=== PATIENT | male | born 1940 | race Hispanic/Latino ===

== ENCOUNTER 2020-03-11 13:22 | Inpatient (IN) | payer MEDICARE, OTHER ==
--- NOTE | 2020-03-11 14:52 | RAD ---
CHEST ONE VIEW PORTABLE: History: Generalized weakness FINDINGS: There is cardiomegaly. There are increased linear and interstitial markings noted bilaterally, slight ly more prominent in the right midlung zone with some associated rotation. Evidence for right pleural effusion, small. Bony demineralization. No prior radiographs. IMPRESSION: Nonspecific linear and interstitial parenchymal changes bilaterally which may represent chronic hudson e or could represent some minimal interstitial edema or possibly mild atypical pneumonitis including viral pneumonia. Evidence for right pleural effusion, small. Cardiomegaly. Atherosclerosis of the aor ta. POS: OFF
[2020-03-11 14:56] LABS: #Eosinphils 0.1 thou/uL (0.0-0.7); #Lymphocytes 0.6 thou/uL (1.20-3.40); #Monocytes 0.9 thou/uL (0.11-0.59); #Neutrophils 10.2 thou/uL (1.40-6.50); %Basophils 0.2 % (0.0-1.0); %Eosinophils 0.4 % (0.0-10.0); %Lymphocytes 5.4 % (21.0-51.0); %Monocytes 7.9 % (0.0-10.0); %Neutrophils 86.1 % (42.0-75.0); Hemoglobin 10.6 g/dL (14.0-18.0); Mean Corpuscular HGB CONC 33.1 g/dL (32.0-36.0); Mean Corpuscular Hemoglobin 41.3 pg (27.0-31.0); Mean Platelet Volume 8.4 fL (7.4-10.4); Platelet Count 184 thou/uL (130-400); RBC Distribution Width 14.9 % (11.5-14.5); Red Blood Cell (RBC) Count 2.57 mill/uL (4.70-6.10); White Blood Cell (WBC) Count 11.8 thou/uL (4.8-10.8)
[2020-03-11 15:12] LABS: ALT (SGPT) 13 U/L (8-55); AST (SGOT) 30 U/L (5-34); Albumin 3.3 g/dL (3.4-4.8); Alkaline Phosphatase 91 U/L (40-110); Anion Gap 30 mmol/L (10-20); BUN (Urea Nitrogen) 54 mg/dL (8.4-25.7); Bilirubin, Total 0.8 mg/dL (0.2-1.2); CK (CPK) 636 U/L (30-200); Calc. Creatinine Clearance 0 mL/min (70-130); Calcium 8.7 mg/dL (7.8-10.44); Carbon Dioxide 17 mmol/L (23-31); Chloride 99 mmol/L (98-107); Estimated GFR-MDRD 9; Globulin 3.1 g/dL (2.4-3.5); Glucose 177 mg/dL (83-110); Hypochromia SLIGHT = 6-15 cells (100X) (0-5/hpf); MDiff Complete? YES; Macrocytosis MODERATE=16-30 cells (100X) (0-5/hpf); Platelet Morphology Comment Appears Adequate; Polychromasia SLIGHT = 2-3 cells (100X) (0-2/hpf); Potassium 4.7 mmol/L (3.5-5.1); Protein, Total 6.4 g/dL (5.8-8.1); Sodium 141 mmol/L (136-145)
[2020-03-11 15:39] LABS: CKMB 7.8 ng/mL (0-6.6)
--- NOTE | 2020-03-11 15:57 | CT ---
BRAIN CT WITHOUT IV CONTRAST: History: Altered mental status. Weakness. Injury from a fall. FINDINGS: There is some atrophy and chronic white matter ischemic change. No focal mass or midline shift. No in tra or extraaxial hemorrhage. Bilateral parotid gland masses are noted measuring up to 2.9 cm on the left side with smaller masses involving the right parotid gland, but unchanged from a prior neck CT, 03-06-17. IMPRESSION: Atrophy and chronic white matter ischemic change. No mass or bleed. Extensive sinus mucosal changes including the maxillary and ethmoid sinuses, worse on the right side. Overall stable appearing bilateral parotid gland high density masses. POS: OFF
[2020-03-11 16:02] LABS: Bacteria/HPF 2+ HPF (None Seen); Bilirubin Negative (Negative); Blood, Urine 3+ (Negative); Clarity Turbid (Clear); Glucose, Urine (Dipstick) 50 mg/dL (Negative); Ketone, Urine Negative (Negative); Leukocyte 500 Leu/uL (Negative); Nitrite Negative (Negative); Protein, Urine (Dipstick) 100 mg/dL (Neg-Trace); RBC/HPF 21-50 HPF (0-3); Specific Gravity, Urine 1.024 (1.002-1.036); Squamous Epithelial 0-3 HPF (0-3); Urobilinogen Normal mg/dL (Less than 2); WBC/HPF Greater than 50 HPF (0-3); pH, Urine 5.5 (5.0-9.0)
[2020-03-11 16:03] LABS: Acetaminophen Less than 6.0 mcg/mL (10.0-30.0); Alcohol Less than 10 mg/dL (Less than 10); Salicylate Less than 8.0 mg/dL (15.0-30.0)
[2020-03-11 16:11] LABS: Amphetamine Not Detected (NotDetected); Barbiturates Screen Not Detected (NotDetected); Benzodiazepine Screen Not Detected (NotDetected); Cocaine Metabolite Screen Not Detected (NotDetected); Medtox Control Line Valid? VALID (VALID); Medtox Reader # READER 4; Methadone Not Detected (NotDetected); Methamphetamine Not Detected (NotDetected); Opiate Screen Not Detected (NotDetected); Oxycodone Screen Not Detected (NotDetected); Phencyclidine (PCP) Not Detected (NotDetected); THC/Cannabinoid Screen Not Detected (NotDetected); Tricyclic Screen Not Detected (NotDetected)
--- NOTE | 2020-03-11 17:11 | PDOC.HHP ---
Hospitalist HPI - History of Present Illness Altered mental status History of Present Illness: Patient is a pleasant 79-year-old gentleman who was seen in the emergency room on March 11, 2024 altered mental status, weakness and fall. Please note that patient has 2 different medical record numbers, [id number] and [id number]. These records will need to be merged. Patient was last hospitalized at this facility in March 2018 for scrotal abscess status post incision and drainage and packing. He is a dialysis patient and has dialysis through Dr. Jason. Patiently reportedly missed dialysis a couple of days ago. He also reportedly started a muscle relaxant pill. His son is not aware of the name of the pill but it was reportedly started 2 or 3 days ago. Today she was found by his family in his home covered in feces as well as dried blood. Patient was reportedly complaining of weakness yesterday and therefore they went to check on him today. Patient is unable to provide any significant history today. He is mildly agitated, attempting to pull out intravenous line. Review of systems: Could not be completed secondary to patient's cognitive status. ED Course: BP: 180/96, Pulse: 79, Resp: 20, O2 sat: 95 on (Room Air), Time: 03/11/2020 15: 30. Hospitalist ROS - Review of Systems ROS unobtainable: due to mental status Hospitalist History - Past Medical History Other Medical History: Past medical history:Diabetes mellitus type 2 dyslipidemia hypertension coronary artery disease chronic kidney disease Surgical history: Hernia surgery cardiac stents carotid stents and scrotal abscess status post incision and drainage Social history: Unable to obtain. In the past, patient was smoking 1 pack of cigarettes a day and denied alcohol use or recreational drug use. Family history: No family history of coronary artery disease. Allergies: No known drug allergies. Current medications: These will need to be clarified, but in the past he was on aspirin, calcitriol, carvedilol, Lasix, hydralazine, Lantus insulin, isosorbide mononitrate, latanoprost eyedrops, Procardia XL, timolol/brimonidine/ dorzolamide eyedrops. - Exam General Appearance: awake alert Eye: PERRL, anicteric sclera ENT: normocephalic atraumatic, no oropharyngeal lesions, moist mucosa Neck: supple, symmetric, no thyromegaly, no lymphadenopathy Heart: RRR, no gallops, no rubs, normal peripheral pulses Respiratory: CTAB, no wheezes, no rales, no ronchi Gastrointestinal: soft, non-tender, non-distended, normal bowel sounds Extremities: 2+ LE edema Skin - other findings: Multiple bruises Neurological - other findings: Unable to assess Musculoskeletal - other findings: Moving all 4 extremities Psychiatric: normal affect (Patient appears oriented to person, not to place or time) Hospitalist Results - Labs Result Diagrams: 03/11/20 14:41 03/11/20 14:41 Lab results: WBC 11.8 thou/uL (4.8-10.8) H 03/11/20 14:41 Hgb 10.6 g/dL (14.0-18.0) L 03/11/20 14:41 Hct 32.2 % (42.0-52.0) L 03/11/20 14:41 MCV 125.0 fL (78.0-98.0) H 03/11/20 14:41 Plt Count 184 thou/uL (130-400) 03/11/20 14:41 Neutrophils % 86.1 % (42.0-75.0) H 03/11/20 14:41 Sodium 141 mmol/L (136-145) 03/11/20 14:41 Potassium 4.7 mmol/L (3.5-5.1) 03/11/20 14:41 Chloride 99 mmol/L (98-107) 03/11/20 14:41 Carbon Dioxide 17 mmol/L (23-31) L 03/11/20 14:41 BUN 54 mg/dL (8.4-25.7) H 03/11/20 14:41 Creatinine 6.23 mg/dL (0.7-1.3) H 03/11/20 14:41 Glucose 177 mg/dL (83-110) H 03/11/20 14:41 Lactic Acid 2.2 mmol/L (0.5-2.2) 03/11/20 14:41 Calcium 8.7 mg/dL (7.8-10.44) 03/11/20 14:41 Total Bilirubin 0.8 mg/dL (0.2-1.2) 03/11/20 14:41 AST 30 U/L (5-34) 03/11/20 14:41 ALT 13 U/L (8-55) 03/11/20 14:41 Alkaline Phosphatase 91 U/L (40-110) 03/11/20 14:41 Ammonia 32 umol/L (18-72) 03/11/20 14:41 Creatine Kinase 636 U/L (30-200) H 03/11/20 14:41 CK-MB (CK-2) 7.8 ng/mL (0-6.6) H* 03/11/20 14:41 Troponin I 0.151 ng/mL (< 0.028) H 03/11/20 14:41 Serum Total Protein 6.4 g/dL (5.8-8.1) 03/11/20 14:41 Albumin 3.3 g/dL (3.4-4.8) L 03/11/20 14:41 Urine Ketones Negative mg/dL (Negative) 03/11/20 13:59 Urine Blood 3+ (Negative) A 03/11/20 13:59 Urine Nitrite Negative (Negative) 03/11/20 13:59 Ur Leukocyte Esterase 500 Michelle/uL (Negative) A 03/11/20 13:59 Urine RBC 21-50 HPF (0-3) A 03/11/20 13:59 Urine WBC Greater than 50 HPF (0-3) A 03/11/20 13:59 Ur Squamous Epith Cells 0-3 HPF (0-3) 03/11/20 13:59 Urine Bacteria 2+ HPF (None Seen) A 03/11/20 13:59 Additional comment: Troponin I is in the indeterminate range of 0.151. Lactic acid is normal at 2.2. Ammonia is normal at 32. Creatinine kinase is elevated at 32. BNP is elevated at 16,729.8. Urinalysis is positive for leukocyte esterase and bacteria. Urine and plasma drug screens are essentially unremarkable. - EKG Interpretation EKG: EKG by my review shows normal sinus rhythm, no ST changes to suggest an acute coronary syndrome. - Radiology Interpretation Chest x-ray Status: image reviewed by me Additional Comment: CHEST ONE VIEW PORTABLE: History: Generalized weakness FINDINGS: There is cardiomegaly. There are increased linear and interstitial markings noted bilaterally, slight ly more prominent in the right midlung zone with some associated rotation. Evidence for right pleural effusion, small. Bony demineralization. No prior radiographs. IMPRESSION: Nonspecific linear and interstitial parenchymal changes bilaterally which may represent chronic hudson e or could represent some minimal interstitial edema or possibly mild atypical pneumonitis including viral pneumonia. Evidence for right pleural effusion, small. Cardiomegaly. Atherosclerosis of the aor ta. CT scan - head Status: image reviewed by me Additional Comment: BRAIN CT WITHOUT IV CONTRAST: History: Altered mental status. Weakness. Injury from a fall. FINDINGS: There is some atrophy and chronic white matter ischemic change. No focal mass or midline shift. No in tra or extraaxial hemorrhage. Bilateral parotid gland masses are noted measuring up to 2.9 cm on the left side with smaller masses involving the right parotid gland, but unchanged from a prior neck CT, 03-06-17. IMPRESSION: Atrophy and chronic white matter ischemic change. No mass or bleed. Extensive sinus mucosal changes including the maxillary and ethmoid sinuses, worse on the right side. Overall stable appearing bilateral parotid gland high density masses. Hospitalist H&P A/P - Plan Plan: # acute metabolic encephalopathy: Etiology is unclear,, could be multifactorial including muscle relaxant medication, urinary tract infection and other causes. Patient will be admitted to the hospital for further management. #Urinary tract infection: Patient will be started on ceftriaxone, follow urine culture. #End-stage renal disease on dialysis: Patient reportedly missed dialysis session. Nephrology service is being contacted by ER physician to arrange for dialysis. #Rhabdomyolysis: CK level is relatively low in the 600s range. For now trend CK. Not providing IV fluids at this time since patient actually appears to be in volume overload. #Diabetes mellitus type 2: Start Accu-Cheks and insulin sliding scale. #Hypertension: Resume patient's home medications once clarified, monitor vital signs and titrate antihypertensives as needed. # elevated troponin: Could be secondary to end-stage renal disease. However, given patient's history of coronary artery disease, monitor on telemetry and trend troponins. Patient to be ruled out for COVID-19. Many thanks for allowing me to participate in your patient's care. Please feel free to contact me with any questions or concerns. Level of risk: High. Level of complexity: High. Primary care provider:Dr. Jamar Moreno.
[2020-03-11] MEDS ORDERED: Dextrose 50% Abboject 50 ML SYRINGE SLOW IVP PRN (17:26)
[2020-03-11] MEDS ORDERED: Dextrose 5% in Water 1,000 ML IV PRN (17:26)
[2020-03-11] MEDS ORDERED: Acetaminophen 650 MG Suppository PR PRN (17:26)
[2020-03-11] MEDS ORDERED: cefTRIAXone\\ROCEPHIN 2 GM VIAL ONE (17:37)
[2020-03-11 18:06] LABS: Lactic Acid 2.5 mmol/L (0.5-2.2)
[2020-03-11 18:24] LABS: SARS-CoV-2 NAA Rapid Test Not Detected (NotDetected)
[2020-03-11 18:53] LABS: Troponin I 0.174 ng/mL (< 0.028)
[2020-03-11 21:44] LABS: Troponin I 0.184 ng/mL (< 0.028)
[2020-03-11] MEDS: hydrALAZINE 25 MG TAB PO SCH (23:28)
--- NOTE | 2020-03-12 01:05 | CON ---
DATE OF CONSULTATION: HISTORY OF PRESENT ILLNESS: Mr. Mcintosh is a 79-year-old white male who was admitted for mental status change. He was found at home to be quite confused and quite weak. He had also feces all over his body at that time. We are being consulted for management of his ESRD. He did miss dialysis yesterday. REVIEW OF SYSTEMS: Positive for confusion. No chest pain or any respiratory distress noted. No syncopal episode. No productive cough. Denies any fever or chills. No abdominal pain. Positive for diarrhea. No dysuria. No abdominal pain. MEDICATIONS: Currently not available. PAST MEDICAL HISTORY: 1. ESRD. 2. Type 2 diabetes mellitus. 3. Hypertension. PAST SURGICAL HISTORY: Status post cuffed hemodialysis catheter placed, status post AV fistula. SOCIAL HISTORY: The patient is a . He lives in [place]. He has 1 child. History of smoking 1 pack per day for the last several years. Currently, rare alcohol. No IV drug abuse. Status post blood transfusion. ALLERGIES: UNKNOWN. TRAUMA: None. IMMUNIZATION: Up-to-date. HOSPITALIZATION: Please see past medical history. FAMILY HISTORY: No family history of ESRD. PHYSICAL EXAMINATION: VITAL SIGNS: Blood pressure 180/96, heart rate 79, respiratory rate 20, O2 sat 95% on room air. GENERAL: The patient is awake, but confused, restless, but not in cardiorespiratory distress. SKIN: Adequate turgor. HEENT: Pinkish conjunctivae. Anicteric sclerae. NECK: No neck mass. No carotid bruits. No JVD. CHEST: No deformities. LUNGS: Decreased breath sounds. HEART: Normal sinus rhythm. No murmurs, gallops, or rubs. ABDOMEN: Globular, soft, nontender. No masses. EXTREMITIES: Trace edema. LABORATORY DATA: Of March 11, 2020, white count 11.8, hemoglobin 10.6. Sodium 141, potassium 4.7, chloride 99, carbon dioxide 17, BUN 54, creatinine 6.23, glucose 177, calcium 8.7, AST 30, ALT 13, albumin 3.3. Troponin I 0.151. BNP 16,729. Lactic acid is 2.2. Chest x-ray shows increased lung markings. ASSESSMENT AND PLAN: 1. End-stage renal disease. The patient missed dialysis Friday. Our plan is to schedule him for hemodialysis in a.m. with fluid removal as tolerated by the patient. 2. Elevated BNP. The patient may have underlying chronic obstructive pulmonary disease as well as a possible mild congestive heart failure. We will max out fluid removal with dialysis tomorrow. 3. Mental status change. Tentative report CAT scan showed no acute intracranial abnormality. Continue supportive care. Consider metabolic encephalopathy. It is also possible that the patient was started on certain new medications, which we could not obtain the name. This could be playing a factor in the mental status change. 4. Overall, agree with current management. I did not find any indication for any emergent dialysis tonight. Job ID: [id number]
[2020-03-12 04:53] LABS: #Lymphocytes 0.8 thou/uL (1.20-3.40); #Monocytes 1.1 thou/uL (0.11-0.59); #Neutrophils 13.8 thou/uL (1.40-6.50); %Basophils 0.3 % (0.0-1.0); %Eosinophils 0.2 % (0.0-10.0); %Lymphocytes 4.8 % (21.0-51.0); %Monocytes 6.9 % (0.0-10.0); %Neutrophils 87.9 % (42.0-75.0); Hemoglobin 10.5 g/dL (14.0-18.0); Mean Corpuscular HGB CONC 31.7 g/dL (32.0-36.0); Mean Platelet Volume 8.4 fL (7.4-10.4); Platelet Count 168 thou/uL (130-400); Red Blood Cell (RBC) Count 2.68 mill/uL (4.70-6.10); White Blood Cell (WBC) Count 15.8 thou/uL (4.8-10.8)
[2020-03-12 05:22] LABS: Anion Gap 30 mmol/L (10-20); BUN (Urea Nitrogen) 60 mg/dL (8.4-25.7); CK (CPK) 988 U/L (30-200); Calc. Creatinine Clearance 9 mL/min (70-130); Calcium 8.5 mg/dL (7.8-10.44); Carbon Dioxide 15 mmol/L (23-31); Chloride 100 mmol/L (98-107); Estimated GFR-MDRD 9; Glucose 150 mg/dL (83-110); Potassium 4.9 mmol/L (3.5-5.1); Sodium 140 mmol/L (136-145)
[2020-03-12] MEDS ORDERED: hydrALAZINE 20 MG/ML VIAL SLOW IVP SCH ×3 (06:15→15:00)
[2020-03-12 06:33] LABS: ALT (SGPT) 101 U/L (8-55); AST (SGOT) 148 U/L (5-34); Albumin 3.2 g/dL (3.4-4.8); Alkaline Phosphatase 98 U/L (40-110); Bilirubin, Direct 0.6 mg/dL (0.1-0.3); Bilirubin, Total 0.8 mg/dL (0.2-1.2); Protein, Total 6.5 g/dL (5.8-8.1)
[2020-03-12] MEDS ORDERED: Carvedilol 25 MG TAB PO SCH (08:00)
[2020-03-12] MEDS ORDERED: Aspirin 81 mg Enteric Coated Tablet PO SCH (09:00)
[2020-03-12] MEDS ORDERED: Prevnar 13-Val Conj/PF 0.5 ML SYRINGE IM ONE (09:00)
[2020-03-12 09:12] LABS: Hep B Surf Ag Reflx Confirmation S/CO (NonReactive)
[2020-03-12 09:15] LABS: HBSAg Index 1.35 S/CO (0-0.99)
--- NOTE | 2020-03-12 09:30 | PRG ---
DATE OF SERVICE: 03/12/2020 SUBJECTIVE: Mr. Mcintosh is a 79-year-old male with ESRD, was admitted for mental status change and for a fall. During the initial evaluation, he was also found to be in mild CHF. BNP was also elevated. Our plan is to do an extra hemodialysis with him today. I plan to do at least a 3-hour hemodialysis with attempt to remove 3 L of fluid as tolerated by the patient. This morning, he is less agitated and less confused. OBJECTIVE: VITAL SIGNS: Blood pressure is 209/90 - before BP meds, heart rate 80, respiratory rate 20, temperature 98, O2 saturation 98% on room air. GENERAL: The patient is awake, slightly confused, but not in distress. SKIN: Adequate turgor. HEENT: Pinkish conjunctivae. Anicteric sclerae. NECK: No neck mass. No carotid bruits. No JVD. CHEST: No deformities. LUNGS: Clear breath sounds. HEART: Normal sinus rhythm. No murmurs, gallops, or rubs. ABDOMEN: Globular, soft, nontender. No masses. EXTREMITIES: Positive for edema. No deformities. Medications of March 12, 2020, were reviewed. LABORATORY DATA: Laboratories of March 12, 2020, white count 15.8, hemoglobin 10.5. Sodium 140, potassium 4.9, chloride 100, carbon dioxide 15, BUN 60, creatinine 6.35. CK is 988. ASSESSMENT AND PLAN: 1. Congestive heart failure/elevated BNP - extra hemodialysis today, attempt 3 L fluid removal as tolerated. 2. Labile hypertension. Adjust BP medications as needed. 3. End-stage renal disease. We will continue current Friday, Friday, and Friday hemodialysis regimen, 4-hour hemodialysis treatment. Due to the congestive heart failure, extra dialysis will be done today. Overall, agree with current management. Job ID: [id number]
[2020-03-12] MEDS ORDERED: Ondansetron PF 4 MG/2 ML Vial IVP PRN (10:04)
[2020-03-12] MEDS ORDERED: Calcium Carbonate 500 MG ChewTAB PO PRN (10:04)
[2020-03-12] MEDS ORDERED: Ondansetron ODT 4 MG TAB PO PRN (10:04)
[2020-03-12] MEDS ORDERED: hydrALAZINE 20 MG/ML VIAL SLOW IVP PRN (10:04)
[2020-03-12] MEDS: NIFEdipine XL 30 MG TAB PO SCH (12:13)
[2020-03-12] MEDS: hydrALAZINE 25 MG TAB PO SCH (12:13)
[2020-03-12] MEDS: Finasteride 5 MG TAB PO SCH (12:14)
[2020-03-12] MEDS: Ferrous Sulfate 325 MG TAB PO SCH ×2 (12:14→16:59)
[2020-03-12] MEDS: Calcitriol 0.25 MCG CAP PO SCH (12:14)
[2020-03-12] MEDS ORDERED: Vancomycin HCl 750 MG in Sodium Chloride 0.9% 250 ML 250 ML IVPB SCH (12:30)
[2020-03-12] MEDS ORDERED: HOLD VANCOMYCIN FOR LEVEL >20 FS SCH (12:30)
[2020-03-12] MEDS ORDERED: Vancomycin 1 GM in Premix Bag 1 BAG IVPB SCH (12:30)
[2020-03-12] MEDS ORDERED: Vancomycin HCl 500 MG in Sodium Chloride 0.9% 100 ML IVPB SCH (12:30)
[2020-03-12] MEDS ORDERED: Vancomycin HCl 1.25 GM in Sodium Chloride 0.9% 250 ML 250 ML IVPB SCH (12:30)
[2020-03-12] MEDS ORDERED: Vancomycin HCl 250 MG in Sodium Chloride 0.9% 100 ML IVPB SCH (12:30)
[2020-03-12] MEDS: Labetalol HCl 100 MG/20 ML VIAL SLOW IVP SCH ×3 (13:55→23:32)
[2020-03-12] MEDS: Nitroglycerin 2% Ointment 1 INCH/1 GM Packet TOP SCH ×2 (13:56→18:40)
[2020-03-12] MEDS: cefTRIAXone\\ROCEPHIN 1 GM in Sodium Chloride 0.9% 100 ML IVPB SCH (17:37)
[2020-03-12] MEDS ORDERED: Clopidogrel Bisulfate 75 MG TAB PO SCH (21:00)
[2020-03-12] MEDS: Labetalol HCl 100 MG/20 ML VIAL SLOW IVP PRN (22:05)
[2020-03-12] MEDS: Heparin 5,000 UNITS/ML VIAL SC SCH (22:06)
[2020-03-12] MEDS: Famotidine/PF 20 mg/2ml Vial SLOW IVP SCH (22:06)
[2020-03-12] MEDS: Famotidine 20 MG TAB PO SCH (22:31)
[2020-03-12] MEDS: Senokot S 8.6-50 MG TAB PO SCH (22:32)
--- NOTE | 2020-03-12 23:11 | PDOC.HOSPP ---
- Subjective Encounter Date: 03/12/20 Encounter Time: 09:00 Subjective: Patient seen and examined for altered mentation. Undergoing hemodialysis. Mentation slowly improving. No significant overnight events. - Objective Vital Signs & Weight: Vital Signs (12 hours) Temp Pulse Resp BP Pulse Ox 03/12/20 22:05 81 03/12/20 21:45 98.4 F 81 20 212/98 H 94 L 03/12/20 16:35 72 146/66 H 03/12/20 15:13 98.8 F 83 16 185/92 H 96 03/12/20 13:55 97.8 F 86 16 199/96 H 94 L Weight Weight 146 lb I&O: 03/11/20 03/12/20 03/13/20 06:59 06:59 06:59 Intake Total 350 Balance 350 Result Diagrams: 03/12/20 04:38 03/12/20 04:38 Additional Labs: Accuchecks 03/12/20 03/12/20 16:35 06:11 POC Glucose 113 H 137 H Radiology Reviewed by me: Yes (CT brain negative) EKG Reviewed by me: Yes (Sinus rhythm on telemetry) Hospitalist ROS - Review of Systems ROS unobtainable: due to mental status - Medication Medications: Active Medications Generic Name Dose Route Start Last Admin Trade Name Freq PRN Reason Stop Dose Admin Calcitriol 0.25 mcg 03/12/20 09:00 03/12/20 12:14 Rocaltrol PO Not Given DAILY [facility] Carvedilol 12.5 mg 03/12/20 08:00 03/12/20 12:13 Coreg PO Not Given BID-WM [facility] Clopidogrel Bisulfate 75 mg 03/12/20 21:00 03/12/20 22:31 Plavix PO Not Given HS LINDA Famotidine 20 mg 03/12/20 21:00 03/12/20 22:06 Pepcid SLOW IVP 20 mg Q12HR LINDA Administration Famotidine 20 mg 03/12/20 21:00 03/12/20 22:31 Pepcid PO Not Given BID LINDA Ferrous Sulfate 325 mg 03/12/20 08:00 03/12/20 16:59 Feosol PO Not Given BID-WM [facility] Finasteride 5 mg 03/12/20 09:00 03/12/20 12:14 Proscar PO Not Given DAILY [facility] Heparin Sodium (Porcine) 5,000 units 03/12/20 21:00 03/12/20 22:06 Heparin SC 5,000 units BID LINDA Administration Hydralazine HCl 75 mg 03/11/20 21:00 03/12/20 12:13 Apresoline PO Not Given TID [facility] Ceftriaxone Sodium 1 gm/ 100 mls @ 200 mls/hr 03/12/20 18:00 03/12/20 17:37 Sodium Chloride IVPB 100 mls 1800 [facility] Administration Isosorbide Mononitrate 60 mg 03/12/20 09:00 03/12/20 12:13 Imdur PO Not Given DAILY [facility] Labetalol HCl 10 mg 03/12/20 11:00 03/12/20 17:04 Normodyne SLOW IVP Not Given Q6H [facility] Labetalol HCl 10 mg 03/12/20 10:04 03/12/20 22:05 Normodyne SLOW IVP 10 mg Q1H PRN Administration Systolic BP > 180 Nifedipine 30 mg 03/12/20 09:00 03/12/20 12:13 Procardia Xl PO Not Given DAILY [facility] Nitroglycerin 0.5 inch 03/12/20 11:00 03/12/20 18:40 Nitro-Bid 2% Ointment TOP 0.5 inch Q8H [facility] Administration Senna/Docusate Sodium 2 tab 03/12/20 21:00 03/12/20 22:32 Senokot S PO Not Given BID [facility] Sodium Chloride 10 ml 03/12/20 10:04 03/12/20 22:05 Flush - Normal Saline IVF 10 ml PRN PRN Administration Saline Flush - Exam General Appearance: NAD General - other findings: Undergoing hemodialysis Neck: supple, no JVD Heart: RRR, no gallops, no rubs, normal peripheral pulses Respiratory: no wheezes, no rales, normal chest expansion, rhonchi Gastrointestinal: soft, non-distended, normal bowel sounds, no guarding, no rigidity Extremities: no cyanosis, no clubbing Skin: normal turgor Musculoskeletal: normal tone, normal strength, no muscle wasting, generalized weakness Psychiatric: somnolent Hosp A/P - Plan DVT proph w/heparin (Patient works), DVT proph w/SCDs Toxic metabolic encephalopathy probably due to recent use of baclofen versus UTI versus pneumonia ?Aspiration 1 of 2 blood culture positive for coagulase-negative staph - suspected contaminant Rhabdomyolysis Nonsustained ventricular tachycardia Coronary artery disease status post stent placement End-stage renal disease on hemodialysis Diabetes mellitus type II Hypertension Metabolic acidosis 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 , consult cardiology, add echocardiogram, labs in a.m Plan discussed with patient's son over the phone.Consider brain MRI if mentation does not improve. Please note that patient has 2 different medical record number. For previous records please refer to
[2020-03-13] MEDS: Labetalol HCl 100 MG/20 ML VIAL SLOW IVP PRN ×2 (00:40→21:23)
[2020-03-13] MEDS: hydrALAZINE 20 MG/ML VIAL SLOW IVP PRN ×2 (02:31→18:50)
[2020-03-13] MEDS: Labetalol HCl 100 MG/20 ML VIAL SLOW IVP SCH ×4 (04:10→23:31)
[2020-03-13] MEDS: Nitroglycerin 2% Ointment 1 INCH/1 GM Packet TOP SCH ×3 (04:10→18:15)
[2020-03-13 04:51] LABS: Anion Gap 24 mmol/L (10-20); BUN (Urea Nitrogen) 41 mg/dL (8.4-25.7); CK (CPK) 480 U/L (30-200); Calc. Creatinine Clearance 13 mL/min (70-130); Calcium 8.4 mg/dL (7.8-10.44); Carbon Dioxide 19 mmol/L (23-31); Chloride 103 mmol/L (98-107); Estimated GFR-MDRD 13; Glucose 100 mg/dL (83-110); Potassium 4.1 mmol/L (3.5-5.1); Sodium 142 mmol/L (136-145)
[2020-03-13 04:53] LABS: ALT (SGPT) 156 U/L (8-55); AST (SGOT) 120 U/L (5-34); Alkaline Phosphatase 94 U/L (40-110); Bilirubin, Direct 0.4 mg/dL (0.1-0.3); Bilirubin, Total 0.5 mg/dL (0.2-1.2)
[2020-03-13 05:11] LABS: #Lymphocytes 0.9 thou/uL (1.20-3.40); #Monocytes 0.7 thou/uL (0.11-0.59); #Neutrophils 10.5 thou/uL (1.40-6.50); %Eosinophils 0.4 % (0.0-10.0); %Lymphocytes 7.6 % (21.0-51.0); %Monocytes 5.6 % (0.0-10.0); %Neutrophils 86.4 % (42.0-75.0); Anisocytosis SLIGHT = 6-15 cells (100X) (0-5/hpf); Hemoglobin 10.6 g/dL (14.0-18.0); MDiff Complete? YES; Mean Corpuscular HGB CONC 33.9 g/dL (32.0-36.0); Mean Corpuscular Hemoglobin 41.5 pg (27.0-31.0); Mean Platelet Volume 9.4 fL (7.4-10.4); Platelet Count 154 thou/uL (130-400); RBC Distribution Width 15.2 % (11.5-14.5); Red Blood Cell (RBC) Count 2.55 mill/uL (4.70-6.10); White Blood Cell (WBC) Count 12.2 thou/uL (4.8-10.8)
--- NOTE | 2020-03-13 07:57 | RAD ---
RADIOGRAPH CHEST 1 VIEW: DATE: 03/13/2020 TIME: 5:37 AM HISTORY: 79-year-old male follow-up abnormal chest radiograph COMPARISON: 03/11/2020 FINDINGS: Right pleural effusion partially obscuring underlying lung parenchyma at right base. Cardiomegaly and at least mild pulmonary venous engorgement. No pneumothorax. No new consolidation identified. Prominent interstitial markings mentioned previously, including right midlung zone, now partially obs cured by multiple EKG leads. No interval change overall. IMPRESSION: 1) small right pleural effusion. 2) mild cardiomegaly and mild pulmonary venous congestion. 3) no interval change.
--- NOTE | 2020-03-13 08:30 | PRG ---
DATE OF SERVICE: 03/13/2020 SUBJECTIVE: Mr. Mcintosh is a 79-year-old white male with ESRD, who was admitted for mental status change. He was also incidentally found to have an elevated BNP as well as CHF. He underwent hemodialysis yesterday. Our plan is to do another dialysis session with him, which will be his regular dialysis. He is feeling better. However, the patient is still confused. OBJECTIVE: VITAL SIGNS: Blood pressure 190/88 - before BP medications, heart rate 66, respiratory rate 19, temperature 99.1, and O2 saturation 97% on room air. GENERAL: The patient is awake, but confused, not in distress. SKIN: Adequate turgor. HEENT: Pinkish conjunctivae. Anicteric sclerae. NECK: No neck mass. No carotid bruits. No JVD. CHEST: No deformities. LUNGS: Decreased breath sounds. HEART: Normal sinus rhythm. No murmur. No gallops. No rubs. ABDOMEN: Globular, soft, and nontender. No masses. EXTREMITIES: No edema. No deformities. MEDICATIONS: Of March 13, 2020, was reviewed. LABORATORY DATA: Laboratories of March 13, 2020; white count 12.2, hemoglobin 10.6. Sodium 142, potassium 4.1, chloride 103, carbon dioxide 19, BUN 41, creatinine 4.42, AST 120, and ALT 156. Albumin is noted to be 3.0. IMAGING DATA: Chest x-ray, increased lung markings, relatively unchanged - March 13, 2020, ASSESSMENT AND PLAN: 1. Mental status change - most likely metabolic. CAT scan showed no acute intracranial abnormality. 2. End-stage renal disease, stable. We will continue current hemodialysis regimen. The patient is scheduled for his regular hemodialysis treatment. Again max out fluid removal as tolerated by the patient. 3. Borderline anemia. We will continue to observe. Restart Epogen once the hemoglobin become less than 10. Overall, agree with current management. Recheck basic metabolic panel and CBC in a.m. Job ID: [id number] [facility]
[2020-03-13] MEDS ORDERED: Aspirin 325 mg Enteric Coated Tablet PO SCH (09:00)
[2020-03-13] MEDS: Ferrous Sulfate 325 MG TAB PO SCH ×2 (09:25→17:28)
[2020-03-13] MEDS: Famotidine 20 MG TAB PO SCH (09:26)
[2020-03-13] MEDS: Clopidogrel Bisulfate 75 MG TAB PO SCH (09:26)
[2020-03-13] MEDS: Calcitriol 0.25 MCG CAP PO SCH (09:26)
[2020-03-13] MEDS: Finasteride 5 MG TAB PO SCH (09:27)
[2020-03-13] MEDS: Senokot S 8.6-50 MG TAB PO SCH ×2 (09:27→21:41)
[2020-03-13 09:41] LABS: Vancomycin, Random 12.8 ug/mL (See Comment)
[2020-03-13] MEDS: Heparin 5,000 UNITS/ML VIAL SC SCH ×2 (09:41→21:15)
[2020-03-13] MEDS: Famotidine/PF 20 mg/2ml Vial SLOW IVP SCH (09:41)
[2020-03-13] MEDS: Aspirin 300 MG Suppository PR SCH (09:42)
--- NOTE | 2020-03-13 12:52 | CON ---
NEUROLOGY CONSULTATION DATE OF CONSULTATION: 03/13/2020 REASON FOR CONSULTATION: Altered mental status. HISTORY OF PRESENT ILLNESS: Mr. Den Mcintosh is a 79-year-old male who presented to the emergency room at [facility] on March 11, 2020 with altered mental status secondary to weakness and a fall. He was last hospitalized at our hospital in March 2018 because of scrotal abscess and he is a dialysis patient. History is obtained from review of the medical records. According to that, the patient missed dialysis couple of days ago and he had started a muscle relaxant and not aware of the pain and since then, he has been extremely confused and altered. The patient's family member found him at home covered in feces as well as dried blood and there was a concern about weakness. Head CT was done on initial stay, which was negative for acute intracranial process. REVIEW OF SYSTEMS: Unobtainable due to mental status. PAST MEDICAL HISTORY: Diabetes, dyslipidemia, hypertension, coronary artery disease, chronic kidney disease. PAST SURGICAL HISTORY: Hernia repair, cardiac stents, scrotal abscess incision and drainage. SOCIAL HISTORY: The patient has a history of smoking one pack of cigarettes a day. There is no documented history of alcohol or recreational drug use. FAMILY HISTORY: No significant history of premature coronary artery disease. ALLERGIES: NO KNOWN DRUG ALLERGIES. MEDICATIONS: 1. Aspirin. 2. Calcitriol. 3. Carvedilol. 4. Lasix. 5. Hydralazine. 6. Lantus insulin. 7. Isosorbide mononitrate. 8. Latanoprost eye drops. 9. Procardia XL. 10. Timolol. 11. Brimonidine/dorzolamide eye drops. - Objective Vital Signs & Weight: Vital Signs (12 hours) Temp Pulse Resp BP Pulse Ox 03/13/20 07:08 99.1 F 66 19 190/88 H 97 03/13/20 04:10 64 03/13/20 04:02 98.9 F 64 17 161/73 H 94 L Weight Admit Weight 147 lb 1.6 oz Weight 137 lb 2.04 oz I&O: 03/12/20 03/13/20 03/14/20 06:59 06:59 06:59 Intake Total 350 Balance 350 Accuchecks 03/13/20 03/13/20 03/13/20 11:00 05:48 03:15 POC Glucose 105 110 102 03/12/20 16:35 POC Glucose 113 H Active Medications Generic Name Dose Route Start Last Admin Trade Name Freq PRN Reason Stop Dose Admin Aspirin 300 mg 03/13/20 09:00 03/13/20 09:42 Aspirin PA 300 mg DAILY [facility] Administration Aspirin 325 mg 03/13/20 09:00 03/13/20 09:25 Ecotrin PO Not Given DAILY [facility] Calcitriol 0.25 mcg 03/12/20 09:00 03/13/20 09:26 Rocaltrol PO Not Given DAILY [facility] Carvedilol 12.5 mg 03/12/20 08:00 03/12/20 12:13 Coreg PO Not Given BID-WM [facility] Clopidogrel Bisulfate 75 mg 03/13/20 09:00 03/13/20 09:26 Plavix PO Not Given DAILY [facility] Ferrous Sulfate 325 mg 03/12/20 08:00 03/13/20 09:25 Feosol PO Not Given BID-WM [facility] Finasteride 5 mg 03/12/20 09:00 03/13/20 09:27 Proscar PO Not Given DAILY [facility] Heparin Sodium (Porcine) 5,000 units 03/12/20 21:00 03/13/20 09:41 Heparin SC 5,000 units BID [facility] Administration Hydralazine HCl 75 mg 03/11/20 21:00 03/12/20 12:13 Apresoline PO Not Given TID [facility] Hydralazine HCl 10 mg 03/12/20 10:08 03/13/20 02:31 Apresoline SLOW IVP 10 mg Q4H PRN Administration SBP GREATER THAN 160 Ceftriaxone Sodium 1 gm/ 100 mls @ 200 mls/hr 03/12/20 18:00 03/12/20 17:37 Sodium Chloride IVPB 100 mls 1800 [facility] Administration Isosorbide Mononitrate 60 mg 03/12/20 09:00 03/12/20 12:13 Imdur PO Not Given DAILY [facility] Labetalol HCl 10 mg 03/12/20 11:00 03/13/20 11:30 Normodyne SLOW IVP Not Given Q6H [facility] Labetalol HCl 10 mg 03/12/20 10:04 03/13/20 00:40 Normodyne SLOW IVP 10 mg Q1H PRN Administration Systolic BP > 180 Nifedipine 30 mg 03/12/20 09:00 03/12/20 12:13 Procardia Xl PO Not Given DAILY [facility] Nitroglycerin 0.5 inch 03/12/20 11:00 03/13/20 11:30 Nitro-Bid 2% Ointment TOP Not Given Q8H [facility] Senna/Docusate Sodium 2 tab 03/12/20 21:00 03/13/20 09:27 Senokot S PO Not Given BID [facility] Sodium Chloride 10 ml 03/12/20 10:04 03/12/20 22:05 Flush - Normal Saline IVF 10 ml PRN PRN Administration Saline Flush PHYSICAL EXAMINATION: GENERAL: NAD. CVS: Regular rate and rhythm. CHEST: Clear. ABDOMEN: Soft. NECK: Supple. NEUROLOGIC: Mental status, the patient is awake and oriented to person only. Does not follow commands or maintain eye contact. Cranial nerves, pupils round and reactive to light. Face symmetric. Tongue midline. Moves neck in both direction. Hearing seems to be intact. Motor, muscle tone and bulk are normal. Moving all 4 extremities equally and symmetrically. Cerebellar, did not cooperate with the testing. Sensory, withdraws to nailbed pressure bilaterally. Gait deferred due to patient's safety reason. DATA REVIEWED: I reviewed the labs which were significant for anemia 10.6/32.2 , and chronic kidney disease with a BUN of 54 and creatinine of 6.2. Head CT did not reveal any acute intracranial pathology. Lab results: WBC 11.8 thou/uL (4.8-10.8) H 03/11/20 14:41 Hgb 10.6 g/dL (14.0-18.0) L 03/11/20 14:41 Hct 32.2 % (42.0-52.0) L 03/11/20 14:41 MCV 125.0 fL (78.0-98.0) H 03/11/20 14:41 Plt Count 184 thou/uL (130-400) 03/11/20 14:41 Neutrophils % 86.1 % (42.0-75.0) H 03/11/20 14:41 Sodium 141 mmol/L (136-145) 03/11/20 14:41 Potassium 4.7 mmol/L (3.5-5.1) 03/11/20 14:41 Chloride 99 mmol/L (98-107) 03/11/20 14:41 Carbon Dioxide 17 mmol/L (23-31) L 03/11/20 14:41 BUN 54 mg/dL (8.4-25.7) H 03/11/20 14:41 Creatinine 6.23 mg/dL (0.7-1.3) H 03/11/20 14:41 Glucose 177 mg/dL (83-110) H 03/11/20 14:41 Lactic Acid 2.2 mmol/L (0.5-2.2) 03/11/20 14:41 Calcium 8.7 mg/dL (7.8-10.44) 03/11/20 14:41 Total Bilirubin 0.8 mg/dL (0.2-1.2) 03/11/20 14:41 AST 30 U/L (5-34) 03/11/20 14:41 ALT 13 U/L (8-55) 03/11/20 14:41 Alkaline Phosphatase 91 U/L (40-110) 03/11/20 14:41 Ammonia 32 umol/L (18-72) 03/11/20 14:41 Creatine Kinase 636 U/L (30-200) H 03/11/20 14:41 CK-MB (CK-2) 7.8 ng/mL (0-6.6) H* 03/11/20 14:41 Troponin I 0.151 ng/mL (< 0.028) H 03/11/20 14:41 Serum Total Protein 6.4 g/dL (5.8-8.1) 03/11/20 14:41 Albumin 3.3 g/dL (3.4-4.8) L 03/11/20 14:41 Urine Ketones Negative mg/dL (Negative) 03/11/20 13:59 Urine Blood 3+ (Negative) A 03/11/20 13:59 Urine Nitrite Negative (Negative) 03/11/20 13:59 Ur Leukocyte Esterase 500 Michelle/uL (Negative) A 03/11/20 13:59 Urine RBC 21-50 HPF (0-3) A 03/11/20 13:59 Urine WBC Greater than 50 HPF (0-3) A 03/11/20 13:59 Ur Squamous Epith Cells 0-3 HPF (0-3) 03/11/20 13:59 Urine Bacteria 2+ HPF (None Seen) A 03/11/20 13:59 Additional comment: Troponin I is in the indeterminate range of 0.151. Lactic acid is normal at 2.2. Ammonia is normal at 32. Creatinine kinase is elevated at 32. BNP is elevated at 16,729.8. Urinalysis is positive for leukocyte esterase and bacteria. Urine and plasma drug screens are essentially unremarkable. - EKG Interpretation EKG: EKG by my review shows normal sinus rhythm, no ST changes to suggest an acute coronary syndrome. - Radiology Interpretation Chest x-ray Status: image reviewed by me Additional Comment: CHEST ONE VIEW PORTABLE: History: Generalized weakness FINDINGS: There is cardiomegaly. There are increased linear and interstitial markings noted bilaterally, slight ly more prominent in the right midlung zone with some associated rotation. Evidence for right pleural effusion, small. Bony demineralization. No prior radiographs. IMPRESSION: Nonspecific linear and interstitial parenchymal changes bilaterally which may represent chronic hudson e or could represent some minimal interstitial edema or possibly mild atypical pneumonitis including viral pneumonia. Evidence for right pleural effusion, small. Cardiomegaly. Atherosclerosis of the aor ta. CT scan - head Status: image reviewed by me Additional Comment: BRAIN CT WITHOUT IV CONTRAST: History: Altered mental status. Weakness. Injury from a fall. FINDINGS: There is some atrophy and chronic white matter ischemic change. No focal mass or midline shift. No in tra or extraaxial hemorrhage. Bilateral parotid gland masses are noted measuring up to 2.9 cm on the left side with smaller masses involving the right parotid gland, but unchanged from a prior neck CT, 03-06-17. IMPRESSION: Atrophy and chronic white matter ischemic change. No mass or bleed. Extensive sinus mucosal changes including the maxillary and ethmoid sinuses, worse on the right side. Overall stable appearing bilateral parotid gland high density masses. ASSESSMENT AND PLAN: Mr. Den Mcintosh is consulted for altered mental status, multifactorial secondary to infectious or metabolic etiology; However, intracranial process cannot be completely ruled out. MRI of the brain to rule out acute intracranial process and EEG to rule out underlying seizure activity ordered. Neuro checks every 4 hours. Continue home medications. Continue medical management per Primary Team. Further recommendations depend on the results of the testing. We will continue to follow. Thank you for the consult. Job ID: [id number] [facility]
--- NOTE | 2020-03-13 15:29 | PDOC.HOSPP ---
- Subjective Encounter Date: 03/13/20 Encounter Time: 10:30 Subjective: Patient seen and examined for altered mentation. Undergoing hemodialysis. Remains confused. Failed swallow evaluation. - Objective Vital Signs & Weight: Vital Signs (12 hours) Temp Pulse Resp BP Pulse Ox 03/13/20 07:08 99.1 F 66 19 190/88 H 97 03/13/20 04:10 64 03/13/20 04:02 98.9 F 64 17 161/73 H 94 L Weight Admit Weight 147 lb 1.6 oz Weight 137 lb 2.04 oz I&O: 03/12/20 03/13/20 03/14/20 06:59 06:59 06:59 Intake Total 350 Balance 350 Result Diagrams: 03/14/20 04:12 03/14/20 04:12 Additional Labs: Accuchecks 03/13/20 03/13/20 03/13/20 11:00 05:48 03:15 POC Glucose 105 110 102 03/12/20 16:35 POC Glucose 113 H Radiology Reviewed by me: Yes (Repeat chest x-rayno pneumonia) EKG Reviewed by me: Yes (Sinus rhythm) Hospitalist ROS - Review of Systems ROS unobtainable: due to mental status - Medication Medications: Active Medications Generic Name Dose Route Start Last Admin Trade Name Freq PRN Reason Stop Dose Admin Aspirin 300 mg 03/13/20 09:00 03/13/20 09:42 Aspirin NE 300 mg DAILY [facility] Administration Aspirin 325 mg 03/13/20 09:00 03/13/20 09:25 Ecotrin PO Not Given DAILY [facility] Calcitriol 0.25 mcg 03/12/20 09:00 03/13/20 09:26 Rocaltrol PO Not Given DA[facility] Carvedilol 12.5 mg 03/12/20 08:00 03/12/20 12:13 Coreg PO Not Given BID-[facility] Clopidogrel Bisulfate 75 mg 03/13/20 09:00 03/13/20 09:26 Plavix PO Not Given DAILY [facility] Ferrous Sulfate 325 mg 03/12/20 08:00 03/13/20 09:25 Feosol PO Not Given B[facility] Finasteride 5 mg 03/12/20 09:00 03/13/20 09:27 Proscar PO Not Given DAILY [facility] Heparin Sodium (Porcine) 5,000 units 03/12/20 21:00 03/13/20 09:41 Heparin SC 5,000 units BID [facility] Administration Hydralazine HCl 75 mg 03/11/20 21:00 03/12/20 12:13 Apresoline PO Not Given TID [facility] Hydralazine HCl 10 mg 03/12/20 10:08 03/13/20 02:31 Apresoline SLOW IVP 10 mg Q4H PRN Administration SBP GREATER THAN 160 Ceftriaxone Sodium 1 gm/ 100 mls @ 200 mls/hr 03/12/20 18:00 03/12/20 17:37 Sodium Chloride IVPB 100 mls 1800 [facility] Administration Isosorbide Mononitrate 60 mg 03/12/20 09:00 03/12/20 12:13 Imdur PO Not Given DAILY [facility] Labetalol HCl 10 mg 03/12/20 11:00 03/13/20 11:30 Normodyne SLOW IVP Not Given Q6H [facility] Labetalol HCl 10 mg 03/12/20 10:04 03/13/20 00:40 Normodyne SLOW IVP 10 mg Q1H PRN Administration Systolic BP > 180 Nifedipine 30 mg 03/12/20 09:00 03/12/20 12:13 Procardia Xl PO Not Given DAILY [facility] Nitroglycerin 0.5 inch 03/12/20 11:00 03/13/20 11:30 Nitro-Bid 2% Ointment TOP Not Given Q8H [facility] Senna/Docusate Sodium 2 tab 03/12/20 21:00 03/13/20 09:27 Senokot S PO Not Given BID [facility] Sodium Chloride 10 ml 03/12/20 10:04 03/12/20 22:05 Flush - Normal Saline IVF 10 ml PRN PRN Administration Saline Flush - Exam General Appearance: NAD General - other findings: Confused Neck: supple, no JVD Heart: RRR, no gallops, no rubs, normal peripheral pulses Respiratory: no wheezes, no rales, no ronchi, normal chest expansion Gastrointestinal: soft, non-tender, normal bowel sounds, no guarding, no rigidity Extremities: no cyanosis, no clubbing Psychiatric: not oriented, somnolent Hosp A/P - Plan DVT proph w/heparin, DVT proph w/SCDs Toxic metabolic encephalopathy probably due to recent use of baclofen versus UTI versus pneumonia ?Aspiration 1 of 2 blood culture positive for coagulase-negative staph - suspected contaminant Rhabdomyolysis Nonsustained ventricular tachycardia Coronary artery disease status post stent placement Cardiomyopathy with ejection fraction less than 35 percent End-stage renal disease on hemodialysis Diabetes mellitus type II Hypertension Metabolic acidosis 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 Obtain records from Dr. WEST office. MRI brain negative. Repeat chest x-ray reviewed. CK improving. Await cardio, neuro and infectious disease input. Dialysis per nephrology. Continue IV medications until patient able to tolerate oral medications. A.m. labs. We will try to place NG tube today. Continue sliding scale. Continue other medications as above. 03/12 Continue ceftriaxone, add vancomycin, monitor vancomycin level, continue aspirin , await urine cultures, dialysis per nephrology, speech therapy evaluation start IV labetalol due to inability to take po meds, recheck chest x-ray in a.m. , consult cardiology, add echocardiogram, labs in a.m Plan discussed with patient's son over the phone.Consider brain MRI if mentation does not improve. Please note that patient has 2 different medical record number. For previous records please refer to
--- NOTE | 2020-03-13 16:07 | CON ---
DATE OF CONSULTATION: 03/13/2020 REASON FOR CONSULTATION: Delirium, possible sepsis. HISTORY OF PRESENT ILLNESS: A 79-year-old who has a history of coronary artery disease, type 2 diabetes, and end-stage renal disease on hemodialysis through an AV fistula in the right upper extremity, who was found with altered mental status by family on the floor with stool covering his skin as well as dried blood. The day before, apparently, he was having some weakness. On arrival, the patient was lethargic, he was oriented to self only, his Missy Coma Score was 12. Initial findings included BP 190/70, pulse 77, respirations 20, and temperature 98.3. On exam, the patient appeared in mild distress, pupils were reactive. There was one isolated cervical lymph node, small. Lungs sounds were normal, diminished breath sounds at the bases. Heart exam showed normal findings. Abdomen was not tender. Sodium 141, creatinine 6.23, and liver profile normal. CK was 636 and troponin 0.151. Albumin 3.3. Urinalysis greater than 50 wbc's. Toxicology was negative. COVID was not detected. He had a hepatitis B surface antigen, which was sent for reflex confirmation. Currently, Mr. Mcintosh is being dialyzed. He did not establish eye contact and he barely tried to reply to some questions by nodding his head, but he could not communicate verbally, so review of systems was not feasible. PAST MEDICAL HISTORY: Includes: 1. Ischemic cardiomyopathy. 2. Type 2 diabetes. 3. End-stage renal disease, on hemodialysis with an AV fistula. 4. BPH. 5. Hypertension. ALLERGIES: NONE. CURRENT MEDICATIONS: 1. Ecotrin. 2. Tums. 3. Rocaltrol. 4. Plavix. 5. Heparin. 6. Apresoline. 7. Insulin. 8. Normodyne. 9. Senokot. 10. Vancomycin. 11. Sliding scale. 12. Ceftriaxone. SOCIAL HISTORY: We do not have a lot of details of his social history. PHYSICAL EXAMINATION: VITAL SIGNS: After admission, his temperature max was 99.1, BP 190/88, pulse 66 , respirations 19, and O2 saturation 97 on room air. SKIN: There is a laceration in the dorsal aspect of the left hand and accessed right AV fistula. He is voiding in the diaper. There are multiple areas of nonpalpable purpura in the anterior chest area. There is no lymphadenopathy noted. HEENT: Ocular movements conjugate. Pupils are equal. Oral cavity dry with no [place] teeth remaining. NECK: Supple. No jugular vein distention. LUNGS: Symmetric air entry. Faint crackles in the right base. HEART: S1 and S2. Regular rate with a soft aortic murmur. No S3 or S4. ABDOMEN: Soft, flat, not distended. No ascites. No organomegaly. No evidence of bladder distention. EXTREMITIES: Pulses are diminished in dorsalis pedis. Plantar responses are flexor. Cap refill is normal. I could not test his motility, but he seems to have good muscle tone in all 4 extremities. NEUROLOGIC: He did not answer any questions at the moment. He did not establish eye contact. LABORATORY DATA: Latest labs: White cell count 12,000, hemoglobin 10, and platelets 154 with 86% neutrophils. Sodium 142, creatinine 4.42, bilirubin 0.4 , AST 120, ALT 156, and albumin 3.0. Vitamin B12 of 1800. CK is down to 480. Microbiology with coagulase-negative Staph, 1/2 sets of blood cultures. Urine culture, no growth at 48 hours. Chest x-ray with small right pleural effusion, mild cardiomegaly, prominent interstitial markings. A brain CT, atrophy, chronic white matter ischemic change, sinus mucosal changes in the maxillary and ethmoid sinuses, worse on the right side. ASSESSMENT: 1. Coronary artery disease. 2. End-stage renal disease, on hemodialysis. 3. Type 2 diabetes. 4. Delirium in a patient at least by himself and was feeling weak the day before admission, found by family on the floor of his residence. DISCUSSION: Differential diagnosis includes bacteremia from various sites including the possibility of urinary tract versus a primary ORE MIXER event; for example, CVA, that has not yet been identified. Encephalitis and meningitis are within the differential diagnosis as well. Pulmonary inflammatory process less likely. Intraabdominal inflammatory process is not ruled out. Toxic metabolic encephalopathy is more likely than a primary ORE MIXER inflammatory process or CVA. He is currently on broad-spectrum coverage and we will monitor blood cultures. See how he responds after admission. If his mental state does not improve, may need a CSF evaluation. May need an MRI of his brain or CT abdomen and pelvis with contrast depending on clinical progress. Job ID: [id number] [facility]
--- NOTE | 2020-03-13 16:21 | MRI ---
EXAM: MRI Brain WO Con PROVIDED CLINICAL HISTORY: Seizure and altered mental status. COMPARISON: CT head on 03/11/2020 FINDINGS: There is significant patient motion on all pulse sequences which does degrade image quality. There is increased FLAIR and T2-weighted signal intensity seen in the periventricular white matter wh ich is nonspecific but likely reflective of mild chronic small vessel ischemic changes. There is no restricted diffusion to suggest an acute infarction. There is significant motion artifact, but the hippocampal formations appear overall symmetric. No def initive abnormal signal intensity seen in this region; although, this would be difficult to entirely exclude given patient motion. Volume loss is present. Ventricular system is normal in size, shape, and position for the degree of s ulcal atrophy. The septum pellucidum and third ventricle are in the midline. Incidental note is made of a partially empty sella turcica. Flow voids at the base the brain are difficult to evaluate due to motion artifact. Mucosal thickening is seen in bilateral ethmoidal air cells as well as each maxillary antrum. Small a mount of fluid is seen in the posterior nasopharynx. There is low T2-weighted signal intensity seen in the region left parotid gland on FLAIR image. Axial imaging was not obtained through this region. CT scan examination demonstrated high density lesions within the left parotid gland, and these high-density lesions were seen on prior neck CT exam on 03/06/2017. [place] lenses are absent. IMPRESSION: 1. Limited exam due to significant patient motion, but no acute intracranial abnormality is demonstra danilo. 2. Chronic small vessel ischemic changes and cerebral volume loss. 3. Mild sinus disease. 4. Lesions left parotid gland which are not well assessed or evaluated on this exam. These lesions we re seen on recent head CT as well as prior neck CT on 03/06/2017.
--- NOTE | 2020-03-13 17:41 | RAD ---
EXAM: XR Abdomen 1 View/KUB PROVIDED CLINICAL HISTORY: Evaluate nasogastric tube placement. COMPARISON: None FINDINGS: Nasogastric tube is noted in place which overlies the mediastinum. However, the nasogastric tube is c oiled overlying the lower mediastinum with the tip directed in a cephalad direction to overlie the midthoracic spine. Nasogastric tube does not course into the upper abdomen. Pleural and parenchymal c hanges are partially visualized at the right lung base which may represent right pleural effusion and atelectasis. Cardiac silhouette does appear enlarged. Visualized upper abdomen demonstrates a non specific bowel gas pattern. IMPRESSION: Nasogastric tube overlies the lower mediastinum and is coiled overlying the expected location of the esophagus. Tip overlies the level of the midthoracic spine.
[2020-03-13] MEDS: cefTRIAXone\\ROCEPHIN 1 GM in Sodium Chloride 0.9% 100 ML IVPB SCH (18:09)
[2020-03-13] MEDS ORDERED: Dextrose 5 %-0.45 % NaCl 1,000 ML IV SCH (18:30)
--- NOTE | 2020-03-13 20:14 | CON ---
DATE OF CONSULTATION: 03/13/2020 PRIMARY REHABILITATION DIRECTOR: Dr. Camilo Salgado. REASON FOR CONSULTATION: Depressed left ventricular function in the setting of altered mental status and positive blood cultures. HISTORY OF PRESENT ILLNESS: Mr. Mcintosh is a 79-year-old gentleman, history of end-stage renal disease, on dialysis. He was brought to the hospital with altered mental status. This is being evaluated. The patient remains altered. The patient is unable to give any history now due to his mental status. PAST HISTORY: Coronary artery disease, details not yet known to us; "weak heart muscle" according to one of the family members. PAST SURGICAL HISTORY: Cardiac stents according to one of the family members. SOCIAL HISTORY: Positive for just smoking. MEDICATIONS: Prior to admission; 1. Aspirin. 2. Carvedilol. 3. Lasix. 4. Hydralazine. 5. Isosorbide. 6. Procardia XL. REVIEW OF SYSTEMS: Not obtainable. PHYSICAL EXAMINATION: GENERAL: This is an elderly gentleman. VITAL SIGNS: Blood pressure 190/87, pulse 66. He is not responsive. LUNGS: Clear. CARDIAC: Normal S1, normal S2. ABDOMEN: Soft and nontender. EXTREMITIES: Warm and dry. No clubbing. No cyanosis. There is no edema. LABORATORY DATA: Creatinine is elevated at 4.4, earlier 6.23. AST 120, ALT 156. Echocardiogram, ejection fraction 30% to 35% technically, moderate to severe concentric left ventricular hypertrophy, pulmonary hypertension with pulmonary artery pressure estimates 70 mmHg systolic. CONCLUSION: 1. Altered mental status, being evaluated. 2. Positive blood cultures, 1 out of 2 for Staph. 3. Hypertension. PLAN: 1. Evaluation of mental status is being undertaken. 2. We have requested previous records to see what his previous left ventricular function is. 3. Unable to take oral medicines. May need to have a PEG tube or some other mechanism giving his medicines. Job ID: [id number]
[2020-03-13 20:37] LABS: Hep B Surface AG-Rflx Sendout Negative (Negative)
[2020-03-14 05:16] LABS: Hemoglobin 12.4 g/dL (14.0-18.0); Lymphocytes 8 % (21-51); MDiff Complete? YES; Macrocytosis MODERATE=16-30 cells (100X) (0-5/hpf); Mean Corpuscular HGB CONC 32.2 g/dL (32.0-36.0); Mean Corpuscular Hemoglobin 39.8 pg (27.0-31.0); Mean Platelet Volume 8.7 fL (7.4-10.4); Monocytes 6 % (0-10); Neutrophil 86 % (42-75); Nucleated RBC 1 % (0); Platelet Count 134 thou/uL (130-400); White Blood Cell (WBC) Count 13.9 thou/uL (4.8-10.8)
[2020-03-14 05:29] LABS: ALT (SGPT) 128 U/L (8-55); AST (SGOT) 75 U/L (5-34); Albumin 3.2 g/dL (3.4-4.8); Alkaline Phosphatase 100 U/L (40-110); Anion Gap 22 mmol/L (10-20); BUN (Urea Nitrogen) 26 mg/dL (8.4-25.7); Bilirubin, Total 0.6 mg/dL (0.2-1.2); Calc. Creatinine Clearance 17 mL/min (70-130); Calcium 8.5 mg/dL (7.8-10.44); Carbon Dioxide 20 mmol/L (23-31); Chloride 100 mmol/L (98-107); Estimated GFR-MDRD 19; Globulin 3.1 g/dL (2.4-3.5); Glucose 135 mg/dL (83-110); Potassium 3.7 mmol/L (3.5-5.1); Protein, Total 6.3 g/dL (5.8-8.1); Sodium 138 mmol/L (136-145)
[2020-03-14] MEDS: Nitroglycerin 2% Ointment 1 INCH/1 GM Packet TOP SCH ×2 (06:04→11:53)
[2020-03-14] MEDS: Labetalol HCl 100 MG/20 ML VIAL SLOW IVP SCH ×2 (06:04→11:49)
[2020-03-14] MEDS ORDERED: Dextrose 5 %-0.45 % NaCl 1,000 ML IV SCH (07:21)
[2020-03-14] MEDS ORDERED: hydrALAZINE 25 MG TAB PO SCH (08:08)
--- NOTE | 2020-03-14 08:32 | PRG ---
DATE OF SERVICE: 03/14/2020 SUBJECTIVE: Mr. Mcintosh is a 79-year-old male with ESRD and was admitted for mental status change. Mentation has slowly been improving. Imaging of the of the brain with CT scan showed no acute intracranial abnormality. This morning, he is mentating better. Denies any chest pain or shortness of breath. He did undergo hemodialysis yesterday. OBJECTIVE: VITAL SIGNS: Blood pressure is 200/91, heart rate 60, respiratory rate 19, temperature 98.1, O2 saturation 94%. GENERAL: The patient is awake, alert, supine, comfortable, not in distress. SKIN: Adequate turgor. HEENT: Pinkish conjunctivae. Anicteric sclerae. NECK: No neck mass. No carotid bruits. No JVD. CHEST: No deformities. LUNGS: Clear breath sounds. No wheezing. No crackles. HEART: Normal sinus rhythm. No murmur. No gallops. No rubs. ABDOMEN: Globular, soft nontender, no masses. EXTREMITIES: No edema, no deformities. MEDICATIONS: Of March 14, 2020, was reviewed. LABORATORY DATA: Of March 14, 2020, white count 13.9, hemoglobin 12.4. Sodium 138, potassium 3.7, chloride 100, carbon dioxide 20, BUN 26, creatinine 3.26. AST 75, ALT 128, albumin 3.2. ASSESSMENT/PLAN: 1. Labile hypertension. We will be adjusting BP medications with this patient. Please note, patient is on carvedilol at 6.25 mg p.o. b.i.d. In addition, we will increase hydralazine to 100 mg p.o. t.i.d. 2. End-stage renal disease, stable. We will continue current hemodialysis regimen. 3. Mental status change, slowly improving-consider metabolic encephalopathy. Job ID: [id number]
[2020-03-14] MEDS ORDERED: Famotidine/PF 20 mg/2ml Vial SLOW IVP SCH (09:00)
[2020-03-14] MEDS ORDERED: Carvedilol 6.25 MG TAB PO SCH (09:00)
[2020-03-14] MEDS: NIFEdipine XL 30 MG TAB PO SCH (09:50)
[2020-03-14] MEDS: Ferrous Sulfate 325 MG TAB PO SCH ×2 (09:50→16:12)
[2020-03-14] MEDS: Calcitriol 0.25 MCG CAP PO SCH (09:50)
[2020-03-14] MEDS: Clopidogrel Bisulfate 75 MG TAB PO SCH (09:50)
[2020-03-14] MEDS: Finasteride 5 MG TAB PO SCH (09:51)
[2020-03-14] MEDS: Senokot S 8.6-50 MG TAB PO SCH ×2 (09:51→21:22)
[2020-03-14] MEDS: Famotidine 20 MG TAB PO SCH (09:52)
[2020-03-14] MEDS: hydrALAZINE 20 MG/ML VIAL SLOW IVP PRN (09:52)
[2020-03-14] MEDS: Aspirin 300 MG Suppository PR SCH (09:52)
[2020-03-14] MEDS: Heparin 5,000 UNITS/ML VIAL SC SCH ×2 (09:55→21:22)
--- NOTE | 2020-03-14 10:35 | PRG ---
DATE OF SERVICE: 03/14/2020 SUBJECTIVE: Mr. Mcintosh is much more awake and alert today. He has no complaints. Does not report any chest pain or pressure. No shortness of breath. OBJECTIVE: VITAL SIGNS: Blood pressure is high 200/90, pulse 60. He is just not going to try to get his oral medications. LUNGS: Clear. CARDIAC: Normal S1, normal S2. ASSESSMENT: 1. Congestive heart failure, systolic, probably chronic. Still awaiting records. 2. End-stage renal disease. 3. Confusion, disorientation, improved. PLAN: 1. We will try to go back on his oral medicines. 2. Await records, which have been requested. Job ID: [id number]
--- NOTE | 2020-03-14 13:08 | PDOC.HOSPP ---
- Subjective Encounter Date: 03/14/20 Subjective: NEUROLOGY PROGRESS NOTE Patient alert and oriented to name only. MRI brain and EEG negative. - Objective Vital Signs & Weight: Vital Signs (12 hours) Temp Pulse Pulse Pulse Resp BP BP 03/14/20 11:46 56 L 56 L 79/40 L 03/14/20 11:40 03/14/20 11:23 96.1 F L 57 L 03/14/20 07:42 98.1 F 60 19 03/14/20 06:04 66 187/78 H 03/14/20 04:00 96.7 F L 60 20 BP BP Pulse Ox 03/14/20 11:46 92/47 L 03/14/20 11:40 92 L 03/14/20 11:23 93/45 L 03/14/20 07:42 200/91 H 94 L 03/14/20 06:04 03/14/20 04:00 187/78 H 94 L Weight Admit Weight 147 lb 1.6 oz Weight 130 lb 15.273 oz I&O: 03/13/20 03/14/20 03/15/20 06:59 06:59 06:59 Intake Total 350 542 Output Total 3600 Balance 350 -3058 Result Diagrams: 03/14/20 04:12 03/14/20 04:12 Additional Labs: Accuchecks 03/14/20 03/14/20 03/13/20 07:31 06:16 23:34 POC Glucose 160 H 317 H 128 H 03/13/20 17:01 POC Glucose 96 Radiology Reviewed by me: Yes EKG Reviewed by me: Yes Hospitalist ROS - Review of Systems ROS unobtainable: due to mental status - Medication Medications: Active Medications Generic Name Dose Route Start Last Admin Trade Name Mary PRN Reason Stop Dose Admin Calcitriol 0.25 mcg 03/12/20 09:00 03/14/20 09:50 Rocaltrol PO 0.25 mcg DAILY [facility]DA Administration Clopidogrel Bisulfate 75 mg 03/13/20 09:00 03/14/20 09:50 Plavix PO 75 mg DAILY [facility] Administration Famotidine 20 mg 03/14/20 09:00 03/14/20 09:52 Pepcid PO 20 mg DAILY [facility] Administration Ferrous Sulfate 325 mg 03/12/20 08:00 03/14/20 09:50 Feosol PO 325 mg BID-[facility] LINDA Administration Finasteride 5 mg 03/12/20 09:00 03/14/20 09:51 Proscar PO 5 mg DAILY [facility] Administration Heparin Sodium (Porcine) 5,000 units 03/12/20 21:00 03/14/20 09:55 Heparin SC 5,000 units BID [facility] Administration Hydralazine HCl 10 mg 03/12/20 10:08 03/14/20 09:52 Apresoline SLOW IVP 10 mg Q4H PRN Administration SBP GREATER THAN 160 Ceftriaxone Sodium 1 gm/ 100 mls @ 200 mls/hr 03/12/20 18:00 03/13/20 18:09 Sodium Chloride IVPB 100 mls 1800 LINDA Administration Dextrose/Sodium Chloride 1,000 mls @ 30 mls/hr 03/14/20 07:21 03/14/20 10:13 D5 1/2 Ns IV 1,000 mls .Q24H LINDA Administration Isosorbide Mononitrate 60 mg 03/12/20 09:00 03/14/20 09:51 Imdur PO 60 mg DAILY [facility] Administration Labetalol HCl 10 mg 03/12/20 10:04 03/13/20 21:23 Normodyne SLOW IVP 10 mg Q1H PRN Administration Systolic BP > 180 Nifedipine 30 mg 03/12/20 09:00 03/14/20 09:50 Procardia Xl PO 30 mg DAILY [facility]DA Administration Nitroglycerin 0.5 inch 03/12/20 11:00 03/14/20 11:53 Nitro-Bid 2% Ointment TOP Not Given Q8H LINDA Senna/Docusate Sodium 2 tab 03/12/20 21:00 03/14/20 09:51 Senokot S PO 2 tab BID LINDA Administration Sodium Chloride 10 ml 03/12/20 10:04 03/12/20 22:05 Flush - Normal Saline IVF 10 ml PRN PRN Administration Saline Flush - Exam General Appearance: awake alert Eye: PERRL ENT: normocephalic atraumatic Neck: supple Heart: RRR Respiratory: CTAB Gastrointestinal: soft Extremities: no cyanosis Skin: normal turgor Neurological: no new deficit Psychiatric: normal affect, A&O x 3 Hosp A/P (1) AMS (altered mental status) Code(s): R41.82 - ALTERED MENTAL STATUS, UNSPECIFIED Status: Acute (2) Hypertension Code(s): I10 - ESSENTIAL (PRIMARY) HYPERTENSION Status: Acute (3) Dyslipidemia Code(s): E78.5 - HYPERLIPIDEMIA, UNSPECIFIED Status: Acute (4) CAD (coronary artery disease) Code(s): I25.10 - ATHSCL HEART DISEASE OF [place] CORONARY ARTERY W/O ANG PCTRS Status: Acute (5) Metabolic encephalopathy Code(s): G93.41 - METABOLIC ENCEPHALOPATHY Status: Acute (6) Aspiration pneumonia Code(s): J69.0 - PNEUMONITIS DUE TO INHALATION OF FOOD AND VOMIT Status: Acute - Plan PT/OT, speech therapy, DVT proph w/SCDs 79 year old consulted for altered mental status. Aletered mental status most likely multifactorial due to metabolic and infectious etiology. Intracranial process ruled out by negative MRI Brain and EEG. EEG reviewed and was negative for seizure activity. MRI brain reviewed and was negative for seizure activity. 2 D echo completed . Results noted. LVEF 30-35% Neurochecks every 4 hours. Continue aspirin and statin for secondary stroke prevention. PT/OT/Speech Continue home medications. Continue medical management per primary team and nephrology..
[2020-03-14] MEDS: cefTRIAXone\\ROCEPHIN 1 GM in Sodium Chloride 0.9% 100 ML IVPB SCH (16:11)
[2020-03-14] MEDS: Acetaminophen 325 MG TAB PO PRN (16:12)
[2020-03-14] MEDS: Carvedilol 25 MG TAB PO SCH (16:30)
--- NOTE | 2020-03-14 16:53 | PDOC.HOSPP ---
- Subjective Encounter Date: 03/14/20 Encounter Time: 14:00 Subjective: Patient seen and examined for altered mentation. Mentation gradually improving. No new focal deficit. Passed swallow evaluation. - Objective Vital Signs & Weight: Vital Signs (12 hours) Temp Pulse Pulse Pulse Resp BP BP 03/14/20 15:39 97.6 F 55 L 17 03/14/20 13:59 55 L 55 L 96/48 L 03/14/20 11:46 56 L 56 L 79/40 L 03/14/20 11:40 03/14/20 11:23 96.1 F L 57 L 03/14/20 07:42 98.1 F 60 19 03/14/20 06:04 66 187/78 H BP BP Pulse Ox 03/14/20 15:39 100/51 L 97 03/14/20 13:59 90/52 L 03/14/20 11:46 92/47 L 03/14/20 11:40 92 L 03/14/20 11:23 93/45 L 03/14/20 07:42 200/91 H 94 L 03/14/20 06:04 Weight Admit Weight 147 lb 1.6 oz Weight 130 lb 15.273 oz I&O: 03/13/20 03/14/20 03/15/20 06:59 06:59 06:59 Intake Total 350 542 Output Total 3600 Balance 350 -3058 Result Diagrams: 03/14/20 04:12 03/14/20 04:12 Additional Labs: Accuchecks 03/14/20 03/14/20 03/14/20 11:45 07:31 06:16 POC Glucose 163 H 160 H 317 H 03/13/20 03/13/20 23:34 17:01 POC Glucose 128 H 96 Radiology Reviewed by me: Yes (MRI brain no CVA) EKG Reviewed by me: Yes (Telemetry sinus rhythm) Hospitalist ROS - Review of Systems Respiratory: denies: cough, dry, shortness of breath, hemoptysis, SOB with excertion, pleuritic pain, sputum, wheezing, other Cardiovascular: denies: chest pain, palpitations, orthopnea, paroxysmal noc. dyspnea, edema, light headedness, other - Medication Medications: Active Medications Generic Name Dose Route Start Last Admin Trade Name Freq PRN Reason Stop Dose Admin Acetaminophen 650 mg 03/11/20 17:26 03/14/20 16:12 Tylenol PO 650 mg Q4H PRN Administration Headache/Fever/Mild Pain (1-3) Calcitriol 0.25 mcg 03/12/20 09:00 03/14/20 09:50 Rocaltrol PO 0.25 mcg DAILY [facility] Administration Carvedilol 12.5 mg 03/14/20 17:00 03/14/20 16:30 Coreg PO Not Given BID-[facility] Clopidogrel Bisulfate 75 mg 03/13/20 09:00 03/14/20 09:50 Plavix PO 75 mg DAILY [facility] Administration Famotidine 20 mg 03/14/20 09:00 03/14/20 09:52 Pepcid PO 20 mg DAILY [facility] Administration Ferrous Sulfate 325 mg 03/12/20 08:00 03/14/20 16:12 Feosol PO 325 mg BID-[facility] Administration Finasteride 5 mg 03/12/20 09:00 03/14/20 09:51 Proscar PO 5 mg DAILY [facility] Administration Heparin Sodium (Porcine) 5,000 units 03/12/20 21:00 03/14/20 09:55 Heparin SC 5,000 units BID [facility] Administration Hydralazine HCl 10 mg 03/12/20 10:08 03/14/20 09:52 Apresoline SLOW IVP 10 mg Q4H PRN Administration SBP GREATER THAN 160 Ceftriaxone Sodium 1 gm/ 100 mls @ 200 mls/hr 03/12/20 18:00 03/14/20 16:11 Sodium Chloride IVPB 100 mls 1800 [facility] Administration Isosorbide Mononitrate 60 mg 03/12/20 09:00 03/14/20 09:51 Imdur PO 60 mg DAILY [facility] Administration Labetalol HCl 10 mg 03/12/20 10:04 03/13/20 21:23 Normodyne SLOW IVP 10 mg Q1H PRN Administration Systolic BP > 180 Nifedipine 30 mg 03/12/20 09:00 03/14/20 09:50 Procardia Xl PO 30 mg DAILY [facility] Administration Senna/Docusate Sodium 2 tab 03/12/20 21:00 03/14/20 09:51 Senokot S PO 2 tab BID [facility] Administration Sodium Chloride 10 ml 03/12/20 10:04 03/12/20 22:05 Flush - Normal Saline IVF 10 ml PRN PRN Administration Saline Flush - Exam General Appearance: NAD Heart: RRR, no gallops Respiratory: no wheezes, no rales Gastrointestinal: soft, non-distended, no guarding, no rigidity Extremities: no cyanosis Neurological: no new deficit Psychiatric: normal affect, A&O x 3, somnolent Hosp A/P - Plan Toxic metabolic encephalopathy probably due to recent use of baclofen versus infectious etiology 1 of 2 blood culture positive for coagulase-negative staph - suspected contaminant Rhabdomyolysis Nonsustained ventricular tachycardia Coronary artery disease status post stent placement Chronic systolic heart failure End-stage renal disease on hemodialysis Diabetes mellitus type II Hypertension Metabolic acidosis 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 Discontinue IV hypertensive medications. EEG negative. Discontinue IV fluids. Continue sliding scale. Continue carvedilol. Patient is on aspirin/Plavix at home which will be restarted. Dialysis per nephrology. halfway facility placement. Plan discussed with the son. 03/13 Continue empiric antibiotic, continue rectal aspirin, unable to tolerate oral medication including Plavix. Obtain records from Dr. WEST office. MRI brain negative. Repeat chest x-ray reviewed. CK improving. Await cardio, neuro and infectious disease input. Dialysis per nephrology. Continue IV medications until patient able to tolerate oral medications. A.m. labs. We will try to place NG tube today. Continue sliding scale. Continue other medications as above. 03/12 Continue ceftriaxone, add vancomycin, monitor vancomycin level, continue aspirin , await urine cultures, dialysis per nephrology, speech therapy evaluation start IV labetalol due to inability to take po meds, recheck chest x-ray in a.m. , consult cardiology, add echocardiogram, labs in a.m Plan discussed with patient's son over the phone.Consider brain MRI if mentation does not improve. Please note that patient has 2 different medical record number. For previous records please refer to
[2020-03-14] MEDS ORDERED: Carvedilol 25 MG TAB PO SCH (17:00)
--- NOTE | 2020-03-14 17:57 | PRG ---
DATE OF SERVICE: SUBJECTIVE: Arnaldo is more oriented. He is able to have a conversation and interact with us. He still has a little bit of difficulty with recalling events and he was able to establish eye contact so that there has been marked improvement in his ability to interactive when compared with yesterday. He denies any headaches. He has a little bit of neck pain in the left posterior aspect. No respiratory symptoms. He denied abdominal pain. He does have what he describes as a little bit of suprapubic tenderness. He was having a hip pain on the left side, which has been described to sciatica elsewhere that has improved reportedly. OBJECTIVE: VITAL SIGNS: His temperature max 99.1, is now 97.6, BP 100/51, pulse 55, respirations 17, and O2 saturation 97 on 2 L, a little bit on the hypotensive side. GENERAL: Appears chronically ill. A bit of an ashen color of his skin. HEENT: His ocular movements are conjugate. Oral cavity is dry. NECK: Supple. LUNGS: Symmetric air entry. Faint crackles on the right side. HEART: S1, S2. Diminished heart sounds. ABDOMEN: Flat, soft. Not distended or tender. EXTREMITIES: Quite a bit of muscle wasting particularly in the lower extremities. He is able to move extremities but is diffusely weak. LABORATORY DATA: White cell count is at 13.9, hemoglobin 12.4, platelets 134 with 86% neutrophils and creatinine is 3.26. AST 75, ALT 128, albumin 3.2. Urinalysis greater than. His hepatitis B surface antigen was positive in the reflex but was negative though, so it was not confirmed. ASSESSMENT: Coronary artery disease, ischemic cardiomyopathy, end-stage renal disease, on hemodialysis, type 2 diabetes, delirium, abnormal liver function tests. DISCUSSION: Delirium has improved and has not resolved and it is not clear the sequence of events if he had an arrhythmia and fell down, or another event. It does not appear that he had a [employer] event in view of the results of the brain MRI. It may be multifactorial. We have to scan his abdomen and pelvis to complete the workup with contrast. We will do it tomorrow. He will have dialysis tomorrow. Job ID: [id number] [facility]
--- NOTE | 2020-03-15 08:54 | CT ---
CT OF THE ABDOMEN AND PELVIS WITH IV CONTRAST: INDICATION: A 79-year-old male with abdominal tenderness, diabetes, hypertension, and gastrointestinal disease. COMPARISON: Noncontrast CT of the abdomen and pelvis dated 04/07/2018. FINDINGS: There is a moderate right and small left pleural effusion. There is prominent opacity within the rig ht lower lobe with some scattered air bronchograms which may reflect sequelae of compressive atelecta sis; however, pneumonia is not excluded. There are also some areas of consolidation also present wit hin the right middle lobe, again possibly reflective of atelectasis or pneumonia. There is mild left basilar atelectasis present. There is cardiomegaly. There are prominent vascular calcifications of the coronary and thoracic aorta. There is some layered density within the gallbladder suspicious for small stones or sludge. No focal hepatic lesion is evident. Calcified granuloma are seen within the spleen. The pancreas and adrena l glands appear within normal limits. There are atrophic-appearing kidneys bilaterally with prominen t renovascular calcifications. There is a cyst involving the inferior pole of the right kidney which is unchanged in size. This measures 2.4 cm. There are prominent vascular calcifications involving the abdominopelvic vasculature. There is colonic diverticulosis without overt evidence of active diverticulitis. There is a prominen t amount of retained stool. The appendix is not definitely demonstrated. There is moderate anasarca. There is diffuse osteopenia. There is scattered degenerative and osteoarthritic change. There are p ars defects at L4 with grade I anterolisthesis. No definite acute osseous abnormality is evident. IMPRESSION: 1. Findings suspicious for congestive heart failure. 2. Consolidation of the right lung base may reflect pneumonia or compressive atelectasis from the pa tient's moderate-sized right pleural effusion. There is mild anasarca. 3. Right renal cyst. 4. Gallbladder sludge. 5. Findings of prior granulomatous disease. 6. Chronic findings as above. POS: [facility]
--- NOTE | 2020-03-15 09:11 | PRG ---
DATE OF SERVICE: 03/15/2020 SUBJECTIVE: Mr. Mcintosh is a 79-year-old white male with ESRD and was admitted for mental status change. He had a CAT scan of the head, which showed no acute intracranial abnormality. We are following up this patient for his ESRD as well as maintenance hemodialysis. I have scheduled him for his regular dialysis. He also attempted to max out fluid removal due to his underlying CHF. No acute events noted. The patient is still having intermittent confusion. Please note that the brain MRI was done, which showed chronic small-vessel ischemic disease. PHYSICAL EXAMINATION: VITAL SIGNS: Blood pressure is 165/74, heart rate 59, respiratory rate 16, temperature 98, O2 saturation 95% on room air. GENERAL: Awake, comfortable. Able to respond to verbal stimuli. Not in distress. SKIN: Adequate turgor. HEENT: Pinkish conjunctivae. Anicteric sclerae. No neck mass. No carotid bruits. No JVD. CHEST: No deformities. LUNGS: Clear breath sounds. HEART: Normal sinus rhythm. No murmur. No gallops. No rubs. ABDOMEN: Globular, soft, nontender. No masses. EXTREMITIES: No edema. MEDICATIONS: Medications of March 15, 2020, was reviewed. LABORATORY DATA: Laboratories of March 14, 2020 showed a sodium 138, potassium 3.7, chloride 100, carbon dioxide 20, BUN 26, creatinine 3.26. AST 75, ALT 128. White count 13.9, hemoglobin 12.4. ASSESSMENT AND PLAN: 1. Mental status change-consideration for metabolic encephalopathy remains. He also had an ammonia level done on March 11, 2020, which was normal. 2. Confusion-consideration for possible metabolic encephalopathy. Neurology currently following up the patient. Please note, the MRI showed no acute intracranial abnormality. EEG has been ordered by the neurologist. 3. End-stage renal disease, stable. We will continue current Friday, Friday, and Friday hemodialysis regimen. Again max out fluid removal as tolerated by the patient. 4. Congestive heart failure, clinically improving, maxing out fluid removal with dialysis. Job ID: [id number]
--- NOTE | 2020-03-15 10:10 | EEG ---
DATE OF SERVICE: 03/14/2020 ATTENDING PHYSICIAN: Marika Lee MD. This EEG was performed using 24-channel [employer] video digital EEG machine with 24- disk electrodes. This was an extended 2 hours 6 minutes of inpatient video EEG recording. BACKGROUND: The posterior background rhythm was not observed. HYPERVENTILATION: Not performed. PHOTIC STIMULATION: No significant response seen in the photic stimulation. SLEEP: Drowsiness and sleep are observed. EEG DIAGNOSES: 1. Generalized irregular at times sharply contoured, delta waves of triphasic morphology was seen throughout the recording. 2. Absence of posterior background rhythm. CLINICAL INTERPRETATION: This EEG is consistent with moderate generalized nonspecific cerebral dysfunction. No ictal or interictal epileptiform abnormalities seen during the recording. Delta waves of triphasic morphology seen with metabolic encephalopathy. Clinical correlation is advised. Job ID: [id number] [facility]
[2020-03-15 10:15] LABS: #Lymphocytes 1.2 thou/uL (1.20-3.40); #Monocytes 0.7 thou/uL (0.11-0.59); #Neutrophils 9.8 thou/uL (1.40-6.50); %Basophils 0.2 % (0.0-1.0); %Eosinophils 0.3 % (0.0-10.0); %Monocytes 5.8 % (0.0-10.0); %Neutrophils 83.7 % (42.0-75.0); Hemoglobin 10.9 g/dL (14.0-18.0); Mean Corpuscular HGB CONC 32.6 g/dL (32.0-36.0); Mean Corpuscular Hemoglobin 40.3 pg (27.0-31.0); Mean Platelet Volume 8.4 fL (7.4-10.4); Platelet Count 147 thou/uL (130-400); RBC Distribution Width 14.8 % (11.5-14.5); Red Blood Cell (RBC) Count 2.71 mill/uL (4.70-6.10); White Blood Cell (WBC) Count 11.7 thou/uL (4.8-10.8)
[2020-03-15] MEDS ORDERED: Iopamidol-370 76% 500 ML 1 ML ONE (10:23)
[2020-03-15 10:26] LABS: Vancomycin, Random 6.9 ug/mL (See Comment)
[2020-03-15 10:30] LABS: ALT (SGPT) 98 U/L (8-55); AST (SGOT) 55 U/L (5-34); Alkaline Phosphatase 95 U/L (40-110); Anion Gap 15 mmol/L (10-20); BUN (Urea Nitrogen) 28 mg/dL (8.4-25.7); Bilirubin, Total 0.6 mg/dL (0.2-1.2); Calc. Creatinine Clearance 15 mL/min (70-130); Calcium 8.1 mg/dL (7.8-10.44); Carbon Dioxide 27 mmol/L (23-31); Chloride 98 mmol/L (98-107); Estimated GFR-MDRD 17; Globulin 3.1 g/dL (2.4-3.5); Glucose 128 mg/dL (83-110); Potassium 3.1 mmol/L (3.5-5.1); Protein, Total 6.1 g/dL (5.8-8.1); Sodium 137 mmol/L (136-145)
[2020-03-15] MEDS ORDERED: Potassium Chloride 20 MEQ TAB PO SCH (11:15)
[2020-03-15] MEDS: Carvedilol 25 MG TAB PO SCH ×2 (11:30→17:24)
[2020-03-15] MEDS: Ferrous Sulfate 325 MG TAB PO SCH ×2 (11:31→17:23)
[2020-03-15] MEDS: NIFEdipine XL 30 MG TAB PO SCH (13:27)
[2020-03-15] MEDS: Aspirin 81 mg Enteric Coated Tablet PO SCH (13:27)
[2020-03-15] MEDS: Senokot S 8.6-50 MG TAB PO SCH ×2 (13:27→21:28)
[2020-03-15] MEDS: Finasteride 5 MG TAB PO SCH (13:27)
[2020-03-15] MEDS: Famotidine 20 MG TAB PO SCH (13:27)
[2020-03-15] MEDS: Calcitriol 0.25 MCG CAP PO SCH (13:28)
[2020-03-15] MEDS: Heparin 5,000 UNITS/ML VIAL SC SCH ×2 (13:29→21:28)
[2020-03-15] MEDS: Clopidogrel Bisulfate 75 MG TAB PO SCH (13:30)
[2020-03-15] MEDS: HumaLOG 300 UNITS/3 ML VIAL SC PRN (18:14)
--- NOTE | 2020-03-15 20:31 | PDOC.HOSPP ---
- Subjective Encounter Date: 03/15/20 Encounter Time: 14:00 Subjective: Patient seen and examined for altered mentation. Mentation gradually improving. Tolerating current diet. No fever or chills reported. Had visual hallucinations earlier per RN. - Objective Vital Signs & Weight: Vital Signs (12 hours) Temp Pulse Resp BP Pulse Ox 03/15/20 15:20 97.5 F L 60 16 174/63 H 93 L 03/15/20 11:30 97.5 F L 57 L 16 173/69 H 97 Weight Admit Weight 147 lb 1.6 oz Weight 133 lb 9.602 oz I&O: 03/14/20 03/15/20 03/16/20 06:59 06:59 06:59 Intake Total 542 1150 490 Output Total 3600 3000 Balance -3058 1150 -2540 Result Diagrams: 03/15/20 09:47 03/15/20 09:47 Additional Labs: Accuchecks 03/15/20 03/15/20 03/15/20 16:38 12:33 04:59 POC Glucose 167 H 114 H 139 H 03/14/20 23:54 POC Glucose 197 H Radiology Reviewed by me: Yes (CT abdomennegative for infectious etiology) EKG Reviewed by me: Yes (Sinus rhythm on telemetry) Hospitalist ROS - Review of Systems ROS unobtainable: due to mental status - Medication Medications: Active Medications Generic Name Dose Route Start Last Admin Trade Name Freq PRN Reason Stop Dose Admin Acetaminophen 650 mg 03/11/20 17:26 03/14/20 16:12 Tylenol PO 650 mg Q4H PRN Administration Headache/Fever/Mild Pain (1-3) Aspirin 81 mg 03/15/20 09:00 03/15/20 13:27 Ecotrin PO 81 mg DAILY LINDA Administration Calcitriol 0.25 mcg 03/12/20 09:00 03/15/20 13:28 Rocaltrol PO 0.25 mcg DAILY LINDA Administration Carvedilol 12.5 mg 03/14/20 17:00 03/15/20 17:24 Coreg PO 12.5 mg BID-WM LINDA Administration Clopidogrel Bisulfate 75 mg 03/13/20 09:00 03/15/20 13:30 Plavix PO 75 mg DAILY LINDA Administration Famotidine 20 mg 03/14/20 09:00 03/15/20 13:27 Pepcid PO 20 mg DAILY LINDA Administration Ferrous Sulfate 325 mg 03/12/20 08:00 03/15/20 17:23 Feosol PO 325 mg BID-WM LINDA Administration Finasteride 5 mg 03/12/20 09:00 03/15/20 13:27 Proscar PO 5 mg DAILY LINDA Administration Heparin Sodium (Porcine) 5,000 units 03/12/20 21:00 03/15/20 13:29 Heparin SC 5,000 units BID LINDA Administration Hydralazine HCl 10 mg 03/12/20 10:08 03/14/20 09:52 Apresoline SLOW IVP 10 mg Q4H PRN Administration SBP GREATER THAN 160 Insulin Human Lispro 0 units 03/11/20 17:26 03/15/20 18:14 Humalog SC 2 unit .MILD SLIDING SCALE PRN Administration Mild Correctional Scale Isosorbide Mononitrate 60 mg 03/12/20 09:00 03/15/20 13:27 Imdur PO 60 mg DAILY LINDA Administration Labetalol HCl 10 mg 03/12/20 10:04 03/13/20 21:23 Normodyne SLOW IVP 10 mg Q1H PRN Administration Systolic BP > 180 Nifedipine 30 mg 03/12/20 09:00 03/15/20 13:27 Procardia Xl PO 30 mg DAILY LINDA Administration Senna/Docusate Sodium 2 tab 03/12/20 21:00 03/15/20 13:27 Senokot S PO 2 tab BID LINDA Administration Sodium Chloride 10 ml 03/12/20 10:04 03/12/20 22:05 Flush - Normal Saline IVF 10 ml PRN PRN Administration Saline Flush - Exam General Appearance: ill appearing Neck: supple, no JVD Heart: RRR, no gallops Respiratory: no wheezes, rhonchi Gastrointestinal: soft, non-distended, normal bowel sounds, no guarding, no rigidity Extremities: no cyanosis Psychiatric - other findings: Exam limited due to current mentation Hosp A/P - Plan DVT proph w/SCDs Toxic metabolic encephalopathy probably due to recent use of baclofen versus infectious etiology 1 of 2 blood culture positive for coagulase-negative staph - suspected contaminant Rhabdomyolysis Nonsustained ventricular tachycardia Coronary artery disease status post stent placement Chronic systolic heart failure End-stage renal disease on hemodialysis Diabetes mellitus type II Hypertension Metabolic acidosis 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 Discontinue vancomycinI verified with infectious disease. Change ceftriaxone to p.o. Await records from patient's political science research assistant. Continue carvedilol. Resume hydralazine at low-dose. Continue nitrates. Continue aspirin and Plavix. [facility] facility placement. A.m. labs. CK improving. I discussed with cardiology. 03/14 Continue empiric antibiotics. Discontinue IV hypertensive medications. EEG negative. Discontinue IV fluids. Continue sliding scale. Continue carvedilol. Patient is on aspirin/Plavix at home which will be restarted. Dialysis per nephrology. [facility] facility placement. Plan discussed with the son. 03/13 Continue empiric antibiotic, continue rectal aspirin, unable to tolerate oral medication including Plavix. Obtain records from Dr. WEST office. MRI brain negative. Repeat chest x-ray reviewed. CK improving. Await cardio, neuro and infectious disease input. Dialysis per nephrology. Continue IV medications until patient able to tolerate oral medications. A.m. labs. We will try to place NG tube today. Continue sliding scale. Continue other medications as above. 03/12 Continue ceftriaxone, add vancomycin, monitor vancomycin level, continue aspirin , await urine cultures, dialysis per nephrology, speech therapy evaluation start IV labetalol due to inability to take po meds, recheck chest x-ray in a.m. , consult cardiology, add echocardiogram, labs in a.m Plan discussed with patient's son over the phone.Consider brain MRI if mentation does not improve. Please note that patient has 2 different medical record number. For previous records please refer to
[2020-03-15] MEDS: Cefdinir 300 MG CAP PO SCH (21:28)
[2020-03-15] MEDS: hydrALAZINE 25 MG TAB PO SCH (21:28)
[2020-03-16 04:56] LABS: ALT (SGPT) 82 U/L (8-55); AST (SGOT) 42 U/L (5-34); Albumin 2.8 g/dL (3.4-4.8); Alkaline Phosphatase 97 U/L (40-110); Anion Gap 15 mmol/L (10-20); BUN (Urea Nitrogen) 21 mg/dL (8.4-25.7); Bilirubin, Total 0.5 mg/dL (0.2-1.2); CK (CPK) 120 U/L (30-200); Calc. Creatinine Clearance 17 mL/min (70-130); Calcium 8.2 mg/dL (7.8-10.44); Carbon Dioxide 26 mmol/L (23-31); Chloride 102 mmol/L (98-107); Estimated GFR-MDRD 19; Glucose 149 mg/dL (83-110); Potassium 3.8 mmol/L (3.5-5.1); Protein, Total 5.8 g/dL (5.8-8.1); Sodium 139 mmol/L (136-145)
[2020-03-16 05:32] LABS: Hemoglobin 11.4 g/dL (14.0-18.0); Mean Corpuscular HGB CONC 32.7 g/dL (32.0-36.0); Mean Corpuscular Hemoglobin 40.9 pg (27.0-31.0); Mean Platelet Volume 8.6 fL (7.4-10.4); Platelet Count 139 thou/uL (130-400); RBC Distribution Width 15.1 % (11.5-14.5); Red Blood Cell (RBC) Count 2.78 mill/uL (4.70-6.10); White Blood Cell (WBC) Count 10.4 thou/uL (4.8-10.8)
[2020-03-16 05:38] LABS: Band 1 % (5-11); Lymphocytes 13 % (21-51); MDiff Complete? YES; Macrocytosis MODERATE=16-30 cells (100X) (0-5/hpf); Monocytes 8 % (0-10); Neutrophil 78 % (42-75)
[2020-03-16] MEDS: Famotidine 20 MG TAB PO SCH (08:56)
[2020-03-16] MEDS: Carvedilol 25 MG TAB PO SCH ×2 (08:57→17:11)
[2020-03-16] MEDS: Ferrous Sulfate 325 MG TAB PO SCH ×2 (08:57→17:11)
[2020-03-16] MEDS: Finasteride 5 MG TAB PO SCH (08:58)
[2020-03-16] MEDS: Aspirin 81 mg Enteric Coated Tablet PO SCH (08:58)
[2020-03-16] MEDS: Senokot S 8.6-50 MG TAB PO SCH ×2 (08:58→20:00)
[2020-03-16] MEDS: Clopidogrel Bisulfate 75 MG TAB PO SCH (08:58)
[2020-03-16] MEDS: NIFEdipine XL 30 MG TAB PO SCH (08:58)
[2020-03-16] MEDS: Calcitriol 0.25 MCG CAP PO SCH (08:58)
[2020-03-16] MEDS: hydrALAZINE 25 MG TAB PO SCH ×3 (08:59→20:00)
[2020-03-16] MEDS: Heparin 5,000 UNITS/ML VIAL SC SCH (08:59)
--- NOTE | 2020-03-16 09:12 | PRG ---
DATE OF SERVICE: 03/16/2020 SUBJECTIVE: Mr. Mcintosh is a 79-year-old male with ESRD, was initially admitted for mental status change. Initial CAT scan showed no acute intracranial abnormality. In addition, on March 14, an EEG was done by his neurologist. It was found to be consistent with moderate generalized nonspecific cerebral dysfunction. No evidence of epilepsy was noted. No other complaints today. No chest pain or shortness of breath. OBJECTIVE: VITAL SIGNS: Blood pressure 136/84, heart rate 65, respiratory rate 16, temperature 97.5, and O2 saturation 92%. GENERAL: The patient is awake, alert, comfortable, less confused, not in distress. SKIN: Adequate turgor. HEENT: Pinkish conjunctivae. Anicteric sclerae. NECK: No neck mass. No carotid bruits. No JVD. CHEST: No deformities. LUNGS: Clear breath sounds. HEART: Normal sinus rhythm. No murmurs. No gallops. No rubs. ABDOMEN: Globular, soft, and nontender. No masses. EXTREMITIES: No edema. No deformities. MEDICATIONS: Medications of 03/16 reviewed. LABORATORY DATA: Laboratories of March 16, 2020; white count 10.4, hemoglobin 11.4. Sodium 139, potassium 3.8, chloride 102, carbon dioxide 26, BUN 21, creatinine 3.21, glucose 149, and calcium 8.2. AST 42, ALT 82, and albumin 2.8. ASSESSMENT AND PLAN: 1. End-stage renal disease, stable, tolerating current hemodialysis regimen. Fluid removal is also being tolerated. 2. Anemia, stable. No indication for any Epogen. 3. Congestive heart failure-maxing out fluid removal, clinically improving. 4. Mental status change-secondary to presumed metabolic encephalopathy. Continue supportive care. The patient is improving. 5. Recheck basic met and CBC in a.m. Job ID: [id number] [facility]
[2020-03-16] MEDS: HumaLOG 300 UNITS/3 ML VIAL SC PRN ×2 (12:34→21:20)
--- NOTE | 2020-03-16 15:32 | PDOC.HOSPP ---
- Subjective Encounter Date: 03/16/20 Encounter Time: 10:30 Subjective: Patient seen and examined for altered mentation. Mentation slowly improving. Still has hallucinations. No fever, nausea or cough reported. - Objective Vital Signs & Weight: Vital Signs (12 hours) Temp Pulse Resp BP Pulse Ox 03/16/20 11:25 97.2 F L 57 L 18 115/55 L 92 L 03/16/20 07:25 97.5 F L 65 16 136/84 92 L 03/16/20 04:00 97.7 F 57 L 15 157/65 H 100 Weight Admit Weight 147 lb 1.6 oz Weight 129 lb 9.6 oz I&O: 03/15/20 03/16/20 03/17/20 06:59 06:59 06:59 Intake Total 1150 640 Output Total 3000 Balance 1150 -2360 Result Diagrams: 03/16/20 03:56 03/16/20 03:56 Additional Labs: Accuchecks 03/16/20 03/16/20 03/15/20 10:59 05:17 21:22 POC Glucose 203 H 152 H 170 H 03/15/20 16:38 POC Glucose 167 H EKG Reviewed by me: Yes (Sinus rhythm on telemetry) Hospitalist ROS - Review of Systems Respiratory: denies: cough, dry, shortness of breath, hemoptysis, SOB with excertion, pleuritic pain, sputum, wheezing, other Cardiovascular: denies: chest pain, palpitations, orthopnea, paroxysmal noc. dyspnea, edema, light headedness, other - Medication Medications: Active Medications Generic Name Dose Route Start Last Admin Trade Name Yohanq PRN Reason Stop Dose Admin Acetaminophen 650 mg 03/11/20 17:26 03/14/20 16:12 Tylenol PO 650 mg Q4H PRN Administration Headache/Fever/Mild Pain (1-3) Aspirin 81 mg 03/15/20 09:00 03/16/20 08:58 Ecotrin PO 81 mg DAILY LINDA Administration Calcitriol 0.25 mcg 03/12/20 09:00 03/16/20 08:58 Rocaltrol PO 0.25 mcg DAILY LINDA Administration Carvedilol 12.5 mg 03/14/20 17:00 03/16/20 08:57 Coreg PO 12.5 mg BID- LINDA Administration Cefdinir 300 mg 03/15/20 21:00 03/15/20 21:28 Omnicef PO 300 mg HS LINDA Administration Clopidogrel Bisulfate 75 mg 03/13/20 09:00 03/16/20 08:58 Plavix PO 75 mg DAILY LINDA Administration Ferrous Sulfate 325 mg 03/12/20 08:00 03/16/20 08:57 Feosol PO 325 mg BID-WM LINDA Administration Finasteride 5 mg 03/12/20 09:00 03/16/20 08:58 Proscar PO 5 mg DAILY LINDA Administration Heparin Sodium (Porcine) 5,000 units 03/12/20 21:00 03/16/20 08:59 Heparin SC 5,000 units BID [facility] Administration Hydralazine HCl 10 mg 03/12/20 10:08 03/14/20 09:52 Apresoline SLOW IVP 10 mg Q4H PRN Administration SBP GREATER THAN 160 Hydralazine HCl 25 mg 03/15/20 21:00 03/16/20 15:13 Apresoline PO 25 mg TID [facility] Administration Insulin Human Lispro 0 units 03/11/20 17:26 03/16/20 12:34 Humalog SC 3 unit .MILD SLIDING SCALE PRN Administration Mild Correctional Scale Isosorbide Mononitrate 60 mg 03/12/20 09:00 03/16/20 08:58 Imdur PO 60 mg DAILY [facility] Administration Labetalol HCl 10 mg 03/12/20 10:04 03/13/20 21:23 Normodyne SLOW IVP 10 mg Q1H PRN Administration Systolic BP > 180 Nifedipine 30 mg 03/12/20 09:00 03/16/20 08:58 Procardia Xl PO 30 mg DAILY [facility] Administration Senna/Docusate Sodium 2 tab 03/12/20 21:00 03/16/20 08:58 Senokot S PO 2 tab BID [facility] Administration Sodium Chloride 10 ml 03/12/20 10:04 03/12/20 22:05 Flush - Normal Saline IVF 10 ml PRN PRN Administration Saline Flush - Exam General Appearance: NAD Neck: supple, no JVD Heart: RRR, no gallops Respiratory: no wheezes, no ronchi Gastrointestinal: non-tender, normal bowel sounds Extremities: no cyanosis Neurological: no new deficit Psychiatric: A&O x 3, somnolent Hosp A/P - Plan DVT proph w/heparin Toxic metabolic encephalopathy probably due to recent use of baclofen versus infectious etiologyimproving Rhabdomyolysis Nonsustained ventricular tachycardia Coronary artery disease status post stent placement Chronic systolic heart failure Peripheral vascular disease End-stage renal disease on hemodialysis Diabetes mellitus type II Hypertension Metabolic acidosis 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 Salgado. Will need event monitor at [place]. Continue dialysis and other medications as above. Will hold subcu heparin for now due to bruising and high risk of bleeding while on aspirin and Plavix. Add nicotine patch as needed. A.m. labs 03/15 Replace potassium. Discontinue vancomycinI verified with infectious disease. Change ceftriaxone to p.o. Await records from patient's hollow handle knife assembler. Continue carvedilol. Resume hydralazine at low-dose. Continue nitrates. Continue aspirin and Plavix. senior care facility placement. A.m. labs. CK improving. I discussed with cardiology. 03/14 Continue empiric antibiotics. Discontinue IV hypertensive medications. EEG negative. Discontinue IV fluids. Continue sliding scale. Continue carvedilol. Patient is on aspirin/Plavix at home which will be restarted. Dialysis per nephrology. senior care facility placement. Plan discussed with the son. 03/13 Continue empiric antibiotic, continue rectal aspirin, unable to tolerate oral medication including Plavix. Obtain records from Dr. SALGADO office. MRI brain negative. Repeat chest x-ray reviewed. CK improving. Await cardio, neuro and infectious disease input. Dialysis per nephrology. Continue IV medications until patient able to tolerate oral medications. A.m. labs. We will try to place NG tube today. Continue sliding scale. Continue other medications as above. 03/12 Continue ceftriaxone, add vancomycin, monitor vancomycin level, continue aspirin , await urine cultures, dialysis per nephrology, speech therapy evaluation start IV labetalol due to inability to take po meds, recheck chest x-ray in a.m. , consult cardiology, add echocardiogram, labs in a.m Plan discussed with patient's son over the phone.Consider brain MRI if mentation does not improve. Please note that patient has 2 different medical record number. For previous records please refer to
[2020-03-16] MEDS: Nicotine 7 MG PATCH TD PRN (17:53)
[2020-03-16] MEDS: Cefdinir 300 MG CAP PO SCH (20:00)
[2020-03-17 05:31] LABS: #Eosinphils 0.3 thou/uL (0.0-0.7); #Lymphocytes 1.3 thou/uL (1.20-3.40); #Monocytes 0.9 thou/uL (0.11-0.59); #Neutrophils 7.6 thou/uL (1.40-6.50); %Eosinophils 2.6 % (0.0-10.0); %Lymphocytes 12.9 % (21.0-51.0); %Monocytes 8.8 % (0.0-10.0); %Neutrophils 75.7 % (42.0-75.0); Hemoglobin 11.7 g/dL (14.0-18.0); Mean Corpuscular HGB CONC 31.5 g/dL (32.0-36.0); Mean Corpuscular Hemoglobin 39.9 pg (27.0-31.0); Mean Platelet Volume 8.9 fL (7.4-10.4); Platelet Count 160 thou/uL (130-400); Red Blood Cell (RBC) Count 2.93 mill/uL (4.70-6.10); White Blood Cell (WBC) Count 10.1 thou/uL (4.8-10.8)
[2020-03-17 05:32] LABS: Anion Gap 20 mmol/L (10-20); BUN (Urea Nitrogen) 34 mg/dL (8.4-25.7); Calc. Creatinine Clearance 11 mL/min (70-130); Calcium 8.5 mg/dL (7.8-10.44); Carbon Dioxide 23 mmol/L (23-31); Chloride 99 mmol/L (98-107); Estimated GFR-MDRD 13; Glucose 125 mg/dL (83-110); Potassium 4.2 mmol/L (3.5-5.1); Sodium 138 mmol/L (136-145)
[2020-03-17] MEDS: HumaLOG 300 UNITS/3 ML VIAL SC PRN ×2 (06:15→20:33)
[2020-03-17] MEDS: NIFEdipine XL 30 MG TAB PO SCH (08:35)
[2020-03-17] MEDS: Carvedilol 25 MG TAB PO SCH ×2 (08:35→17:23)
[2020-03-17] MEDS: Calcitriol 0.25 MCG CAP PO SCH (08:35)
[2020-03-17] MEDS: hydrALAZINE 25 MG TAB PO SCH ×4 (08:35→20:34)
[2020-03-17] MEDS: Ferrous Sulfate 325 MG TAB PO SCH ×2 (08:35→17:23)
[2020-03-17] MEDS: Aspirin 81 mg Enteric Coated Tablet PO SCH (08:35)
[2020-03-17] MEDS: Finasteride 5 MG TAB PO SCH (08:35)
[2020-03-17] MEDS: Senokot S 8.6-50 MG TAB PO SCH ×2 (08:36→20:34)
[2020-03-17] MEDS: Clopidogrel Bisulfate 75 MG TAB PO SCH (08:36)
--- NOTE | 2020-03-17 09:05 | PRG ---
DATE OF SERVICE: 03/17/2020 SUBJECTIVE: Mr. Mcintosh is a 79-year-old male with ESRD and admitted for mental status change. Neurological workup was essentially negative. EEG and CAT scan showed no acute abnormality. His change in mentation is most likely from metabolic encephalopathy. We will continue to follow this patient for management of his ESRD. I have scheduled him for another dialysis session today. The patient is still agitated and confused. OBJECTIVE: VITAL SIGNS: Blood pressure 120/57, heart rate 60, respiratory rate 24, and O2 saturation 90%. GENERAL: The patient is awake, confused, but not in distress. SKIN: Adequate turgor. HEENT: He has pinkish conjunctivae. Anicteric sclerae. NECK: No neck mass. No carotid bruits. No JVD. CHEST: No deformities. LUNGS: Clear breath sounds. HEART: Normal sinus rhythm. No murmur. No gallops. No rubs. ABDOMEN: Globular, soft, and nontender. No masses. EXTREMITIES: No edema. No deformities. MEDICATIONS: Of March 17, 2020, was reviewed. LABORATORY DATA: Laboratories of March 17, 2020; white count 10.1, hemoglobin 11.7. Sodium 138, potassium 4.2, chloride 99, carbon dioxide 23, BUN 34, creatinine 4.58, glucose 125, and calcium 8.5. TSH 2.7. ASSESSMENT AND PLAN: 1. End-stage renal disease, stable. We will continue current Friday, Friday, and Friday hemodialysis. The patient is scheduled for dialysis today. My plan is to attempt to remove around 2 L of fluid as tolerated by the patient. 2. Slightly decreased hemoglobin - we will continue to observe. 3. Mental status change - secondary to presumed metabolic encephalopathy. Neurology following. Please note, CAT scan of the head showed no acute intracranial abnormality. EEG showed no evidence of any seizure activity. Overall, agree with current management. Recheck CBC and basic metabolic panel in a.m. Job ID: [id number]
[2020-03-17] MEDS: Acetaminophen 325 MG TAB PO PRN (14:20)
--- NOTE | 2020-03-17 15:34 | PRG ---
DATE OF SERVICE: 03/17/2020 SUBJECTIVE: Mr. Mcintosh is awake, little bit confused, does not appear in distress. No diarrhea. No respiratory symptoms. OBJECTIVE: VITAL SIGNS: He has been afebrile. BP 130/59, pulse 58, respirations 18, and O2 saturation ranging from 93 to 95. LUNGS: Symmetric air entry. HEART: S1 and S2, regular rate. ABDOMEN: Soft, not distended. LABORATORY DATA: White cell count is down to 10.1, hemoglobin 11.7, platelets 160 with 75% neutrophils. Sodium 138, creatinine 4.5. TSH 2.7 and Microbiology with no significant findings. The repeat abdomen and pelvis CT with findings suspicious for CHF, may be a consolidation in the right lung base or bladder sludge. ASSESSMENT AND DISCUSSION: Coronary artery disease; ischemic cardiomyopathy; end-stage renal disease, on hemodialysis; type 2 diabetes; delirium; abnormal liver function tests; abnormal CT of chest with possible early pneumonitis. As pointed out by Dr. Knox, the patient had been given baclofen by the PMNR MD. The dose that was prescribed was higher than what it is recommended for patients in end-stage renal disease, so that could have played a role in the patient's clinical changes that led to admission. Job ID: [id number]
[2020-03-17] MEDS: Nicotine 7 MG PATCH TD PRN (17:35)
--- NOTE | 2020-03-17 18:07 | PDOC.HOSPP ---
- Subjective Encounter Date: 03/17/20 Encounter Time: 12:00 Subjective: Patient seen and examined for encephalopathy. Mentation gradually improving. Somewhat more confused today. No overnight events reported. - Objective Vital Signs & Weight: Vital Signs (12 hours) Temp Pulse Resp BP Pulse Ox 03/17/20 16:00 97.8 F 62 22 H 151/67 H 97 03/17/20 14:21 58 L 03/17/20 13:20 96.9 F L 58 L 18 130/59 L 93 L 03/17/20 08:37 60 03/17/20 08:35 60 03/17/20 08:00 97.2 F L 88 18 136/65 95 Weight Admit Weight 147 lb 1.6 oz Weight 131 lb 8 oz I&O: 03/16/20 03/17/20 03/18/20 06:59 06:59 06:59 Intake Total 640 720 360 Output Total 3000 0 2400 Balance -2360 720 -2040 Result Diagrams: 03/17/20 04:16 03/17/20 04:16 Additional Labs: Accuchecks 03/17/20 03/17/20 03/16/20 16:35 05:45 20:40 POC Glucose 227 H 171 H 222 H EKG Reviewed by me: Yes (Sinus rhythm on telemetry) Hospitalist ROS - Review of Systems ROS unobtainable: due to mental status - Medication Medications: Active Medications Generic Name Dose Route Start Last Admin Trade Name Freq PRN Reason Stop Dose Admin Acetaminophen 650 mg 03/11/20 17:26 03/17/20 14:20 Tylenol PO 650 mg Q4H PRN Administration Headache/Fever/Mild Pain (1-3) Aspirin 81 mg 03/15/20 09:00 03/17/20 08:35 Ecotrin PO 81 mg DAILY LINDA Administration Calcitriol 0.25 mcg 03/12/20 09:00 03/17/20 08:35 Rocaltrol PO 0.25 mcg DAILY [facility]DA Administration Carvedilol 12.5 mg 03/14/20 17:00 03/17/20 17:23 Coreg PO 12.5 mg BID-WM LINDA Administration Cefdinir 300 mg 03/15/20 21:00 03/16/20 20:00 Omnicef PO 300 mg HS LINDA Administration Clopidogrel Bisulfate 75 mg 03/13/20 09:00 03/17/20 08:36 Plavix PO 75 mg DAILY [facility]DA Administration Ferrous Sulfate 325 mg 03/12/20 08:00 03/17/20 17:23 Feosol PO 325 mg BID-WM LINDA Administration Finasteride 5 mg 03/12/20 09:00 03/17/20 08:35 Proscar PO 5 mg DAILY [facility] Administration Hydralazine HCl 10 mg 03/12/20 10:08 03/14/20 09:52 Apresoline SLOW IVP 10 mg Q4H PRN Administration SBP GREATER THAN 160 Hydralazine HCl 25 mg 03/15/20 21:00 03/17/20 14:21 Apresoline PO 25 mg TID LINDA Administration Insulin Human Lispro 0 units 03/11/20 17:26 03/17/20 06:15 Humalog SC 2 unit .MILD SLIDING SCALE PRN Administration Mild Correctional Scale Insulin Human Lispro 0 units 03/11/20 23:02 03/16/20 21:20 Humalog SC 2 unit .BEDTIME SLIDING SC PRN Administration Bedtime Correctional Scale Isosorbide Mononitrate 60 mg 03/12/20 09:00 03/17/20 08:35 Imdur PO 60 mg DAILY [facility]DA Administration Labetalol HCl 10 mg 03/12/20 10:04 03/13/20 21:23 Normodyne SLOW IVP 10 mg Q1H PRN Administration Systolic BP > 180 Nicotine 7 mg 03/16/20 15:28 03/17/20 17:35 Nicoderm Patch TD 7 mg Q24HR PRN Administration Smoking Cessation Nifedipine 30 mg 03/12/20 09:00 03/17/20 08:35 Procardia Xl PO 30 mg DAILY LINDA Administration Senna/Docusate Sodium 2 tab 03/12/20 21:00 03/17/20 08:36 Senokot S PO 2 tab BID LINDA Administration Sodium Chloride 10 ml 03/12/20 10:04 03/16/20 20:00 Flush - Normal Saline IVF 10 ml PRN PRN Administration Saline Flush - Exam General Appearance: NAD General - other findings: Confused Heart: RRR, no gallops Respiratory: no wheezes, rhonchi Gastrointestinal: soft, non-distended Extremities: no cyanosis Hosp A/P - Plan DVT proph w/SCDs Toxic metabolic encephalopathy probably due to recent use of baclofen vs UTI vs suspected pneumonia ?Aspiration Rhabdomyolysis Nonsustained ventricular tachycardia Coronary artery disease status post stent placement Chronic systolic heart failure Peripheral vascular disease End-stage renal disease on hemodialysis Diabetes mellitus type II Hypertension Metabolic acidosis 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 Add doxycycline. Mentation gradually improving. Continue current antihypertensive medication. Continue aspirin with Plavix. Await placement. Heparin on hold due to significant skin bruising. Dialysis per nephrology. 03/16 I discussed with patient's primary weatherization technician Dr. Salgado. Will need event monitor at [place]. Continue dialysis and other medications as above. Will hold subcu heparin for now due to bruising and high risk of bleeding while on aspirin and Plavix. Add nicotine patch as needed. A.m. labs 03/15 Replace potassium. Discontinue vancomycinI verified with infectious disease. Change ceftriaxone to p.o. Await records from patient's weatherization technician. Continue carvedilol. Resume hydralazine at low-dose. Continue nitrates. Continue aspirin and Plavix. custodial facility placement. A.m. labs. CK improving. I discussed with cardiology. 03/14 Continue empiric antibiotics. Discontinue IV hypertensive medications. EEG negative. Discontinue IV fluids. Continue sliding scale. Continue carvedilol. Patient is on aspirin/Plavix at home which will be restarted. Dialysis per nephrology. custodial facility placement. Plan discussed with the son. 03/13 Continue empiric antibiotic, continue rectal aspirin, unable to tolerate oral medication including Plavix. Obtain records from Dr. SALGADO office. MRI brain negative. Repeat chest x-ray reviewed. CK improving. Await cardio, neuro and infectious disease input. Dialysis per nephrology. Continue IV medications until patient able to tolerate oral medications. A.m. labs. We will try to place NG tube today. Continue sliding scale. Continue other medications as above. 03/12 Continue ceftriaxone, add vancomycin, monitor vancomycin level, continue aspirin , await urine cultures, dialysis per nephrology, speech therapy evaluation start IV labetalol due to inability to take po meds, recheck chest x-ray in a.m. , consult cardiology, add echocardiogram, labs in a.m Plan discussed with patient's son over the phone.Consider brain MRI if mentation does not improve. Please note that patient has 2 different medical record number. For previous records please refer to
[2020-03-17] MEDS: Doxycycline 100 MG CAP PO SCH (20:34)
[2020-03-17] MEDS: Cefdinir 300 MG CAP PO SCH (20:34)
[2020-03-17 22:38] LABS: Anion Gap 18 mmol/L (10-20); BUN (Urea Nitrogen) 22 mg/dL (8.4-25.7); Calc. Creatinine Clearance 16 mL/min (70-130); Calcium 8.3 mg/dL (7.8-10.44); Carbon Dioxide 23 mmol/L (23-31); Chloride 100 mmol/L (98-107); Estimated GFR-MDRD 19; Glucose 160 mg/dL (83-110); Magnesium 2.3 mg/dL (1.6-2.6); Potassium 5.1 mmol/L (3.5-5.1); Sodium 136 mmol/L (136-145)
[2020-03-18 05:43] LABS: #Basophils 0.1 thou/uL (0.0-0.2); #Eosinphils 0.2 thou/uL (0.0-0.7); #Monocytes 0.9 thou/uL (0.11-0.59); #Neutrophils 7.8 thou/uL (1.40-6.50); %Basophils 1.4 % (0.0-1.0); %Eosinophils 1.5 % (0.0-10.0); %Lymphocytes 10.3 % (21.0-51.0); %Monocytes 8.7 % (0.0-10.0); %Neutrophils 78.1 % (42.0-75.0); Hemoglobin 13.2 g/dL (14.0-18.0); Mean Corpuscular HGB CONC 31.4 g/dL (32.0-36.0); Mean Corpuscular Hemoglobin 39.8 pg (27.0-31.0); Mean Platelet Volume 8.3 fL (7.4-10.4); Platelet Count 174 thou/uL (130-400); RBC Distribution Width 14.5 % (11.5-14.5)
[2020-03-18 06:03] LABS: Anion Gap 17 mmol/L (10-20); BUN (Urea Nitrogen) 23 mg/dL (8.4-25.7); Calc. Creatinine Clearance 15 mL/min (70-130); Calcium 8.4 mg/dL (7.8-10.44); Carbon Dioxide 24 mmol/L (23-31); Chloride 97 mmol/L (98-107); Estimated GFR-MDRD 18; Glucose 105 mg/dL (83-110); Potassium 4.1 mmol/L (3.5-5.1); Sodium 134 mmol/L (136-145)
[2020-03-18] MEDS: Doxycycline 100 MG CAP PO SCH ×2 (08:11→20:25)
[2020-03-18] MEDS: Calcitriol 0.25 MCG CAP PO SCH (08:12)
[2020-03-18] MEDS: Clopidogrel Bisulfate 75 MG TAB PO SCH (08:12)
[2020-03-18] MEDS: Carvedilol 25 MG TAB PO SCH ×2 (08:12→16:19)
[2020-03-18] MEDS: hydrALAZINE 25 MG TAB PO SCH ×3 (08:13→20:24)
[2020-03-18] MEDS: Ferrous Sulfate 325 MG TAB PO SCH ×2 (08:13→16:19)
[2020-03-18] MEDS: Finasteride 5 MG TAB PO SCH (08:13)
[2020-03-18] MEDS: Saccharomyces boulardii 250 MG CAP PO SCH (08:13)
[2020-03-18] MEDS: Aspirin 81 mg Enteric Coated Tablet PO SCH (08:13)
[2020-03-18] MEDS: NIFEdipine XL 30 MG TAB PO SCH (08:13)
[2020-03-18] MEDS: Senokot S 8.6-50 MG TAB PO SCH ×2 (08:14→20:25)
[2020-03-18] MEDS: Acetaminophen 325 MG TAB PO PRN ×2 (10:31→16:19)
--- NOTE | 2020-03-18 11:16 | PRG ---
DATE OF SERVICE: 03/18/2020 SUBJECTIVE: Mr. Mcintosh is a 79-year-old male with ESRD, currently on maintenance hemodialysis. The patient was initially admitted for confusion from a metabolic encephalopathy. It could also be from some of his medications, which have been placed on hold by the hospitalist-off baclofen. The patient is noted to be less agitated and less confused today. He voices no new complaints. No chest pain or shortness of breath. OBJECTIVE: VITAL SIGNS: Blood pressure 120/59, heart rate 66, respiratory rate 16, temperature 96.8, and O2 saturation 99%. GENERAL: The patient is awake and comfortable, not in distress. SKIN: Adequate turgor. HEENT: He has a pinkish conjunctivae. Anicteric sclerae. NECK: No neck mass. No carotid bruits. No JVD. CHEST: No deformities. LUNGS: Clear breath sounds. No wheezing. No crackles. HEART: Normal sinus rhythm. No murmur. No gallops. No rubs. ABDOMEN: Globular, soft, and nontender. No masses. EXTREMITIES: No edema. No deformities. MEDICATIONS: Medications of March 18, 2020, was reviewed. DIAGNOSTIC STUDIES: LABORATORY RESULTS: Laboratories of March 18, 2020; white count 10 and hemoglobin 13.2. Sodium 134, potassium 4.1, chloride 97, carbon dioxide 24, BUN 23, creatinine 3.36, glucose 105, and calcium 8.4. ASSESSMENT AND PLAN: 1. End-stage renal disease, stable. No indication for any emergent hemodialysis. Continue supportive care. Continue Friday, Friday, and Friday dialysis regimen. Fluid removal only as tolerated. 2. Metabolic encephalopathy-clinically more awake today. He is less agitated. He has been discontinued from his baclofen. 3. Recheck CBC and base met in a.m. Job ID: [id number] MTDD
[2020-03-18] MEDS: HumaLOG 300 UNITS/3 ML VIAL SC PRN (12:34)
--- NOTE | 2020-03-18 16:39 | PDOC.HOSPP ---
- Subjective Encounter Date: 03/18/20 Encounter Time: 10:00 Subjective: Patient seen and examined for altered mentation. Mentation improving. No new complaints. No chest pain, fever, nausea or new neurologic deficit reported. - Objective Vital Signs & Weight: Vital Signs (12 hours) Temp Pulse Resp BP BP Pulse Ox 03/18/20 16:05 97.3 F L 60 16 133/60 96 03/18/20 12:03 97.7 F 60 20 105/52 L 95 03/18/20 09:59 120/59 L 03/18/20 07:48 96.8 F L 66 16 200/91 H 99 Weight Admit Weight 147 lb 1.6 oz Weight 124 lb 8.979 oz I&O: 03/17/20 03/18/20 03/19/20 06:59 06:59 06:59 Intake Total 720 820 Output Total 0 2400 Balance 720 -1580 Result Diagrams: 03/18/20 04:44 03/18/20 04:44 Additional Labs: Accuchecks 03/18/20 03/18/20 03/17/20 11:21 05:58 20:22 POC Glucose 164 H 115 H 243 H 03/17/20 16:35 POC Glucose 227 H EKG Reviewed by me: Yes (Sinus rhythm on telemetry) Hospitalist ROS - Review of Systems Respiratory: denies: cough, dry, shortness of breath, hemoptysis, SOB with excertion, pleuritic pain, sputum, wheezing, other Cardiovascular: denies: chest pain, palpitations, orthopnea, paroxysmal noc. dyspnea, edema, light headedness, other Gastrointestinal: denies: nausea, vomiting, abdominal pain, diarrhea, constipation, melena, hematochezia, other - Medication Medications: Active Medications Generic Name Dose Route Start Last Admin Trade Name Freq PRN Reason Stop Dose Admin Acetaminophen 650 mg 03/11/20 17:26 03/18/20 16:19 Tylenol PO 650 mg Q4H PRN Administration Headache/Fever/Mild Pain (1-3) Aspirin 81 mg 03/15/20 09:00 03/18/20 08:13 Ecotrin PO 81 mg DAILY [facility] Administration Calcitriol 0.25 mcg 03/12/20 09:00 03/18/20 08:12 Rocaltrol PO 0.25 mcg DAILY [facility] Administration Carvedilol 12.5 mg 03/14/20 17:00 03/18/20 16:19 Coreg PO 12.5 mg BID-WM [facility] Administration Cefdinir 300 mg 03/15/20 21:00 03/17/20 20:34 Omnicef PO 300 mg HS LINDA Administration Clopidogrel Bisulfate 75 mg 03/13/20 09:00 03/18/20 08:12 Plavix PO 75 mg DAILY [facility] Administration Doxycycline Hyclate 100 mg 03/17/20 21:00 03/18/20 08:11 Vibramycin PO 100 mg BID [facility] Administration Ferrous Sulfate 325 mg 03/12/20 08:00 03/18/20 16:19 Feosol PO 325 mg BID-WM [facility] Administration Finasteride 5 mg 03/12/20 09:00 03/18/20 08:13 Proscar PO 5 mg DAILY [facility] Administration Hydralazine HCl 10 mg 03/12/20 10:08 03/14/20 09:52 Apresoline SLOW IVP 10 mg Q4H PRN Administration SBP GREATER THAN 160 Hydralazine HCl 25 mg 03/15/20 21:00 03/18/20 16:19 Apresoline PO 25 mg TID [facility] Administration Insulin Human Lispro 0 units 03/11/20 17:26 03/18/20 12:34 Humalog SC 2 unit .MILD SLIDING SCALE PRN Administration Mild Correctional Scale Insulin Human Lispro 0 units 03/11/20 23:02 03/17/20 20:33 Humalog SC 2 unit .BEDTIME SLIDING SC PRN Administration Bedtime Correctional Scale Isosorbide Mononitrate 60 mg 03/12/20 09:00 03/18/20 08:13 Imdur PO 60 mg DAILY [facility] Administration Labetalol HCl 10 mg 03/12/20 10:04 03/13/20 21:23 Normodyne SLOW IVP 10 mg Q1H PRN Administration Systolic BP > 180 Nicotine 7 mg 03/16/20 15:28 03/17/20 17:35 Nicoderm Patch TD 7 mg Q24HR PRN Administration Smoking Cessation Nifedipine 30 mg 03/12/20 09:00 03/18/20 08:13 Procardia Xl PO 30 mg DAILY [facility] Administration Saccharomyces Boulardii 250 mg 03/18/20 09:00 03/18/20 08:13 Florastor PO 250 mg DAILY [facility] Administration Senna/Docusate Sodium 2 tab 03/12/20 21:00 03/18/20 08:14 Senokot S PO Not Given BID [facility] Sodium Chloride 10 ml 03/12/20 10:04 03/16/20 20:00 Flush - Normal Saline IVF 10 ml PRN PRN Administration Saline Flush - Exam General Appearance: NAD Neck: supple, no JVD Heart: RRR, no gallops Respiratory: no wheezes, no ronchi Gastrointestinal: non-tender, normal bowel sounds Extremities: no cyanosis Neurological: no new deficit Musculoskeletal: generalized weakness Psychiatric: A&O x 3 Hosp A/P - Plan Toxic metabolic encephalopathy probably due to recent use of baclofen vs UTI vs suspected pneumonia ?Aspiration Rhabdomyolysis Nonsustained ventricular tachycardia Coronary artery disease status post stent placement Chronic systolic heart failure Peripheral vascular disease End-stage renal disease on hemodialysis Diabetes mellitus type II Hypertension Metabolic acidosis 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 Continue antiplatelet. Continue current hypertensive medications. Continue beta-blockers. Continue other medications as above. Dialysis per nephrology await placement. 03/17 Continue Omnicef. Add doxycycline. Mentation gradually improving. Continue current antihypertensive medication. Continue aspirin with Plavix. Await placement. Heparin on hold due to significant skin bruising. Dialysis per nephrology. 03/16 I discussed with patient's primary knitter hand Dr. Salgado. Will need event monitor at [place]. Continue dialysis and other medications as above. Will hold subcu heparin for now due to bruising and high risk of bleeding while on aspirin and Plavix. Add nicotine patch as needed. A.m. labs 03/15 Replace potassium. Discontinue vancomycinI verified with infectious disease. Change ceftriaxone to p.o. Await records from patient's knitter hand. Continue carvedilol. Resume hydralazine at low-dose. Continue nitrates. Continue aspirin and Plavix. senior living facility placement. A.m. labs. CK improving. I discussed with cardiology. 03/14 Continue empiric antibiotics. Discontinue IV hypertensive medications. EEG negative. Discontinue IV fluids. Continue sliding scale. Continue carvedilol. Patient is on aspirin/Plavix at home which will be restarted. Dialysis per nephrology. senior living facility placement. Plan discussed with the son. 03/13 Continue empiric antibiotic, continue rectal aspirin, unable to tolerate oral medication including Plavix. Obtain records from Dr. SALGADO office. MRI brain negative. Repeat chest x-ray reviewed. CK improving. Await cardio, neuro and infectious disease input. Dialysis per nephrology. Continue IV medications until patient able to tolerate oral medications. A.m. labs. We will try to place NG tube today. Continue sliding scale. Continue other medications as above. 03/12 Continue ceftriaxone, add vancomycin, monitor vancomycin level, continue aspirin , await urine cultures, dialysis per nephrology, speech therapy evaluation start IV labetalol due to inability to take po meds, recheck chest x-ray in a.m. , consult cardiology, add echocardiogram, labs in a.m Plan discussed with patient's son over the phone.Consider brain MRI if mentation does not improve. Please note that patient has 2 different medical record number. For previous records please refer to
[2020-03-18] MEDS: Nicotine 7 MG PATCH TD PRN (20:24)
[2020-03-18] MEDS: Cefdinir 300 MG CAP PO SCH (20:24)
[2020-03-18] MEDS: Acetaminophen 325 MG TAB PO SCH (20:24)
[2020-03-19] MEDS: hydrALAZINE 20 MG/ML VIAL SLOW IVP PRN (04:14)
[2020-03-19 04:44] LABS: #Eosinphils 0.1 thou/uL (0.0-0.7); #Monocytes 0.9 thou/uL (0.11-0.59); #Neutrophils 7.7 thou/uL (1.40-6.50); %Basophils 0.2 % (0.0-1.0); %Eosinophils 1.3 % (0.0-10.0); %Lymphocytes 9.8 % (21.0-51.0); %Monocytes 8.9 % (0.0-10.0); %Neutrophils 79.8 % (42.0-75.0); Hemoglobin 11.8 g/dL (14.0-18.0); Mean Corpuscular HGB CONC 32.2 g/dL (32.0-36.0); Mean Corpuscular Hemoglobin 40.1 pg (27.0-31.0); Mean Platelet Volume 8.8 fL (7.4-10.4); Platelet Count 167 thou/uL (130-400); Red Blood Cell (RBC) Count 2.94 mill/uL (4.70-6.10); White Blood Cell (WBC) Count 9.7 thou/uL (4.8-10.8)
[2020-03-19 05:06] LABS: Anion Gap 16 mmol/L (10-20); BUN (Urea Nitrogen) 40 mg/dL (8.4-25.7); Calc. Creatinine Clearance 10 mL/min (70-130); Calcium 8.1 mg/dL (7.8-10.44); Carbon Dioxide 25 mmol/L (23-31); Chloride 99 mmol/L (98-107); Estimated GFR-MDRD 11; Glucose 121 mg/dL (83-110); Potassium 4.1 mmol/L (3.5-5.1); Sodium 136 mmol/L (136-145)
[2020-03-19] MEDS: Senokot S 8.6-50 MG TAB PO SCH ×2 (10:33→20:20)
[2020-03-19] MEDS: Saccharomyces boulardii 250 MG CAP PO SCH (10:33)
[2020-03-19] MEDS: Calcitriol 0.25 MCG CAP PO SCH (10:33)
[2020-03-19] MEDS: NIFEdipine XL 30 MG TAB PO SCH (10:34)
[2020-03-19] MEDS: Doxycycline 100 MG CAP PO SCH ×2 (10:34→20:23)
[2020-03-19] MEDS: Acetaminophen 325 MG TAB PO SCH ×3 (10:34→20:20)
[2020-03-19] MEDS: Clopidogrel Bisulfate 75 MG TAB PO SCH (10:34)
[2020-03-19] MEDS: Aspirin 81 mg Enteric Coated Tablet PO SCH (10:34)
[2020-03-19] MEDS: hydrALAZINE 25 MG TAB PO SCH ×3 (10:34→20:22)
[2020-03-19] MEDS: Carvedilol 25 MG TAB PO SCH ×2 (10:35→16:26)
[2020-03-19] MEDS: Finasteride 5 MG TAB PO SCH (10:35)
[2020-03-19] MEDS: Ferrous Sulfate 325 MG TAB PO SCH ×2 (10:36→16:27)
--- NOTE | 2020-03-19 13:09 | PRG ---
DATE OF SERVICE: 03/19/2020 SUBJECTIVE: Mr. Mcintosh is a 79-year-old male with ESRD, who was admitted for mental status change. A comprehensive neurological workup was essentially negative. Confusion is probably from metabolic encephalopathy versus a drug-induced side effect-baclofen. He is off baclofen. He is less confused this morning. He voices no new complaints, no chest pain or shortness of breath. OBJECTIVE: VITAL SIGNS: Blood pressure 166/72, heart rate 60, respiratory rate 18, temperature 96.8, O2 saturation 97% on 2 L. GENERAL: The patient is sleeping, but arousable and comfortable. SKIN: Adequate turgor. HEENT: He has pinkish conjunctivae. Anicteric sclerae. NECK: No neck mass. No carotid bruits. No JVD. CHEST: No deformities. LUNGS: Clear breath sounds. No wheezing. No crackles. HEART: Normal sinus rhythm. No murmurs, gallops, or rubs. ABDOMEN: Globular, soft, nontender. No masses. EXTREMITIES: No edema. No deformities. MEDICATIONS: On March 19, 2020, were reviewed. LABORATORY DATA: On March 19, 2020; white count 9.7, hemoglobin 11.8. Sodium 136, potassium 4.1, chloride 99, carbon dioxide 25, BUN 40, creatinine 5.01, glucose 121, calcium 8.1. ASSESSMENT AND PLAN: 1. End-stage renal disease, stable. No indication for an emergent hemodialysis today. Tolerating dialysis. We will continue current Friday, Friday, and Friday hemodialysis regimen with this patient. 2. Confusion-possible metabolic encephalopathy versus drug induced from the baclofen. Currently, is improving mentation. Continue supportive care. We will recheck CBC and basic metabolic profile in a.m. Job ID: [id number]
[2020-03-19] MEDS ORDERED: Sodium Chloride 0.9% 250 ML IV SCH (13:15)
[2020-03-19] MEDS: HumaLOG 300 UNITS/3 ML VIAL SC PRN ×2 (13:33→18:20)
--- NOTE | 2020-03-19 19:26 | PDOC.HOSPP ---
- Subjective Encounter Date: 03/19/20 Encounter Time: 14:00 Subjective: Patient seen and examined for encephalopathy. Mentation improving. Son at the bedside. Events noted. Denies any new focal deficit or chest pain. - Objective Vital Signs & Weight: Vital Signs (12 hours) Temp Pulse Resp BP BP BP Pulse Ox 03/19/20 16:11 97.9 F 58 L 18 124/59 L 98 03/19/20 12:13 96.2 F L 60 16 102/53 L 97 03/19/20 10:34 60 166/72 H 03/19/20 07:50 96.8 F L 60 18 164/72 H 97 Weight Admit Weight 147 lb 1.6 oz Weight 126 lb 4.944 oz I&O: 03/18/20 03/19/20 03/20/20 06:59 06:59 06:59 Intake Total 820 620 600 Output Total 2400 0 Balance -1580 620 600 Result Diagrams: 03/19/20 04:34 03/19/20 04:34 Additional Labs: Accuchecks 03/19/20 03/19/20 03/19/20 16:08 11:28 05:38 POC Glucose 275 H 180 H 113 H 03/18/20 20:43 POC Glucose 199 H Hospitalist ROS - Medication Medications: Active Medications Generic Name Dose Route Start Last Admin Trade Name Freq PRN Reason Stop Dose Admin Acetaminophen 650 mg 03/11/20 17:26 03/18/20 16:19 Tylenol PO 650 mg Q4H PRN Administration Headache/Fever/Mild Pain (1-3) Acetaminophen 650 mg 03/18/20 21:00 03/19/20 16:27 Tylenol PO 650 mg TID LINDA Administration Aspirin 81 mg 03/15/20 09:00 03/19/20 10:34 Ecotrin PO 81 mg DAILY [facility] Administration Calcitriol 0.25 mcg 03/12/20 09:00 03/19/20 10:33 Rocaltrol PO 0.25 mcg DAILY [facility] Administration Carvedilol 12.5 mg 03/14/20 17:00 03/19/20 16:26 Coreg PO 12.5 mg BID-WM [facility] Administration Cefdinir 300 mg 03/15/20 21:00 03/18/20 20:24 Omnicef PO 300 mg HS [facility] Administration Clopidogrel Bisulfate 75 mg 03/13/20 09:00 03/19/20 10:34 Plavix PO 75 mg DAILY [facility] Administration Doxycycline Hyclate 100 mg 03/17/20 21:00 03/19/20 10:34 Vibramycin PO 100 mg BID [facility] Administration Ferrous Sulfate 325 mg 03/12/20 08:00 03/19/20 16:27 Feosol PO 325 mg BID-WM [facility] Administration Finasteride 5 mg 03/12/20 09:00 03/19/20 10:35 Proscar PO 5 mg DAILY [facility] Administration Hydralazine HCl 10 mg 03/12/20 10:08 03/19/20 04:14 Apresoline SLOW IVP 10 mg Q4H PRN Administration SBP GREATER THAN 160 Hydralazine HCl 25 mg 03/15/20 21:00 03/19/20 16:27 Apresoline PO Not Given TID [facility] Insulin Human Lispro 0 units 03/11/20 17:26 03/19/20 18:20 Humalog SC 4 unit .MILD SLIDING SCALE PRN Administration Mild Correctional Scale Insulin Human Lispro 0 units 03/11/20 23:02 03/17/20 20:33 Humalog SC 2 unit .BEDTIME SLIDING SC PRN Administration Bedtime Correctional Scale Isosorbide Mononitrate 60 mg 03/12/20 09:00 03/19/20 10:34 Imdur PO 60 mg DAILY [facility] Administration Labetalol HCl 10 mg 03/12/20 10:04 03/13/20 21:23 Normodyne SLOW IVP 10 mg Q1H PRN Administration Systolic BP > 180 Nicotine 7 mg 03/16/20 15:28 03/18/20 20:24 Nicoderm Patch TD 7 mg Q24HR PRN Administration Smoking Cessation Nifedipine 30 mg 03/12/20 09:00 03/19/20 10:34 Procardia Xl PO 30 mg DAILY [facility] Administration Saccharomyces Boulardii 250 mg 03/18/20 09:00 03/19/20 10:33 Florastor PO 250 mg DAILY [facility] Administration Senna/Docusate Sodium 2 tab 03/12/20 21:00 03/19/20 10:33 Senokot S PO 2 tab BID [facility] Administration Sodium Chloride 10 ml 03/12/20 10:04 03/16/20 20:00 Flush - Normal Saline IVF 10 ml PRN PRN Administration Saline Flush Hosp A/P - Plan Toxic metabolic encephalopathy probably due to recent use of baclofen vs UTI vs suspected pneumonia ?Aspiration Rhabdomyolysis Nonsustained ventricular tachycardia Coronary artery disease status post stent placement Chronic systolic heart failure Peripheral vascular disease End-stage renal disease on hemodialysis Diabetes mellitus type II Hypertension Metabolic acidosis 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 Blood pressure dropped earlier requiring 250 mL of IV fluid bolus. Continue to monitor closely. Dialysis per nephrology. Patient is stable for discharge awaiting placement. 03/18 Continue antibiotics. Continue antiplatelet. Continue current hypertensive medications. Continue beta-blockers. Continue other medications as above. Dialysis per nephrology await placement. 03/17 Continue Omnicef. Add doxycycline. Mentation gradually improving. Continue current antihypertensive medication. Continue aspirin with Plavix. Await placement. Heparin on hold due to significant skin bruising. Dialysis per nephrology. 03/16 I discussed with patient's primary mine administrator supervisor Dr. Salgado. Will need event monitor at [place]. Continue dialysis and other medications as above. Will hold subcu heparin for now due to bruising and high risk of bleeding while on aspirin and Plavix. Add nicotine patch as needed. A.m. labs 03/15 Replace potassium. Discontinue vancomycinI verified with infectious disease. Change ceftriaxone to p.o. Await records from patient's mine administrator supervisor. Continue carvedilol. Resume hydralazine at low-dose. Continue nitrates. Continue aspirin and Plavix. long-term facility placement. A.m. labs. CK improving. I discussed with cardiology. 03/14 Continue empiric antibiotics. Discontinue IV hypertensive medications. EEG negative. Discontinue IV fluids. Continue sliding scale. Continue carvedilol. Patient is on aspirin/Plavix at home which will be restarted. Dialysis per nephrology. long-term facility placement. Plan discussed with the son. 03/13 Continue empiric antibiotic, continue rectal aspirin, unable to tolerate oral medication including Plavix. Obtain records from Dr. SALGADO office. MRI brain negative. Repeat chest x-ray reviewed. CK improving. Await cardio, neuro and infectious disease input. Dialysis per nephrology. Continue IV medications until patient able to tolerate oral medications. A.m. labs. We will try to place NG tube today. Continue sliding scale. Continue other medications as above. 03/12 Continue ceftriaxone, add vancomycin, monitor vancomycin level, continue aspirin , await urine cultures, dialysis per nephrology, speech therapy evaluation start IV labetalol due to inability to take po meds, recheck chest x-ray in a.m. , consult cardiology, add echocardiogram, labs in a.m Plan discussed with patient's son over the phone.Consider brain MRI if mentation does not improve. Please note that patient has 2 different medical record number. For previous records please refer to
[2020-03-19] MEDS: Cefdinir 300 MG CAP PO SCH (20:21)
[2020-03-20 04:49] LABS: #Basophils 0.1 thou/uL (0.0-0.2); #Eosinphils 0.2 thou/uL (0.0-0.7); #Lymphocytes 1.3 thou/uL (1.20-3.40); #Monocytes 0.9 thou/uL (0.11-0.59); #Neutrophils 8.2 thou/uL (1.40-6.50); %Basophils 0.5 % (0.0-1.0); %Eosinophils 1.9 % (0.0-10.0); %Lymphocytes 12.1 % (21.0-51.0); %Monocytes 8.4 % (0.0-10.0); %Neutrophils 77.1 % (42.0-75.0); Hemoglobin 10.8 g/dL (14.0-18.0); Mean Corpuscular HGB CONC 31.9 g/dL (32.0-36.0); Mean Corpuscular Hemoglobin 39.7 pg (27.0-31.0); Mean Platelet Volume 8.6 fL (7.4-10.4); Platelet Count 159 thou/uL (130-400); RBC Distribution Width 13.9 % (11.5-14.5); Red Blood Cell (RBC) Count 2.73 mill/uL (4.70-6.10); White Blood Cell (WBC) Count 10.7 thou/uL (4.8-10.8)
[2020-03-20 05:10] LABS: Anion Gap 19 mmol/L (10-20); BUN (Urea Nitrogen) 60 mg/dL (8.4-25.7); Calc. Creatinine Clearance 8 mL/min (70-130); Calcium 7.8 mg/dL (7.8-10.44); Carbon Dioxide 23 mmol/L (23-31); Chloride 98 mmol/L (98-107); Estimated GFR-MDRD 9; Glucose 90 mg/dL (83-110); Potassium 4.4 mmol/L (3.5-5.1); Sodium 136 mmol/L (136-145)
--- NOTE | 2020-03-20 09:18 | PRG ---
DATE OF SERVICE: 03/20/2020 SUBJECTIVE: Mr. Mcintosh is a 79-year-old male, followed up by the [facility] for a management of his ESRD as well as maintenance hemodialysis. He was initially admitted for confusion. Neurological workup was essentially negative. His confusion is now much improved. The feeling is that this could have also been contributed by his intake of baclofen. No new complaints today. He is undergoing hemodialysis. OBJECTIVE: VITAL SIGNS: Blood pressure is 168/78, heart rate 62, respiratory rate 20, temperature 97.5, and O2 saturation 92%. GENERAL: The patient is awake, comfortable, not in distress. SKIN: Adequate turgor. HEENT: Pinkish conjunctivae. Anicteric sclerae. No neck mass. No carotid bruits. No JVD. CHEST: No deformities. LUNGS: Clear breath sounds. No wheezing. No crackles. HEART: Normal sinus rhythm. No murmurs, gallops, or rubs. ABDOMEN: Globular, soft, and nontender. No masses. EXTREMITIES: No edema. No deformities. MEDICATIONS: On March 20, 2020, was reviewed. LABORATORY DATA: Laboratories of March 20, 2020; white count 10.7 and hemoglobin 10.8. Sodium 136, potassium 4.4, chloride 98, carbon dioxide 23, BUN 68, creatinine 5.91, glucose 90, and calcium 7.8. ASSESSMENT AND PLAN: 1. End-stage renal disease, stable. We will continue current Friday, Friday, and Friday hemodialysis regimen. Fluid removal only as tolerated. 2. Mental status change-metabolic encephalopathy/drug induced. Clinically improving over time. Continue supportive care. 3. Blood coag-negative bacteremia-currently the patient is on empiric antibiotics. Job ID: [id number]
[2020-03-20] MEDS: Acetaminophen 325 MG TAB PO SCH ×3 (09:27→21:28)
--- NOTE | 2020-03-20 11:22 | PDOC.HOSPP ---
- Subjective Encounter Date: 03/20/20 Encounter Time: 07:30 Subjective: Patient seen for follow-up regarding acute metabolic encephalopathy. He denies any chest pain or shortness of breath. - Objective Vital Signs & Weight: Vital Signs (12 hours) Temp Pulse Resp BP Pulse Ox 03/20/20 04:35 97.5 F L 62 20 168/78 H 92 L 03/20/20 00:19 97.8 F 58 L 18 136/63 94 L Weight Admit Weight 147 lb 1.6 oz Weight 131 lb 9.855 oz I&O: 03/19/20 03/20/20 03/21/20 06:59 06:59 06:59 Intake Total 620 1080 Output Total 0 Balance 620 1080 Result Diagrams: 03/20/20 04:18 03/20/20 04:18 Additional Labs: Accuchecks 03/20/20 03/20/20 03/19/20 11:05 05:17 20:32 POC Glucose 88 101 127 H 03/19/20 03/19/20 16:08 11:28 POC Glucose 275 H 180 H MAR and labs were reviewed by me. EKG Reviewed by me: Yes (Telemetry: Normal sinus rhythm) Hospitalist ROS - Review of Systems Cardiovascular: denies: chest pain, palpitations, orthopnea, paroxysmal noc. dyspnea, edema, light headedness Gastrointestinal: denies: nausea, vomiting, abdominal pain, diarrhea, constipation, melena, hematochezia - Medication Medications: Active Medications Generic Name Dose Route Start Last Admin Trade Name Freq PRN Reason Stop Dose Admin Acetaminophen 650 mg 03/11/20 17:26 03/18/20 16:19 Tylenol PO 650 mg Q4H PRN Administration Headache/Fever/Mild Pain (1-3) Acetaminophen 650 mg 03/18/20 21:00 03/20/20 09:27 Tylenol PO 650 mg TID [facility] Administration Aspirin 81 mg 03/15/20 09:00 03/19/20 10:34 Ecotrin PO 81 mg DAILY [facility] Administration Calcitriol 0.25 mcg 03/12/20 09:00 03/19/20 10:33 Rocaltrol PO 0.25 mcg DAILY [facility] Administration Carvedilol 12.5 mg 03/14/20 17:00 03/19/20 16:26 Coreg PO 12.5 mg BID-WM [facility] Administration Cefdinir 300 mg 03/15/20 21:00 03/19/20 20:21 Omnicef PO 300 mg HS [facility] Administration Clopidogrel Bisulfate 75 mg 03/13/20 09:00 03/19/20 10:34 Plavix PO 75 mg DAILY [facility] Administration Doxycycline Hyclate 100 mg 03/17/20 21:00 03/19/20 20:23 Vibramycin PO 100 mg BID [facility] Administration Ferrous Sulfate 325 mg 03/12/20 08:00 03/19/20 16:27 Feosol PO 325 mg BID-WM [facility] Administration Finasteride 5 mg 03/12/20 09:00 03/19/20 10:35 Proscar PO 5 mg DAILY [facility] Administration Hydralazine HCl 10 mg 03/12/20 10:08 03/19/20 04:14 Apresoline SLOW IVP 10 mg Q4H PRN Administration SBP GREATER THAN 160 Hydralazine HCl 25 mg 03/19/20 20:02 03/19/20 20:22 Apresoline PO Not Given TID [facility] Insulin Human Lispro 0 units 03/11/20 17:26 03/19/20 18:20 Humalog SC 4 unit .MILD SLIDING SCALE PRN Administration Mild Correctional Scale Insulin Human Lispro 0 units 03/11/20 23:02 03/17/20 20:33 Humalog SC 2 unit .BEDTIME SLIDING SC PRN Administration Bedtime Correctional Scale Isosorbide Mononitrate 60 mg 03/12/20 09:00 03/19/20 10:34 Imdur PO 60 mg DAILY [facility] Administration Labetalol HCl 10 mg 03/12/20 10:04 03/13/20 21:23 Normodyne SLOW IVP 10 mg Q1H PRN Administration Systolic BP > 180 Nicotine 7 mg 03/16/20 15:28 03/18/20 20:24 Nicoderm Patch TD 7 mg Q24HR PRN Administration Smoking Cessation Nifedipine 30 mg 03/12/20 09:00 03/19/20 10:34 Procardia Xl PO 30 mg DAILY [facility] Administration Saccharomyces Boulardii 250 mg 03/18/20 09:00 03/19/20 10:33 Florastor PO 250 mg DAILY [facility] Administration Senna/Docusate Sodium 2 tab 03/12/20 21:00 03/19/20 20:20 Senokot S PO 2 tab BID [facility] Administration Sodium Chloride 10 ml 03/12/20 10:04 03/16/20 20:00 Flush - Normal Saline IVF 10 ml PRN PRN Administration Saline Flush - Exam General Appearance: awake alert Eye: anicteric sclera ENT: no oropharyngeal lesions Neck: supple Heart: RRR Respiratory: CTAB Gastrointestinal: soft, non-tender Extremities: no clubbing Psychiatric: normal affect, normal behavior Hosp A/P - Plan Assessment: Toxic metabolic encephalopathy - probably due to recent use of baclofen Rhabdomyolysis Nonsustained ventricular tachycardia Coronary artery disease status post stent placement Chronic systolic heart failure Peripheral vascular disease End-stage renal disease on hemodialysis Diabetes mellitus type II Hypertension Metabolic acidosis 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 Dialysis per nephrology service. Discharge planning in progress. Prior to discharge, Dr. Salgado's office to be contacted so that they can arrange for event monitor as outpatient. LFTs improved today. Continue nicotine replacement therapy.
[2020-03-20] MEDS: Aspirin 81 mg Enteric Coated Tablet PO SCH (11:36)
[2020-03-20] MEDS: Calcitriol 0.25 MCG CAP PO SCH (11:36)
[2020-03-20] MEDS: Doxycycline 100 MG CAP PO SCH ×2 (11:36→21:28)
[2020-03-20] MEDS: Saccharomyces boulardii 250 MG CAP PO SCH (11:36)
[2020-03-20] MEDS: Clopidogrel Bisulfate 75 MG TAB PO SCH (11:37)
[2020-03-20] MEDS: Finasteride 5 MG TAB PO SCH (11:37)
[2020-03-20] MEDS: NIFEdipine XL 30 MG TAB PO SCH (11:37)
[2020-03-20] MEDS: hydrALAZINE 25 MG TAB PO SCH ×3 (11:38→21:28)
[2020-03-20] MEDS: Carvedilol 25 MG TAB PO SCH ×3 (11:39→19:49)
[2020-03-20] MEDS: Senokot S 8.6-50 MG TAB PO SCH ×2 (11:39→21:28)
[2020-03-20] MEDS: Ferrous Sulfate 325 MG TAB PO SCH ×2 (11:39→16:24)
[2020-03-20] MEDS: Carvedilol 6.25 MG TAB PO SCH ×2 (19:14→19:15)
[2020-03-20] MEDS: HumaLOG 300 UNITS/3 ML VIAL SC PRN ×2 (19:15→21:24)
[2020-03-20] MEDS: Cefdinir 300 MG CAP PO SCH (21:27)
[2020-03-21 04:43] LABS: #Basophils 0.1 thou/uL (0.0-0.2); #Eosinphils 0.1 thou/uL (0.0-0.7); #Monocytes 0.6 thou/uL (0.11-0.59); #Neutrophils 9.9 thou/uL (1.40-6.50); %Basophils 0.6 % (0.0-1.0); %Eosinophils 0.8 % (0.0-10.0); %Lymphocytes 8.4 % (21.0-51.0); %Monocytes 5.1 % (0.0-10.0); %Neutrophils 85.1 % (42.0-75.0); Hemoglobin 12.3 g/dL (14.0-18.0); Mean Corpuscular HGB CONC 30.7 g/dL (32.0-36.0); Mean Corpuscular Hemoglobin 38.6 pg (27.0-31.0); Mean Platelet Volume 8.8 fL (7.4-10.4); Platelet Count 172 thou/uL (130-400); RBC Distribution Width 13.6 % (11.5-14.5); Red Blood Cell (RBC) Count 3.17 mill/uL (4.70-6.10); White Blood Cell (WBC) Count 11.6 thou/uL (4.8-10.8)
[2020-03-21 05:12] LABS: Anion Gap 19 mmol/L (10-20); BUN (Urea Nitrogen) 36 mg/dL (8.4-25.7); Calc. Creatinine Clearance 12 mL/min (70-130); Calcium 8.3 mg/dL (7.8-10.44); Carbon Dioxide 25 mmol/L (23-31); Chloride 98 mmol/L (98-107); Estimated GFR-MDRD 14; Glucose 116 mg/dL (83-110); Potassium 4.5 mmol/L (3.5-5.1); Sodium 137 mmol/L (136-145)
--- NOTE | 2020-03-21 08:23 | PRG ---
DATE OF SERVICE: 03/21/2020 SUBJECTIVE: Mr. Mcintosh is a 79-year-old male with ESRD and currently on maintenance hemodialysis. We are following him up for management of his ESRD. He was initially admitted for mental status change secondary to metabolic encephalopathy. Neurological workup was essentially negative. This morning, he voices no new complaints. He denies any chest pain or shortness of breath. He is cognizant of the place, person. No acute events noted last night. He remains lethargic. OBJECTIVE: VITAL SIGNS: Blood pressure is 168/74, heart rate 50, respiratory rate 15, temperature 97.9, O2 saturation 92% on room air. GENERAL: Awake, lethargic, not in distress. SKIN: Decreased turgor. HEENT: Pinkish conjunctivae. Anicteric sclerae. No neck mass. No carotid bruits. No JVD. CHEST: No deformities. LUNGS: Clear breath sounds. HEART: Normal sinus rhythm. No murmurs. No gallops. No rubs. ABDOMEN: Globular, soft. Nontender. No masses. EXTREMITIES: No edema. No deformities. MEDICATIONS: Medications of March 21, 2020, were reviewed. LABORATORY DATA: Laboratories of March 21, 2020: Sodium 137, potassium 4.5, chloride 98, carbon dioxide 25, BUN 36, creatinine 4.09, calcium 8.3. White count 11.6, hemoglobin 12.3. ASSESSMENT AND PLAN: 1. End-stage renal disease, stable, tolerating current hemodialysis regimen. We will continue Friday, Friday, and Friday dialysis. Fluid removal only as tolerated. No changes will be made with his current dialysis regimen. There is no indication for any dialytic intervention. 2. Staph bacteremia. Currently, on antibiotics. 3. Failure to thrive. Continue supportive care. The patient may need fdc placement. We will recheck CBC and basic metabolic panel in a.m. Job ID: [id number]
[2020-03-21] MEDS: Acetaminophen 325 MG TAB PO SCH ×3 (08:40→21:12)
[2020-03-21] MEDS: Saccharomyces boulardii 250 MG CAP PO SCH (08:40)
[2020-03-21] MEDS: hydrALAZINE 25 MG TAB PO SCH ×3 (08:41→21:11)
[2020-03-21] MEDS: Aspirin 81 mg Enteric Coated Tablet PO SCH (08:41)
[2020-03-21] MEDS: Carvedilol 6.25 MG TAB PO SCH ×2 (08:41→21:11)
[2020-03-21] MEDS: NIFEdipine XL 30 MG TAB PO SCH (08:41)
[2020-03-21] MEDS: Ferrous Sulfate 325 MG TAB PO SCH ×2 (08:42→15:42)
[2020-03-21] MEDS: Calcitriol 0.25 MCG CAP PO SCH (08:42)
[2020-03-21] MEDS: Doxycycline 100 MG CAP PO SCH ×2 (08:42→21:12)
[2020-03-21] MEDS: Finasteride 5 MG TAB PO SCH (08:42)
[2020-03-21] MEDS: Clopidogrel Bisulfate 75 MG TAB PO SCH (08:42)
[2020-03-21] MEDS: Senokot S 8.6-50 MG TAB PO SCH ×2 (08:43→21:12)
[2020-03-21] MEDS: HumaLOG 300 UNITS/3 ML VIAL SC PRN ×2 (11:20→17:43)
--- NOTE | 2020-03-21 11:26 | PDOC.HOSPP ---
- Subjective Encounter Date: 03/21/20 Encounter Time: 07:30 Subjective: Follow-up visit for acute metabolic encephalopathy. Patient denies any chest pain or shortness of breath. - Objective Vital Signs & Weight: Vital Signs (12 hours) Temp Pulse Resp BP BP Pulse Ox 03/21/20 11:10 97.9 F 59 L 16 121/58 L 95 03/21/20 08:23 97.4 F L 65 17 172/76 H 92 L 03/21/20 03:45 97.9 F 50 L 15 168/74 H 92 L 03/21/20 01:02 94 L 03/21/20 00:00 97.8 F Weight Admit Weight 147 lb 1.6 oz Weight 126 lb 5.198 oz I&O: 03/20/20 03/21/20 03/22/20 06:59 06:59 06:59 Intake Total 1080 1130 Output Total 3000 Balance 8236 -4330 Result Diagrams: 03/21/20 04:12 03/21/20 04:12 Additional Labs: Accuchecks 03/21/20 03/21/20 03/20/20 11:11 06:18 20:02 POC Glucose 171 H 117 H 272 H 03/20/20 17:14 POC Glucose 260 H Labs and MAR reviewed by me. EKG Reviewed by me: Yes (Telemetry: Normal sinus rhythm) Hospitalist ROS - Review of Systems Cardiovascular: denies: chest pain, palpitations, orthopnea, paroxysmal noc. dyspnea, edema, light headedness Genitourinary: denies: dysuria, frequency, incontinence, hematuria, retention - Medication Medications: Active Medications Generic Name Dose Route Start Last Admin Trade Name Mary PRN Reason Stop Dose Admin Acetaminophen 650 mg 03/11/20 17:26 03/18/20 16:19 Tylenol PO 650 mg Q4H PRN Administration Headache/Fever/Mild Pain (1-3) Acetaminophen 650 mg 03/18/20 21:00 03/21/20 08:40 Tylenol PO 650 mg TID LINDA Administration Aspirin 81 mg 03/15/20 09:00 03/21/20 08:41 Ecotrin PO 81 mg DAILY [facility] Administration Calcitriol 0.25 mcg 03/12/20 09:00 03/21/20 08:42 Rocaltrol PO 0.25 mcg DAILY [facility] Administration Carvedilol 6.25 mg 03/21/20 09:00 03/21/20 08:41 Coreg PO 6.25 mg BID LINDA Administration Cefdinir 300 mg 03/15/20 21:00 03/20/20 21:27 Omnicef PO 300 mg HS LINDA Administration Clopidogrel Bisulfate 75 mg 03/13/20 09:00 03/21/20 08:42 Plavix PO 75 mg DAILY [facility] Administration Doxycycline Hyclate 100 mg 03/17/20 21:00 03/21/20 08:42 Vibramycin PO 100 mg BID LINDA Administration Ferrous Sulfate 325 mg 03/12/20 08:00 03/21/20 08:42 Feosol PO 325 mg BID-WM LINDA Administration Finasteride 5 mg 03/12/20 09:00 03/21/20 08:42 Proscar PO 5 mg DAILY [facility] Administration Hydralazine HCl 10 mg 03/12/20 10:08 03/19/20 04:14 Apresoline SLOW IVP 10 mg Q4H PRN Administration SBP GREATER THAN 160 Hydralazine HCl 25 mg 03/19/20 20:02 03/21/20 08:41 Apresoline PO 25 mg TID LINDA Administration Insulin Human Lispro 0 units 03/11/20 17:26 03/21/20 11:20 Humalog SC 2 unit .MILD SLIDING SCALE PRN Administration Mild Correctional Scale Insulin Human Lispro 0 units 03/11/20 23:02 03/20/20 21:24 Humalog SC 3 unit .BEDTIME SLIDING SC PRN Administration Bedtime Correctional Scale Isosorbide Mononitrate 60 mg 03/12/20 09:00 03/21/20 08:41 Imdur PO 60 mg DAILY [facility] Administration Labetalol HCl 10 mg 03/12/20 10:04 03/13/20 21:23 Normodyne SLOW IVP 10 mg Q1H PRN Administration Systolic BP > 180 Nicotine 7 mg 03/16/20 15:28 03/18/20 20:24 Nicoderm Patch TD 7 mg Q24HR PRN Administration Smoking Cessation Nifedipine 30 mg 03/12/20 09:00 03/21/20 08:41 Procardia Xl PO 30 mg DAILY [facility] Administration Saccharomyces Boulardii 250 mg 03/18/20 09:00 03/21/20 08:40 Florastor PO 250 mg DAILY [facility] Administration Senna/Docusate Sodium 2 tab 03/12/20 21:00 03/21/20 08:43 Senokot S PO Not Given BID LINDA Sodium Chloride 10 ml 03/12/20 10:04 03/16/20 20:00 Flush - Normal Saline IVF 10 ml PRN PRN Administration Saline Flush - Exam General Appearance: awake alert Eye: anicteric sclera ENT: moist mucosa Neck: supple Heart: RRR Respiratory: CTAB Gastrointestinal: soft, non-tender Extremities: no clubbing Musculoskeletal: no muscle wasting Psychiatric: normal affect, normal behavior, oriented to person Hosp A/P - Plan Assessment: Toxic metabolic encephalopathy - probably due to recent use of baclofen, could also be secondary to chronic alcohol abuse. 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 Dialysis per nephrology service. Discharge planning in progress. Awaiting insurance authorization for discharge to detention facility Prior to discharge, Dr. Salgado's office to be contacted so that they can arrange for event monitor as outpatient. LFTs improving Continue nicotine replacement therapy.
[2020-03-21] MEDS: Nicotine 7 MG PATCH TD PRN (15:43)
[2020-03-21] MEDS: Cefdinir 300 MG CAP PO SCH (21:11)
[2020-03-22] MEDS: Acetaminophen 325 MG TAB PO PRN (02:34)
[2020-03-22 04:22] LABS: #Eosinphils 0.2 thou/uL (0.0-0.7); #Lymphocytes 1.1 thou/uL (1.20-3.40); #Neutrophils 7.8 thou/uL (1.40-6.50); %Basophils 0.2 % (0.0-1.0); %Eosinophils 2.4 % (0.0-10.0); %Lymphocytes 10.8 % (21.0-51.0); %Monocytes 9.9 % (0.0-10.0); %Neutrophils 76.7 % (42.0-75.0); Hemoglobin 11.3 g/dL (14.0-18.0); Mean Corpuscular HGB CONC 31.5 g/dL (32.0-36.0); Mean Corpuscular Hemoglobin 39.2 pg (27.0-31.0); Mean Platelet Volume 8.9 fL (7.4-10.4); Platelet Count 183 thou/uL (130-400); RBC Distribution Width 13.6 % (11.5-14.5); Red Blood Cell (RBC) Count 2.87 mill/uL (4.70-6.10); White Blood Cell (WBC) Count 10.2 thou/uL (4.8-10.8)
[2020-03-22 04:40] LABS: Anion Gap 18 mmol/L (10-20); BUN (Urea Nitrogen) 65 mg/dL (8.4-25.7); Calc. Creatinine Clearance 10 mL/min (70-130); Calcium 8.1 mg/dL (7.8-10.44); Carbon Dioxide 26 mmol/L (23-31); Chloride 95 mmol/L (98-107); Estimated GFR-MDRD 11; Glucose 204 mg/dL (83-110); Potassium 4.7 mmol/L (3.5-5.1); Sodium 134 mmol/L (136-145)
[2020-03-22] MEDS: HumaLOG 300 UNITS/3 ML VIAL SC PRN ×2 (06:16→16:21)
--- NOTE | 2020-03-22 08:34 | PRG ---
DATE OF SERVICE: 03/22/2020 SUBJECTIVE: Mr. Mcintosh is a 79-year-old male, followed up by the Renal Service for his ESRD and maintenance hemodialysis. He was initially admitted for confusion from metabolic encephalopathy that may have been drug-induced. The patient is doing better. He is more cognitive. We are awaiting for long-term placement with this patient. No acute events noted. He is currently undergoing hemodialysis. OBJECTIVE: VITAL SIGNS: Blood pressure 183/79-before BP medications, heart rate 67, respiratory rate 15, temperature 98.2, O2 saturation 95% on room air. GENERAL EXAM: The patient is awake, alert, comfortable, not in distress. SKIN: Decreased turgor. HEENT: He has pinkish conjunctivae. Anicteric sclerae. NECK: No neck mass. No carotid bruits. No JVD. CHEST: No deformities. LUNGS: Clear breath sounds. HEART: Normal sinus rhythm. No murmur. No gallops. No rubs. ABDOMEN: Globular, soft. Nontender. No masses. EXTREMITIES: No edema. No deformities. MEDICATIONS: Medications of March 22, 2020, was reviewed. LABORATORY DATA: Laboratories of March 22, 2020; white count 10.2, hemoglobin 11.3. Sodium 134, potassium 4.7, chloride 95, carbon dioxide 26, BUN 65, creatinine 5.28, glucose 204, calcium 8.1. White count 10.2, hemoglobin 11.3. ASSESSMENT AND PLAN: 1. End-stage renal disease, stable. We will continue current hemodialysis regimen of Friday, Friday, and Friday. Fluid removal only as tolerated. 2. Borderline anemia. We will simply continue to observe it. We will continue to hold off any Epogen for the moment with the patient. 3. Secondary hyperparathyroidism. Recheck PTH as well as phosphorus in a.m. 4. Metabolic encephalopathy, resolved. Job ID: [id number]
[2020-03-22] MEDS: Acetaminophen 325 MG TAB PO SCH ×3 (10:55→21:08)
[2020-03-22] MEDS: hydrALAZINE 25 MG TAB PO SCH ×3 (11:59→21:08)
[2020-03-22] MEDS: Senokot S 8.6-50 MG TAB PO SCH ×2 (11:59→21:09)
[2020-03-22] MEDS: Saccharomyces boulardii 250 MG CAP PO SCH (11:59)
[2020-03-22] MEDS: Ferrous Sulfate 325 MG TAB PO SCH ×2 (11:59→16:17)
[2020-03-22] MEDS: Finasteride 5 MG TAB PO SCH (11:59)
[2020-03-22] MEDS: Calcitriol 0.25 MCG CAP PO SCH (12:00)
[2020-03-22] MEDS: Doxycycline 100 MG CAP PO SCH ×2 (12:00→21:08)
[2020-03-22] MEDS: Aspirin 81 mg Enteric Coated Tablet PO SCH (12:00)
[2020-03-22] MEDS: Clopidogrel Bisulfate 75 MG TAB PO SCH (12:00)
[2020-03-22] MEDS: Carvedilol 6.25 MG TAB PO SCH ×2 (12:00→21:08)
[2020-03-22] MEDS: NIFEdipine XL 30 MG TAB PO SCH (12:09)
--- NOTE | 2020-03-22 12:58 | PDOC.HOSPP ---
- Subjective Encounter Date: 03/22/20 Encounter Time: 12:00 Subjective: Patient seen for follow-up for toxic metabolic encephalopathy. He denies nausea , vomiting, diarrhea, abdominal pain or chest pain. - Objective Vital Signs & Weight: Vital Signs (12 hours) Temp Pulse Resp BP BP BP Pulse Ox 03/22/20 12:13 97 F L 61 18 139/63 98 03/22/20 12:09 61 139/63 03/22/20 12:00 139/63 03/22/20 11:59 67 139/63 03/22/20 07:48 98.2 F 67 15 183/79 H 03/22/20 04:00 98.1 F 64 18 169/74 H 95 Weight Admit Weight 147 lb 1.6 oz Weight 130 lb 9.6 oz I&O: 03/21/20 03/22/20 03/23/20 06:59 06:59 06:59 Intake Total 1130 1560 Output Total 3000 Balance -1870 1560 Result Diagrams: 03/22/20 03:50 03/22/20 03:50 Additional Labs: Accuchecks 03/22/20 03/22/20 03/21/20 12:48 05:53 20:38 POC Glucose 149 H 206 H 171 H 03/21/20 17:48 POC Glucose 231 H MAR, labs were reviewed by me EKG Reviewed by me: Yes Hospitalist ROS - Review of Systems ROS unobtainable: (Telemetry: Normal sinus rhythm) Cardiovascular: denies: chest pain, palpitations, orthopnea, edema, light headedness Gastrointestinal: denies: nausea, vomiting, abdominal pain, diarrhea, melena, hematochezia - Medication Medications: Active Medications Generic Name Dose Route Start Last Admin Trade Name Freq PRN Reason Stop Dose Admin Acetaminophen 650 mg 03/11/20 17:26 03/22/20 02:34 Tylenol PO 650 mg Q4H PRN Administration Headache/Fever/Mild Pain (1-3) Acetaminophen 650 mg 03/18/20 21:00 03/22/20 10:55 Tylenol PO 650 mg TID LINDA Administration Aspirin 81 mg 03/15/20 09:00 03/22/20 12:00 Ecotrin PO 81 mg DAILY [facility] Administration Calcitriol 0.25 mcg 03/12/20 09:00 03/22/20 12:00 Rocaltrol PO 0.25 mcg DAILY [facility] Administration Carvedilol 6.25 mg 03/21/20 09:00 03/22/20 12:00 Coreg PO 6.25 mg BID LINDA Administration Cefdinir 300 mg 03/15/20 21:00 03/21/20 21:11 Omnicef PO 300 mg HS LINDA Administration Clopidogrel Bisulfate 75 mg 03/13/20 09:00 03/22/20 12:00 Plavix PO 75 mg DAILY [facility] Administration Doxycycline Hyclate 100 mg 03/17/20 21:00 03/22/20 12:00 Vibramycin PO 100 mg BID LINDA Administration Ferrous Sulfate 325 mg 03/12/20 08:00 03/22/20 11:59 Feosol PO 325 mg BID-WM [facility] Administration Finasteride 5 mg 03/12/20 09:00 03/22/20 11:59 Proscar PO 5 mg DAILY [facility] Administration Hydralazine HCl 10 mg 03/12/20 10:08 03/19/20 04:14 Apresoline SLOW IVP 10 mg Q4H PRN Administration SBP GREATER THAN 160 Hydralazine HCl 25 mg 03/19/20 20:02 03/22/20 11:59 Apresoline PO 25 mg TID LINDA Administration Insulin Human Lispro 0 units 03/11/20 17:26 03/22/20 06:16 Humalog SC 3 unit .MILD SLIDING SCALE PRN Administration Mild Correctional Scale Insulin Human Lispro 0 units 03/11/20 23:02 03/20/20 21:24 Humalog SC 3 unit .BEDTIME SLIDING SC PRN Administration Bedtime Correctional Scale Isosorbide Mononitrate 60 mg 03/12/20 09:00 03/22/20 12:00 Imdur PO 60 mg DAILY [facility] Administration Labetalol HCl 10 mg 03/12/20 10:04 03/13/20 21:23 Normodyne SLOW IVP 10 mg Q1H PRN Administration Systolic BP > 180 Nicotine 7 mg 03/16/20 15:28 03/21/20 15:43 Nicoderm Patch TD 7 mg Q24HR PRN Administration Smoking Cessation Nifedipine 30 mg 03/12/20 09:00 03/22/20 12:09 Procardia Xl PO 30 mg DAILY [facility] Administration Saccharomyces Boulardii 250 mg 03/18/20 09:00 03/22/20 11:59 Florastor PO 250 mg DAILY [facility] Administration Senna/Docusate Sodium 2 tab 03/12/20 21:00 03/22/20 11:59 Senokot S PO 2 tab BID LINDA Administration Sodium Chloride 10 ml 03/12/20 10:04 03/16/20 20:00 Flush - Normal Saline IVF 10 ml PRN PRN Administration Saline Flush - Exam General Appearance: awake alert Eye: anicteric sclera ENT: moist mucosa Neck: supple Heart: RRR Respiratory: CTAB Gastrointestinal: soft, non-tender Extremities: no edema Musculoskeletal: normal tone Psychiatric: normal affect, normal behavior Hosp A/P - Plan Assessment: Toxic metabolic encephalopathy - probably due to recent use of baclofen, could also be secondary to chronic alcohol abuse. 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 Patient had dialysis today Discharge planning in progress. Awaiting insurance authorization for discharge to half-way facility Prior to discharge, Dr. Salgado's office to be contacted so that they can arrange for event monitor as outpatient. LFTs improving Patient is on nicotine replacement therapy.
[2020-03-22] MEDS: Nicotine 7 MG PATCH TD PRN (19:36)
[2020-03-22] MEDS: Cefdinir 300 MG CAP PO SCH (21:08)
[2020-03-23 04:38] LABS: #Basophils 0.1 thou/uL (0.0-0.2); #Eosinphils 0.1 thou/uL (0.0-0.7); #Lymphocytes 1.4 thou/uL (1.20-3.40); #Neutrophils 7.8 thou/uL (1.40-6.50); %Basophils 0.8 % (0.0-1.0); %Eosinophils 1.2 % (0.0-10.0); %Lymphocytes 13.8 % (21.0-51.0); %Monocytes 9.3 % (0.0-10.0); Mean Corpuscular HGB CONC 31.3 g/dL (32.0-36.0); Mean Corpuscular Hemoglobin 38.8 pg (27.0-31.0); Mean Platelet Volume 8.4 fL (7.4-10.4); Platelet Count 210 thou/uL (130-400); RBC Distribution Width 13.2 % (11.5-14.5); Red Blood Cell (RBC) Count 2.84 mill/uL (4.70-6.10); White Blood Cell (WBC) Count 10.4 thou/uL (4.8-10.8)
[2020-03-23 04:54] LABS: Phosphorus 3.7 mg/dL (2.3-4.7)
[2020-03-23] MEDS: Senokot S 8.6-50 MG TAB PO SCH ×2 (08:28→21:00)
[2020-03-23] MEDS: Aspirin 81 mg Enteric Coated Tablet PO SCH (08:29)
[2020-03-23] MEDS: hydrALAZINE 25 MG TAB PO SCH ×3 (08:29→20:50)
[2020-03-23] MEDS: Doxycycline 100 MG CAP PO SCH ×2 (08:29→20:50)
[2020-03-23] MEDS: Carvedilol 6.25 MG TAB PO SCH ×2 (08:30→20:50)
[2020-03-23] MEDS: Acetaminophen 325 MG TAB PO SCH ×3 (08:30→20:50)
[2020-03-23] MEDS: NIFEdipine XL 30 MG TAB PO SCH (08:30)
[2020-03-23] MEDS: Calcitriol 0.25 MCG CAP PO SCH (08:30)
[2020-03-23] MEDS: Finasteride 5 MG TAB PO SCH (08:30)
[2020-03-23] MEDS: Clopidogrel Bisulfate 75 MG TAB PO SCH (08:30)
[2020-03-23] MEDS: Ferrous Sulfate 325 MG TAB PO SCH ×2 (08:30→17:25)
[2020-03-23] MEDS: Saccharomyces boulardii 250 MG CAP PO SCH (08:31)
--- NOTE | 2020-03-23 08:55 | PRG ---
DATE OF SERVICE: 03/23/2020 SUBJECTIVE: Mr. Mcintosh is a 79-year-old white male with ESRD, was initially admitted for confusion secondary to metabolic encephalopathy. We also felt that this could have been precipitated by his intake of baclofen. No new complaints today. His mentation is much improved. We are awaiting alf placement. OBJECTIVE: VITAL SIGNS: Blood pressure is 136/64, heart rate 65, respiratory rate 14, temperature 97.5, O2 saturation 94%. GENERAL: Noted to be awake, alert, comfortable, not in overt distress. SKIN: Adequate turgor. HEENT: Pinkish conjunctivae, anicteric sclerae. NECK: No neck mass. No carotid bruits. No JVD. CHEST: No deformities. LUNGS: Clear breath sounds. No wheezing. No crackles. HEART: Normal sinus rhythm. No murmur. No gallops. No rubs. ABDOMEN: Globular, soft, nontender, no masses. EXTREMITIES: No edema, no deformities. MEDICATIONS: Medications of March 23, 2020, were reviewed. LABORATORY DATA: March 23, 2020, white count 10.4, hemoglobin 11. March 22, 2020, sodium 134, potassium 4.7, chloride 95, carbon dioxide 26, BUN 65, creatinine 5.28, calcium 9.1. ASSESSMENT AND PLAN: 1. End-stage renal disease, stable, tolerating hemodialysis regimen. Fluid removal is also being tolerated. No changes will be made with his current hemodialysis regimen. We will continue current Friday, Friday, and Friday dialysis. Today I examined the patient. There is no indication for any emergent hemodialysis. 2. Metabolic encephalopathy/confusion, much improved-most likely drug induced. Neurological workup was done, which was essentially negative. 3. Chronic anemia. No indication to restart Epogen for the moment. Awaiting alf placement. Job ID: [id number]
--- NOTE | 2020-03-23 10:10 | PDOC.HOSPP ---
- Subjective Encounter Date: 03/23/20 Encounter Time: 07:20 Subjective: Patient seen for follow-up regarding metabolic encephalopathy. Denies any complaints today. - Objective Vital Signs & Weight: Vital Signs (12 hours) Temp Pulse Resp BP BP BP Pulse Ox 03/23/20 08:30 65 136/64 03/23/20 08:29 65 136/64 03/23/20 07:41 97.5 F L 65 14 136/64 94 L 03/23/20 06:47 96 03/23/20 03:48 98.4 F 62 14 142/65 H 96 03/23/20 00:00 64 116/59 L Weight Admit Weight 147 lb 1.6 oz Weight 126 lb 9.232 oz I&O: 03/22/20 03/23/20 03/24/20 06:59 06:59 06:59 Intake Total 1560 1280 Output Total 2500 Balance 1560 -1220 Result Diagrams: 03/23/20 04:25 03/22/20 03:50 Additional Labs: Accuchecks 03/23/20 03/22/20 03/22/20 05:34 20:33 16:16 POC Glucose 124 H 129 H 235 H 03/22/20 12:48 POC Glucose 149 H MAR and labs reviewed by ks Hospitalist ROS - Review of Systems Cardiovascular: denies: chest pain, palpitations, orthopnea, paroxysmal noc. dyspnea, edema, light headedness Gastrointestinal: denies: nausea, vomiting, abdominal pain, melena, hematochezia - Medication Medications: Active Medications Generic Name Dose Route Start Last Admin Trade Name Freq PRN Reason Stop Dose Admin Acetaminophen 650 mg 03/11/20 17:26 03/22/20 02:34 Tylenol PO 650 mg Q4H PRN Administration Headache/Fever/Mild Pain (1-3) Acetaminophen 650 mg 03/18/20 21:00 03/23/20 08:30 Tylenol PO 650 mg TID LINDA Administration Aspirin 81 mg 03/15/20 09:00 03/23/20 08:29 Ecotrin PO 81 mg DAILY [facility] Administration Calcitriol 0.25 mcg 03/12/20 09:00 03/23/20 08:30 Rocaltrol PO 0.25 mcg DAILY [facility] Administration Carvedilol 6.25 mg 03/21/20 09:00 03/23/20 08:30 Coreg PO 6.25 mg BID LINDA Administration Cefdinir 300 mg 03/15/20 21:00 03/22/20 21:08 Omnicef PO 300 mg HS LINDA Administration Clopidogrel Bisulfate 75 mg 03/13/20 09:00 03/23/20 08:30 Plavix PO 75 mg DAILY [facility] Administration Doxycycline Hyclate 100 mg 03/17/20 21:00 03/23/20 08:29 Vibramycin PO 100 mg BID LINDA Administration Ferrous Sulfate 325 mg 03/12/20 08:00 03/23/20 08:30 Feosol PO 325 mg BID-WM [facility] Administration Finasteride 5 mg 03/12/20 09:00 03/23/20 08:30 Proscar PO 5 mg DAILY [facility] Administration Hydralazine HCl 10 mg 03/12/20 10:08 03/19/20 04:14 Apresoline SLOW IVP 10 mg Q4H PRN Administration SBP GREATER THAN 160 Hydralazine HCl 25 mg 03/19/20 20:02 03/23/20 08:29 Apresoline PO 25 mg TID LINDA Administration Insulin Human Lispro 0 units 03/11/20 17:26 03/22/20 16:21 Humalog SC 4 unit .MILD SLIDING SCALE PRN Administration Mild Correctional Scale Insulin Human Lispro 0 units 03/11/20 23:02 03/20/20 21:24 Humalog SC 3 unit .BEDTIME SLIDING SC PRN Administration Bedtime Correctional Scale Isosorbide Mononitrate 60 mg 03/12/20 09:00 03/23/20 08:30 Imdur PO 60 mg DAILY [facility] Administration Labetalol HCl 10 mg 03/12/20 10:04 03/13/20 21:23 Normodyne SLOW IVP 10 mg Q1H PRN Administration Systolic BP > 180 Nicotine 7 mg 03/16/20 15:28 03/22/20 19:36 Nicoderm Patch TD 7 mg Q24HR PRN Administration Smoking Cessation Nifedipine 30 mg 03/12/20 09:00 03/23/20 08:30 Procardia Xl PO 30 mg DAILY [facility] Administration Saccharomyces Boulardii 250 mg 03/18/20 09:00 03/23/20 08:31 Florastor PO 250 mg DAILY [facility] Administration Senna/Docusate Sodium 2 tab 03/12/20 21:00 03/23/20 08:28 Senokot S PO 2 tab BID [facility] Administration Sodium Chloride 10 ml 03/12/20 10:04 03/16/20 20:00 Flush - Normal Saline IVF 10 ml PRN PRN Administration Saline Flush - Exam General Appearance: awake alert Eye: anicteric sclera ENT: moist mucosa Neck: supple Heart: RRR Respiratory: CTAB Gastrointestinal: soft, non-tender Extremities: no cyanosis Skin: no rashes Psychiatric: normal affect, normal behavior Hosp A/P - Plan Assessment: Toxic metabolic encephalopathy -secondary to baclofen use Rhabdomyolysis, resolved Nonsustained ventricular tachycardia, resolved Coronary artery disease status post stent placement Chronic systolic heart failure Peripheral vascular disease End-stage renal disease on hemodialysis Diabetes mellitus type II Hypertension Metabolic acidosis 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 Plan: Patient slowly improving. Nephrology following for maintenance dialysis. Discharge planning in progress. Awaiting insurance authorization for discharge to snf facility Prior to discharge, Dr. Salgado's office to be contacted so that they can arrange for event monitor as outpatient. LFTs improving Continue nicotine replacement therapy.
--- NOTE | 2020-03-23 11:22 | PQF ---
[facility] Updated: CLINICAL DOCUMENTATION CLARIFICATION FORM: Dear Dr. Carranza Date: 03/23/20 Please exercise your independent, professional judgment in responding to the clarification form. Clinical indicators are provided on the bottom of this form for your review. Please check appropriate box(es) to clarify if the following diagnosis has been ruled in our ruled out: [ ] Ruled in diagnosis [ ] Continue to treat [ ] Resolved [ ] Ruled out diagnosis [ ] Improving [ ] Cannot rule out diagnosis [ ] Other diagnosis [ ] Unable to determine In addition, please specify: Present on Admission (POA): [ ] Yes [ ] No [ ] Unable to determine For continuity of documentation, please document condition throughout progress notes and discharge summary. Thank You. PN 03/19 - LADHA: SUSPECTED PNEUMONIA ?ASPIRATION CT CHEST 03/13: "RIGHT PLEURAL EFFUSION PARTIALLY OBSCURING UNDERLYING LUNG PARENCHYMA AT RIGHT BASE." "MILD CARDIOMEGALY AND MILD PULMONARY VENOUS CONGESTION" ER NOTE: "BREATH SOUNDS DIMINISHED" RISKS: ADVANCED AGE FOUND DOWN BY FAMILY AT HOME/EVALUATION FOR MENTAL STATUS CHANGES (ER NOTE) ST NOTE 03/16: "MILD CONSISTENT PHARYNGEAL WHEEZE AT BASELINE; SLOW SWALLOW INITIATION; OVERALL WEAK AND AGING SWALLOW FUNCTION " DEMENTIA (ST NOTE 03/16) TREATMENT: IV ROCEPHIN (ER) SPEECH THERAPY EVAL 03/16: PUREED DIET WITH HONEY THICK / ASPIRATION PRECAUTIONS FEEDER ASSIST FOR SAFETY/CUEING (ST THERAPY NOTE 03/16) OMNICEF (819-PRESENT) VIBRAMYCIN (03/17-PRESENT) CDS Signature: Kelsey Peace RN Phone #: [phone] Date: 03/23/20 This is a permanent part of the Medical Record [facility]
[2020-03-23] MEDS: HumaLOG 300 UNITS/3 ML VIAL SC PRN ×2 (12:20→20:50)
[2020-03-23] MEDS: Cefdinir 300 MG CAP PO SCH (20:50)
--- NOTE | 2020-03-24 08:48 | PRG ---
DATE OF SERVICE: 03/24/2020 SUBJECTIVE: Mr. Mcintosh is a 79-year-old male with ESRD and was initially admitted for mental status change secondary to metabolic encephalopathy. The confusion is now resolved. He is tolerating current dialysis regimen. No acute events noted. No new complaints. OBJECTIVE: VITAL SIGNS: Blood pressure 144/65, heart rate 59, respiratory rate 14, O2 saturation is 96%, temperature is 98.2. GENERAL: Awake, supine, comfortable, not in distress. SKIN: Adequate turgor. HEENT: He has pinkish conjunctivae. Anicteric sclerae. No neck mass. No carotid bruits. No JVD. CHEST: No deformities. LUNGS: Clear breath sounds. No wheezing. No crackles. HEART: Normal sinus rhythm. No murmurs, gallops, or rubs. ABDOMEN: Globular, soft, nontender. No masses. EXTREMITIES: No edema. No deformities. MEDICATIONS: March 24, 2020, reviewed. LABORATORY DATA: March 23, 2020, white count 10.4, hemoglobin is 11. March 24, 2020, glucose 93. March 22, 2020, BUN 65, creatinine 5.28, potassium 4.7. ASSESSMENT AND PLAN: 1. End-stage renal disease, stable, continuing Friday, Friday, and Friday dialysis. Fluid removal only as tolerated by the patient. 2. Congestive heart failure, clinically much improved. 3. Metabolic encephalopathy/drug overdose from baclofen-much improved mentation. Continue supportive care. 4. Awaiting [facility] placement. Job ID: [id number]
[2020-03-24] MEDS: Acetaminophen 325 MG TAB PO SCH ×3 (10:37→21:26)
--- NOTE | 2020-03-24 10:45 | PDOC.HOSPP ---
- Subjective Encounter Date: 03/24/20 Encounter Time: 07:30 Subjective: Patient seen for follow-up regarding toxic metabolic encephalopathy. He denies any complaints today. Awaiting senior living facility. - Objective Vital Signs & Weight: Vital Signs (12 hours) Temp Pulse Resp BP BP Pulse Ox 03/24/20 07:29 98.2 F 59 L 14 144/65 H 96 03/24/20 05:19 95 03/24/20 04:10 97.7 F 63 12 162/73 H 96 Weight Admit Weight 147 lb 1.6 oz Weight 129 lb 13.636 oz I&O: 03/23/20 03/24/20 03/25/20 06:59 06:59 06:59 Intake Total 1280 800 Output Total 2500 Balance -1220 800 Result Diagrams: 03/23/20 04:25 03/22/20 03:50 Additional Labs: Accuchecks 03/24/20 03/23/20 03/23/20 05:33 20:06 16:42 POC Glucose 93 288 H 76 03/23/20 11:09 POC Glucose 228 H MAR and labs reviewed by me EKG Reviewed by me: Yes (Telemetry: NSR) Hospitalist ROS - Review of Systems Constitutional: reports: weakness. denies: fever, chills, sweats, malaise Cardiovascular: denies: chest pain, palpitations, orthopnea, paroxysmal noc. dyspnea, edema, light headedness Genitourinary: denies: dysuria, frequency, incontinence, hematuria, retention - Medication Medications: Active Medications Generic Name Dose Route Start Last Admin Trade Name Freq PRN Reason Stop Dose Admin Acetaminophen 650 mg 03/11/20 17:26 03/22/20 02:34 Tylenol PO 650 mg Q4H PRN Administration Headache/Fever/Mild Pain (1-3) Acetaminophen 650 mg 03/18/20 21:00 03/24/20 10:37 Tylenol PO 650 mg TID LINDA Administration Aspirin 81 mg 03/15/20 09:00 03/23/20 08:29 Ecotrin PO 81 mg DAILY [facility] Administration Calcitriol 0.25 mcg 03/12/20 09:00 03/23/20 08:30 Rocaltrol PO 0.25 mcg DAILY [facility] Administration Carvedilol 6.25 mg 03/21/20 09:00 03/23/20 20:50 Coreg PO 6.25 mg BID [facility] Administration Cefdinir 300 mg 03/15/20 21:00 03/23/20 20:50 Omnicef PO 300 mg HS LINDA Administration Clopidogrel Bisulfate 75 mg 03/13/20 09:00 03/23/20 08:30 Plavix PO 75 mg DAILY [facility] Administration Doxycycline Hyclate 100 mg 03/17/20 21:00 03/23/20 20:50 Vibramycin PO 100 mg BID [facility] Administration Ferrous Sulfate 325 mg 03/12/20 08:00 03/23/20 17:25 Feosol PO 325 mg BID-WM [facility] Administration Finasteride 5 mg 03/12/20 09:00 03/23/20 08:30 Proscar PO 5 mg DAILY [facility] Administration Hydralazine HCl 10 mg 03/12/20 10:08 03/19/20 04:14 Apresoline SLOW IVP 10 mg Q4H PRN Administration SBP GREATER THAN 160 Hydralazine HCl 25 mg 03/19/20 20:02 03/23/20 20:50 Apresoline PO 25 mg TID [facility] Administration Insulin Human Lispro 0 units 03/11/20 17:26 03/23/20 12:20 Humalog SC 3 unit .MILD SLIDING SCALE PRN Administration Mild Correctional Scale Insulin Human Lispro 0 units 03/11/20 23:02 03/23/20 20:50 Humalog SC 3 unit .BEDTIME SLIDING SC PRN Administration Bedtime Correctional Scale Isosorbide Mononitrate 60 mg 03/12/20 09:00 03/23/20 08:30 Imdur PO 60 mg DAILY [facility] Administration Labetalol HCl 10 mg 03/12/20 10:04 03/13/20 21:23 Normodyne SLOW IVP 10 mg Q1H PRN Administration Systolic BP > 180 Nicotine 7 mg 03/16/20 15:28 03/22/20 19:36 Nicoderm Patch TD 7 mg Q24HR PRN Administration Smoking Cessation Nifedipine 30 mg 03/12/20 09:00 03/23/20 08:30 Procardia Xl PO 30 mg DAILY [facility] Administration Saccharomyces Boulardii 250 mg 03/18/20 09:00 03/23/20 08:31 Florastor PO 250 mg DAILY [facility] Administration Senna/Docusate Sodium 2 tab 03/12/20 21:00 03/23/20 21:00 Senokot S PO Not Given BID [facility] Sodium Chloride 10 ml 03/12/20 10:04 03/16/20 20:00 Flush - Normal Saline IVF 10 ml PRN PRN Administration Saline Flush - Exam General Appearance: awake alert Eye: anicteric sclera ENT: moist mucosa Neck: supple Heart: RRR Respiratory: no rales, normal chest expansion Gastrointestinal: soft, no guarding Psychiatric: normal affect, normal behavior Hosp A/P - Plan Assessment: Toxic metabolic encephalopathy -secondary to baclofen use Rhabdomyolysis, resolved Nonsustained ventricular tachycardia, resolved Coronary artery disease status post stent placement Chronic systolic heart failure Peripheral vascular disease End-stage renal disease on hemodialysis Diabetes mellitus type II Hypertension Metabolic acidosis 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 Plan: Patient is slowly improving, but is physically deconditioned. Dialysis per nephrology service. Plan to discharge to senior living facility once approved and bed is available. Prior to discharge, Dr. Salgado's office to be contacted so that they can arrange for event monitor as outpatient. LFTs improving Patient is on nicotine replacement therapy.
[2020-03-24] MEDS: Aspirin 81 mg Enteric Coated Tablet PO SCH (13:49)
[2020-03-24] MEDS: Doxycycline 100 MG CAP PO SCH ×2 (13:49→21:25)
[2020-03-24] MEDS: Ferrous Sulfate 325 MG TAB PO SCH ×2 (13:50→17:27)
[2020-03-24] MEDS: Finasteride 5 MG TAB PO SCH (13:51)
[2020-03-24] MEDS: Clopidogrel Bisulfate 75 MG TAB PO SCH (13:51)
[2020-03-24] MEDS: Carvedilol 6.25 MG TAB PO SCH ×2 (14:04→21:26)
[2020-03-24] MEDS: Calcitriol 0.25 MCG CAP PO SCH (14:05)
[2020-03-24] MEDS: hydrALAZINE 25 MG TAB PO SCH ×3 (15:51→21:25)
[2020-03-24] MEDS: Saccharomyces boulardii 250 MG CAP PO SCH (15:53)
[2020-03-24] MEDS: NIFEdipine XL 30 MG TAB PO SCH (16:05)
[2020-03-24] MEDS: Senokot S 8.6-50 MG TAB PO SCH ×2 (16:06→21:25)
[2020-03-24] MEDS: Cefdinir 300 MG CAP PO SCH (21:25)
[2020-03-24] MEDS: HumaLOG 300 UNITS/3 ML VIAL SC PRN (21:29)
[2020-03-25] MEDS: Acetaminophen 325 MG TAB PO PRN (03:36)
[2020-03-25] MEDS: Aspirin 81 mg Enteric Coated Tablet PO SCH (09:36)
[2020-03-25] MEDS: hydrALAZINE 25 MG TAB PO SCH ×3 (09:37→20:14)
[2020-03-25] MEDS: Ferrous Sulfate 325 MG TAB PO SCH ×2 (09:37→17:09)
[2020-03-25] MEDS: Saccharomyces boulardii 250 MG CAP PO SCH (09:39)
[2020-03-25] MEDS: NIFEdipine XL 30 MG TAB PO SCH (09:39)
[2020-03-25] MEDS: Clopidogrel Bisulfate 75 MG TAB PO SCH (09:40)
[2020-03-25] MEDS: Senokot S 8.6-50 MG TAB PO SCH ×2 (09:40→20:12)
[2020-03-25] MEDS: Calcitriol 0.25 MCG CAP PO SCH (09:41)
[2020-03-25] MEDS: Finasteride 5 MG TAB PO SCH (09:41)
[2020-03-25] MEDS: Carvedilol 6.25 MG TAB PO SCH ×2 (09:43→20:13)
[2020-03-25] MEDS: Acetaminophen 325 MG TAB PO SCH ×3 (09:43→20:13)
[2020-03-25] MEDS: Doxycycline 100 MG CAP PO SCH ×2 (09:43→20:13)
--- NOTE | 2020-03-25 11:30 | PRG ---
DATE OF SERVICE: 03/25/2020 SUBJECTIVE: Mr. Mcintosh is a 79-year-old male with ESRD-maintenance hemodialysis, admitted for mental status change. He was found to have metabolic encephalopathy and may have also overdosed on his baclofen. Since admission, the patient has been slowly improving with his mentation. He is awake, alert today. He voices no new complaints. The patient denies any chest pain or shortness of breath. OBJECTIVE: VITAL SIGNS: Blood pressure 165/65, heart rate 58, respiratory rate 17, temperature 98, O2 saturation 97%. GENERAL: Awake, alert, comfortable, not in distress. SKIN: Adequate turgor. HEENT: Pinkish conjunctivae, anicteric sclerae. NECK: No neck mass. No carotid bruits. No JVD. CHEST: No deformities. LUNGS: Clear breath sounds. HEART: Normal sinus rhythm. No murmurs, gallops, or rubs. ABDOMEN: Globular, soft, nontender. No masses. EXTREMITIES: No edema, no deformities. MEDICATIONS: March 25, 2020, was reviewed. LABORATORY DATA: March 23, 2020, white count 10.4, hemoglobin 11. March 25, 2020, glucose 128. ASSESSMENT AND PLAN: 1. End-stage renal disease, stable, continuing Friday, Friday, and Friday dialysis. Tolerating said treatment. Fluid removal is also being tolerated. 2. Metabolic encephalopathy, resolved. 3. Awaiting snf placement. Recheck base met, CBC in a.m. Job ID: [id number]
[2020-03-25] MEDS: HumaLOG 300 UNITS/3 ML VIAL SC PRN ×2 (12:40→17:22)
[2020-03-25] MEDS: Cefdinir 300 MG CAP PO SCH (20:13)
[2020-03-26 06:19] LABS: Anion Gap 18 mmol/L (10-20); BUN (Urea Nitrogen) 71 mg/dL (8.4-25.7); Calc. Creatinine Clearance 10 mL/min (70-130); Calcium 8.4 mg/dL (7.8-10.44); Carbon Dioxide 25 mmol/L (23-31); Chloride 94 mmol/L (98-107); Estimated GFR-MDRD 11; Glucose 158 mg/dL (83-110); Potassium 4.2 mmol/L (3.5-5.1); Sodium 133 mmol/L (136-145)
[2020-03-26 07:02] LABS: #Basophils 0.1 thou/uL (0.0-0.2); #Eosinphils 0.2 thou/uL (0.0-0.7); #Lymphocytes 1.4 thou/uL (1.20-3.40); #Monocytes 0.9 thou/uL (0.11-0.59); #Neutrophils 7.6 thou/uL (1.40-6.50); %Basophils 0.8 % (0.0-1.0); %Eosinophils 1.6 % (0.0-10.0); %Lymphocytes 14.1 % (21.0-51.0); %Monocytes 9.1 % (0.0-10.0); %Neutrophils 74.5 % (42.0-75.0); Mean Corpuscular Hemoglobin 39.2 pg (27.0-31.0); Mean Platelet Volume 8.4 fL (7.4-10.4); Platelet Count 227 thou/uL (130-400); RBC Distribution Width 12.9 % (11.5-14.5); Red Blood Cell (RBC) Count 2.81 mill/uL (4.70-6.10); White Blood Cell (WBC) Count 10.2 thou/uL (4.8-10.8)
[2020-03-26] MEDS: NIFEdipine XL 30 MG TAB PO SCH ×2 (07:53→07:56)
[2020-03-26] MEDS: Saccharomyces boulardii 250 MG CAP PO SCH (07:53)
[2020-03-26] MEDS: hydrALAZINE 25 MG TAB PO SCH ×3 (07:54→20:12)
[2020-03-26] MEDS: Calcitriol 0.25 MCG CAP PO SCH (07:54)
[2020-03-26] MEDS: Aspirin 81 mg Enteric Coated Tablet PO SCH (07:54)
[2020-03-26] MEDS: Finasteride 5 MG TAB PO SCH (07:54)
[2020-03-26] MEDS: Carvedilol 6.25 MG TAB PO SCH ×2 (07:54→20:11)
[2020-03-26] MEDS: Acetaminophen 325 MG TAB PO SCH ×3 (07:55→20:10)
[2020-03-26] MEDS: Ferrous Sulfate 325 MG TAB PO SCH ×2 (07:56→17:01)
[2020-03-26] MEDS: Clopidogrel Bisulfate 75 MG TAB PO SCH (07:57)
[2020-03-26] MEDS: Senokot S 8.6-50 MG TAB PO SCH ×3 (07:58→20:12)
[2020-03-26] MEDS: Doxycycline 100 MG CAP PO SCH ×2 (09:03→20:11)
--- NOTE | 2020-03-26 11:47 | PRG ---
DATE OF SERVICE: 03/26/2020 SUBJECTIVE: Mr. Mcintosh is a 79-year-old male with ESRD and currently on maintenance hemodialysis. He was initially admitted for mental status change. This was thought to be metabolic encephalopathy/drug overdose. Currently, mentation is much improved. He is tolerating the current dialysis regimen. We are awaiting snf placement. OBJECTIVE: VITAL SIGNS: Blood pressure 107/46, heart rate 67. GENERAL: The patient is awake, alert, comfortable, not in distress. SKIN: Adequate turgor. HEENT: Pinkish conjunctivae. Anicteric sclerae. NECK: No neck mass. No carotid bruits. No JVD. CHEST: No deformities. LUNGS: Clear breath sounds. HEART: Normal sinus rhythm. No murmur. No gallops. No rubs. ABDOMEN: Globular, soft, and nontender. No masses. EXTREMITIES: No edema. No deformities. MEDICATIONS: Of March 26, 2020, reviewed. LABORATORY DATA: Laboratories of March 26, 2020; white count 10.2, hemoglobin is 11. Sodium 133, potassium 4.2, chloride 94, carbon dioxide 25, BUN 51, creatinine 5.1, glucose 158, and calcium 8.4. ASSESSMENT AND PLAN: 1. End-stage renal disease, stable, tolerating current hemodialysis regimen. We will continue his Friday, Friday, and Friday dialysis. Again, fluid removal as tolerated by the patient. 2. Congestive heart failure, clinically much improved with fluid removal with dialysis. 3. Mental status change - resolved - secondary to metabolic encephalopathy with the contribution drug overdose. Neurological workup previously was said to be negative. We are awaiting snf placement with Mr. Mcintosh. Job ID: [id number]
[2020-03-26] MEDS: HumaLOG 300 UNITS/3 ML VIAL SC PRN ×2 (13:13→20:13)
--- NOTE | 2020-03-26 14:30 | PDOC.HOSPP ---
- Subjective Encounter Date: 03/26/20 Encounter Time: 14:25 Subjective: Seen for follow-up for encephalopathy. He denies chest pain or shortness of breath. - Objective Vital Signs & Weight: Vital Signs (12 hours) Temp Pulse Resp BP BP Pulse Ox 03/26/20 07:56 67 03/26/20 07:54 67 107/46 L 03/26/20 07:53 67 03/26/20 07:36 97.6 F 67 20 150/95 H 95 03/26/20 07:19 98.0 F 60 20 195/68 H 97 03/26/20 04:00 98.1 F 61 18 164/61 H 95 Weight Admit Weight 147 lb 1.6 oz Weight 126 lb 15.78 oz I&O: 03/25/20 03/26/20 03/27/20 06:59 06:59 06:59 Intake Total 1050 640 Balance 1050 640 Result Diagrams: 03/26/20 05:19 03/26/20 05:18 Additional Labs: Accuchecks 03/26/20 03/26/20 03/26/20 11:23 04:20 01:11 POC Glucose 178 H 172 H 188 H 03/25/20 03/25/20 20:23 15:47 POC Glucose 134 H 186 H I reviewed labs and MAR Hospitalist ROS - Review of Systems Constitutional: reports: weakness Cardiovascular: denies: chest pain, palpitations, orthopnea, paroxysmal noc. dyspnea, edema, light headedness Gastrointestinal: denies: nausea, vomiting, abdominal pain, diarrhea, constipation, melena, hematochezia - Medication Medications: Active Medications Generic Name Dose Route Start Last Admin Trade Name Yohanq PRN Reason Stop Dose Admin Acetaminophen 650 mg 03/11/20 17:26 03/25/20 03:36 Tylenol PO 650 mg Q4H PRN Administration Headache/Fever/Mild Pain (1-3) Acetaminophen 650 mg 03/18/20 21:00 03/26/20 07:55 Tylenol PO 650 mg TID LINDA Administration Aspirin 81 mg 03/15/20 09:00 03/26/20 07:54 Ecotrin PO 81 mg DAILY [facility] Administration Calcitriol 0.25 mcg 03/12/20 09:00 03/26/20 07:54 Rocaltrol PO 0.25 mcg DAILY [facility] Administration Carvedilol 6.25 mg 03/21/20 09:00 03/26/20 07:54 Coreg PO 6.25 mg BID [facility] Administration Clopidogrel Bisulfate 75 mg 03/13/20 09:00 03/26/20 07:57 Plavix PO 75 mg DAILY [facility] Administration Doxycycline Hyclate 100 mg 03/17/20 21:00 03/26/20 09:03 Vibramycin PO 100 mg BID [facility] Administration Ferrous Sulfate 325 mg 03/12/20 08:00 03/26/20 07:56 Feosol PO 325 mg BID[facility] Administration Finasteride 5 mg 03/12/20 09:00 03/26/20 07:54 Proscar PO 5 mg DAILY [facility] Administration Hydralazine HCl 10 mg 03/12/20 10:08 03/19/20 04:14 Apresoline SLOW IVP 10 mg Q4H PRN Administration SBP GREATER THAN 160 Hydralazine HCl 25 mg 03/19/20 20:02 03/26/20 07:54 Apresoline PO 25 mg TID [facility] Administration Insulin Human Lispro 0 units 03/11/20 17:26 03/26/20 13:13 Humalog SC 2 unit .MILD SLIDING SCALE PRN Administration Mild Correctional Scale Insulin Human Lispro 0 units 03/11/20 23:02 03/24/20 21:29 Humalog SC 4 unit .BEDTIME SLIDING SC PRN Administration Bedtime Correctional Scale Isosorbide Mononitrate 60 mg 03/12/20 09:00 03/26/20 07:53 Imdur PO 60 mg DAILY [facility] Administration Labetalol HCl 10 mg 03/12/20 10:04 03/13/20 21:23 Normodyne SLOW IVP 10 mg Q1H PRN Administration Systolic BP > 180 Nicotine 7 mg 03/16/20 15:28 03/22/20 19:36 Nicoderm Patch TD 7 mg Q24HR PRN Administration Smoking Cessation Nifedipine 30 mg 03/12/20 09:00 03/26/20 07:56 Procardia Xl PO 30 mg DAILY [facility] Administration Saccharomyces Boulardii 250 mg 03/18/20 09:00 03/26/20 07:53 Florastor PO 250 mg DAILY [facility] Administration Senna/Docusate Sodium 2 tab 03/12/20 21:00 03/26/20 09:03 Senokot S PO Not Given BID [facility] Sodium Chloride 10 ml 03/12/20 10:04 03/16/20 20:00 Flush - Normal Saline IVF 10 ml PRN PRN Administration Saline Flush - Exam General Appearance: NAD Eye: anicteric sclera ENT: normocephalic atraumatic Neck: supple Heart: RRR Respiratory: CTAB Gastrointestinal: soft, non-distended Extremities: no edema Skin: normal turgor Psychiatric: normal affect, normal behavior Hosp A/P - Plan Assessment: Physical deconditioning Toxic metabolic encephalopathy (secondary to baclofen use) Coronary artery disease Chronic systolic heart failure Peripheral vascular disease End-stage renal disease on hemodialysis Diabetes mellitus type II Hypertension Metabolic acidosis Chronic anemia due to end-stage renal disease History of left carotid endarterectomy Tobacco dependence Chronic pain syndrome Aspiration pneumonia, resolved, present on admission. Rhabdomyolysis, resolved Nonsustained ventricular tachycardia, resolved Plan: Patient is currently awaiting placement at [facility]. Plan to discharge to residential facility once approved and bed is available. Prior to discharge, Dr. Salgado's office to be contacted so that they can arrange for event monitor as outpatient. LFTs improving Patient is on nicotine replacement therapy.
[2020-03-26 15:17] LABS: ALT (SGPT) 21 U/L (8-55); AST (SGOT) 25 U/L (5-34); Albumin 2.9 g/dL (3.4-4.8); Alkaline Phosphatase 124 U/L (40-110); Bilirubin, Direct 0.2 mg/dL (0.1-0.3); Bilirubin, Total 0.4 mg/dL (0.2-1.2); Protein, Total 6.2 g/dL (5.8-8.1)
[2020-03-26] MEDS ORDERED: Cefdinir 300 MG CAP PO SCH (21:00)
[2020-03-26] MEDS: Acetaminophen 325 MG TAB PO PRN (23:37)
[2020-03-27] MEDS: Doxycycline 100 MG CAP PO SCH (08:23)
[2020-03-27] MEDS: Calcitriol 0.25 MCG CAP PO SCH (08:23)
[2020-03-27] MEDS: NIFEdipine XL 30 MG TAB PO SCH (08:24)
[2020-03-27] MEDS: Aspirin 81 mg Enteric Coated Tablet PO SCH (08:24)
[2020-03-27] MEDS: Carvedilol 6.25 MG TAB PO SCH ×2 (08:24→20:44)
[2020-03-27] MEDS: Saccharomyces boulardii 250 MG CAP PO SCH (08:24)
[2020-03-27] MEDS: Finasteride 5 MG TAB PO SCH (08:24)
[2020-03-27] MEDS: Acetaminophen 325 MG TAB PO SCH ×3 (08:24→20:45)
[2020-03-27] MEDS: Clopidogrel Bisulfate 75 MG TAB PO SCH (08:24)
[2020-03-27] MEDS: Ferrous Sulfate 325 MG TAB PO SCH ×2 (08:25→18:17)
[2020-03-27] MEDS: hydrALAZINE 25 MG TAB PO SCH ×3 (08:25→20:45)
--- NOTE | 2020-03-27 09:46 | PRG ---
DATE OF SERVICE: 03/27/2020 SUBJECTIVE: Mr. Den Mcintosh is a 79-year-old male with ESRD-on maintenance hemodialysis, was initially admitted for mental status change. His mentation has much improved. This was secondary to a metabolic encephalopathy/drug overdose. No new complaints today. He is doing well. We are awaiting retirement placement. Denies any chest pain or shortness of breath. OBJECTIVE: VITAL SIGNS: Blood pressure 163/65, heart rate 61, respiratory rate 18, temperature 98, O2 saturation 93%. GENERAL: The patient is awake, comfortable, not in overt distress. SKIN: Adequate turgor. HEENT: He has a pinkish conjunctivae. Anicteric sclerae. NECK: No neck mass. No carotid bruits. No JVD. CHEST: No deformities. LUNGS: Clear breath sounds. No wheezing. No crackles. HEART: Normal sinus rhythm. No murmur. No gallops. No rubs. ABDOMEN: Globular, soft, nontender. No masses. EXTREMITIES: No edema. No deformities. MEDICATIONS: On March 27, 2020, were reviewed. LABORATORY DATA: On March 26, 2020; white count 10.2, hemoglobin 11. Sodium 133, potassium 4.2, chloride 94, carbon dioxide 25, BUN 71, creatinine 5.1, glucose 158, calcium 8.4, albumin 2.9. ASSESSMENT AND PLAN: 1. End-stage renal disease, stable. We will continue current hemodialysis regimen Friday, Friday, and Friday. The patient has been scheduled for hemodialysis today. 2. Mental status change-resolved secondary to metabolic encephalopathy. Continue supportive care. Previous neurological workup was all negative. Job ID: [id number]
[2020-03-27] MEDS: HumaLOG 300 UNITS/3 ML VIAL SC PRN (12:28)
[2020-03-27] MEDS ORDERED: Pantoprazole 40 MG VIAL IVP SCH (13:15)
[2020-03-27 14:33] LABS: Hemoglobin 10.7 g/dL (14.0-18.0)
[2020-03-27 14:39] LABS: PTT 34.4 sec (22.9-36.1); Prothrombin Time 13.4 sec (12.0-14.7)
[2020-03-27] MEDS: Acetaminophen 325 MG TAB PO PRN (16:03)
[2020-03-27] MEDS: Senokot S 8.6-50 MG TAB PO SCH (20:45)
[2020-03-27] MEDS: Pantoprazole 40 MG VIAL IVP SCH (20:45)
[2020-03-27] MEDS: Polyethylene Glycol 3350 17 GM Packet PO SCH (20:45)
--- NOTE | 2020-03-27 22:09 | PDOC.HOSPP ---
- Subjective Encounter Date: 03/27/20 Encounter Time: 09:00 Subjective: Patient seen and examined for encephalopathy. Mentation at baseline. No fever or chills reported. - Objective Vital Signs & Weight: Vital Signs (12 hours) Temp Pulse Resp BP BP Pulse Ox 03/27/20 20:45 62 132/55 L 03/27/20 20:44 132/55 L 03/27/20 19:41 97.8 F 62 20 132/55 L 94 L 03/27/20 14:55 61 Weight Admit Weight 147 lb 1.6 oz Weight 126 lb 15.78 oz I&O: 03/26/20 03/27/20 03/28/20 06:59 06:59 06:59 Intake Total 640 1450 800 Output Total 0 Balance 640 1450 800 Result Diagrams: 03/28/20 08:14 03/28/20 08:14 Additional Labs: Accuchecks 03/27/20 03/27/20 03/27/20 19:19 17:38 11:25 POC Glucose 181 H 131 H 207 H 03/27/20 03/24/20 05:24 20:46 POC Glucose 145 H 303 H Hospitalist ROS - Review of Systems Cardiovascular: denies: chest pain, palpitations, orthopnea, paroxysmal noc. dyspnea, edema, light headedness, other Gastrointestinal: denies: nausea, vomiting, abdominal pain, diarrhea, constipation, melena, hematochezia, other - Medication Medications: Active Medications Generic Name Dose Route Start Last Admin Trade Name Freq PRN Reason Stop Dose Admin Acetaminophen 650 mg 03/11/20 17:26 03/27/20 16:03 Tylenol PO 650 mg Q4H PRN Administration Headache/Fever/Mild Pain (1-3) Acetaminophen 650 mg 03/18/20 21:00 03/27/20 20:45 Tylenol PO 650 mg TID [facility] Administration Aspirin 81 mg 03/15/20 09:00 03/27/20 08:24 Ecotrin PO 81 mg DAILY [facility] Administration Calcitriol 0.25 mcg 03/12/20 09:00 03/27/20 08:23 Rocaltrol PO 0.25 mcg DAILY [facility] Administration Calcium Carbonate 1,000 mg 03/12/20 10:04 03/26/20 20:12 Tums PO 1,000 mg Q4H PRN Administration Heartburn or Indigestion Carvedilol 6.25 mg 03/21/20 09:00 03/27/20 20:44 Coreg PO 6.25 mg BID [facility] Administration Clopidogrel Bisulfate 75 mg 03/13/20 09:00 03/27/20 08:24 Plavix PO 75 mg DAILY [facility] Administration Ferrous Sulfate 325 mg 03/12/20 08:00 03/27/20 18:17 Feosol PO 325 mg BID-WM [facility] Administration Finasteride 5 mg 03/12/20 09:00 03/27/20 08:24 Proscar PO 5 mg DAILY [facility] Administration Hydralazine HCl 10 mg 03/12/20 10:08 03/19/20 04:14 Apresoline SLOW IVP 10 mg Q4H PRN Administration SBP GREATER THAN 160 Hydralazine HCl 25 mg 03/19/20 20:02 03/27/20 20:45 Apresoline PO 25 mg TID [facility] Administration Insulin Human Lispro 0 units 03/11/20 17:26 03/27/20 12:28 Humalog SC 3 unit .MILD SLIDING SCALE PRN Administration Mild Correctional Scale Insulin Human Lispro 0 units 03/11/20 23:02 03/26/20 20:13 Humalog SC 2 unit .BEDTIME SLIDING SC PRN Administration Bedtime Correctional Scale Isosorbide Mononitrate 60 mg 03/12/20 09:00 03/27/20 08:23 Imdur PO 60 mg DAILY [facility] Administration Labetalol HCl 10 mg 03/12/20 10:04 03/13/20 21:23 Normodyne SLOW IVP 10 mg Q1H PRN Administration Systolic BP > 180 Nicotine 7 mg 03/16/20 15:28 03/22/20 19:36 Nicoderm Patch TD 7 mg Q24HR PRN Administration Smoking Cessation Nifedipine 30 mg 03/12/20 09:00 03/27/20 08:24 Procardia Xl PO 30 mg DAILY [facility] Administration Pantoprazole Sodium 40 mg 03/27/20 21:00 03/27/20 20:45 Protonix IVP 40 mg Q12HR [facility] Administration Polyethylene Glycol 17 gm 03/27/20 21:00 03/27/20 20:45 Miralax PO 17 gm HS [facility] Administration Saccharomyces Boulardii 250 mg 03/18/20 09:00 03/27/20 08:24 Florastor PO 250 mg DAILY [facility] Administration Senna/Docusate Sodium 2 tab 03/12/20 21:00 03/27/20 20:45 Senokot S PO 2 tab BID [facility] Administration Sodium Chloride 10 ml 03/12/20 10:04 03/16/20 20:00 Flush - Normal Saline IVF 10 ml PRN PRN Administration Saline Flush - Exam General Appearance: NAD Neck: supple, no JVD Heart: RRR, no gallops Respiratory: no wheezes, no rales Gastrointestinal: soft, non-distended Extremities: no cyanosis, no clubbing Hosp A/P - Plan DVT proph w/SCDs Toxic metabolic encephalopathy probably due to recent use of baclofen vs UTI vs suspected pneumonia ?Aspirationcompleted antibiotics Rhabdomyolysis Nonsustained ventricular tachycardia Coronary artery disease status post stent placement Chronic systolic heart failure Peripheral vascular disease End-stage renal disease on hemodialysis Diabetes mellitus type II Hypertension Metabolic acidosis 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 Await placement. Updatepatient had dark bowel movement. Will monitor H&H and check Hemoccult. Add IV PPIs. Recheck labs in a.m. 03/19 Continue beta-blockers, antibiotics and hypertensive medications. Blood pressure dropped earlier requiring 250 mL of IV fluid bolus. Continue to monitor closely. Dialysis per nephrology. Patient is stable for discharge awaiting placement. 03/18 Continue antibiotics. Continue antiplatelet. Continue current hypertensive medications. Continue beta-blockers. Continue other medications as above. Dialysis per nephrology await placement. 03/17 Continue Omnicef. Add doxycycline. Mentation gradually improving. Continue current antihypertensive medication. Continue aspirin with Plavix. Await placement. Heparin on hold due to significant skin bruising. Dialysis per nephrology. 03/16 I discussed with patient's primary wire spiral binder Dr. Salgado. Will need event monitor at [place]. Continue dialysis and other medications as above. Will hold subcu heparin for now due to bruising and high risk of bleeding while on aspirin and Plavix. Add nicotine patch as needed. A.m. labs 03/15 Replace potassium. Discontinue vancomycinI verified with infectious disease. Change ceftriaxone to p.o. Await records from patient's wire spiral binder. Continue carvedilol. Resume hydralazine at low-dose. Continue nitrates. Continue aspirin and Plavix. [facility] facility placement. A.m. labs. CK improving. I discussed with cardiology. 03/14 Continue empiric antibiotics. Discontinue IV hypertensive medications. EEG negative. Discontinue IV fluids. Continue sliding scale. Continue carvedilol. Patient is on aspirin/Plavix at home which will be restarted. Dialysis per nephrology. [facility] facility placement. Plan discussed with the son. 03/13 Continue empiric antibiotic, continue rectal aspirin, unable to tolerate oral medication including Plavix. Obtain records from Dr. SALGADO office. MRI brain negative. Repeat chest x-ray reviewed. CK improving. Await cardio, neuro and infectious disease input. Dialysis per nephrology. Continue IV medications until patient able to tolerate oral medications. A.m. labs. We will try to place NG tube today. Continue sliding scale. Continue other medications as above. 03/12 Continue ceftriaxone, add vancomycin, monitor vancomycin level, continue aspirin , await urine cultures, dialysis per nephrology, speech therapy evaluation start IV labetalol due to inability to take po meds, recheck chest x-ray in a.m. , consult cardiology, add echocardiogram, labs in a.m Plan discussed with patient's son over the phone.Consider brain MRI if mentation does not improve. Please note that patient has 2 different medical record number. For previous records please refer to
[2020-03-28] MEDS: Acetaminophen 325 MG TAB PO PRN (00:58)
[2020-03-28] MEDS: NIFEdipine XL 30 MG TAB PO SCH (08:35)
[2020-03-28] MEDS: Saccharomyces boulardii 250 MG CAP PO SCH (08:36)
[2020-03-28] MEDS: Clopidogrel Bisulfate 75 MG TAB PO SCH (08:36)
[2020-03-28] MEDS: Ferrous Sulfate 325 MG TAB PO SCH ×2 (08:36→16:39)
[2020-03-28] MEDS: Carvedilol 6.25 MG TAB PO SCH ×2 (08:36→21:03)
[2020-03-28] MEDS: Calcitriol 0.25 MCG CAP PO SCH (08:36)
[2020-03-28 08:37] LABS: #Basophils 0.1 thou/uL (0.0-0.2); #Eosinphils 0.2 thou/uL (0.0-0.7); #Lymphocytes 1.3 thou/uL (1.20-3.40); #Monocytes 0.6 thou/uL (0.11-0.59); %Basophils 1.4 % (0.0-1.0); %Eosinophils 2.5 % (0.0-10.0); %Lymphocytes 15.7 % (21.0-51.0); %Monocytes 7.2 % (0.0-10.0); %Neutrophils 73.3 % (42.0-75.0); Mean Corpuscular HGB CONC 32.3 g/dL (32.0-36.0); Mean Corpuscular Hemoglobin 39.5 pg (27.0-31.0); Mean Platelet Volume 7.8 fL (7.4-10.4); Platelet Count 228 thou/uL (130-400); RBC Distribution Width 12.6 % (11.5-14.5); Red Blood Cell (RBC) Count 2.78 mill/uL (4.70-6.10); White Blood Cell (WBC) Count 8.2 thou/uL (4.8-10.8)
[2020-03-28] MEDS: Pantoprazole 40 MG VIAL IVP SCH ×2 (08:37→21:03)
[2020-03-28] MEDS: Finasteride 5 MG TAB PO SCH (08:37)
[2020-03-28] MEDS: Senokot S 8.6-50 MG TAB PO SCH ×2 (08:37→21:09)
[2020-03-28] MEDS: hydrALAZINE 25 MG TAB PO SCH ×3 (08:37→21:03)
[2020-03-28] MEDS: Acetaminophen 325 MG TAB PO SCH ×3 (08:51→21:03)
[2020-03-28 08:57] LABS: Anion Gap 18 mmol/L (10-20); BUN (Urea Nitrogen) 49 mg/dL (8.4-25.7); Calc. Creatinine Clearance 12 mL/min (70-130); Calcium 8.3 mg/dL (7.8-10.44); Carbon Dioxide 26 mmol/L (23-31); Chloride 95 mmol/L (98-107); Estimated GFR-MDRD 14; Glucose 122 mg/dL (83-110); Potassium 4.5 mmol/L (3.5-5.1); Sodium 134 mmol/L (136-145)
--- NOTE | 2020-03-28 10:10 | PRG ---
DATE OF SERVICE: 03/28/2020 SUBJECTIVE: Mr. Mcintosh is a 79-year-old male with ESRD and followed up by the [facility] for his maintenance hemodialysis. He was initially admitted for mental status change. Neurological workup was negative. This was felt to be from metabolic encephalopathy as well as contribution of an overdose of his baclofen. He voices no new complaints. He is still feeling weak and tired. He is currently undergoing physical therapy. He denies any chest pain or shortness of breath. OBJECTIVE: VITAL SIGNS: Blood pressure 149/68, heart rate 59, respiratory rate 18, temperature 97.8, and O2 saturation 95%. GENERAL: The patient is awake, ambulatory, comfortable, not in distress. SKIN: Adequate turgor. HEENT: He has pinkish conjunctivae. Anicteric sclerae. No neck mass. No carotid bruits. No JVD. CHEST: No deformities. LUNGS: Clear breath sounds. HEART: Normal sinus rhythm. No murmur. No gallops. No rubs. ABDOMEN: Globular, soft, and nontender. No masses. EXTREMITIES: No edema. No deformities. MEDICATIONS: Of March 28, 2020, reviewed. LABORATORY DATA: Laboratories of March 28, 2020; white count 8.2 and hemoglobin 11. Sodium 134, potassium 4.5, chloride 95, carbon dioxide 26, BUN 49, creatinine 4.2, glucose 122, and calcium 8.3. ASSESSMENT AND PLAN: 1. End-stage renal disease-tolerating current hemodialysis regimen. Continue Friday, Friday, and Friday hemodialysis. The patient tolerated the fluid removal yesterday. There is no indication for any emergent hemodialysis today. 2. Status post metabolic encephalopathy. He is clinically much improved. He is mentating better. We are currently holding off any resumption of his baclofen. 3. Chronic anemia. We will simply observe. No indication for any Epogen today. 4. Awaiting long term placement. Job ID: [id number]
[2020-03-28 12:13] VITALS: BMI 20.5
[2020-03-28] MEDS: HumaLOG 300 UNITS/3 ML VIAL SC PRN (12:57)
[2020-03-28 13:44] LABS: Hemoglobin 11.1 g/dL (14.0-18.0); Platelet Count 213 thou/uL (130-400)
[2020-03-28] MEDS ORDERED: GoLYTELY 4,000 ml Bottle PO SCH (17:00)
--- NOTE | 2020-03-28 18:33 | PDOC.HOSPP ---
- Subjective Encounter Date: 03/28/20 Encounter Time: 14:00 Subjective: Patient seen and examined for altered mentation. Had another episode of dark stool earlier today. Was evaluated by gastroenterology service. - Objective Vital Signs & Weight: Vital Signs (12 hours) Temp Pulse Resp BP BP Pulse Ox 03/28/20 17:09 97.8 F 60 18 139/58 L 94 L 03/28/20 15:13 61 126/55 L 03/28/20 12:25 97.6 F 59 L 18 133/52 L 97 03/28/20 08:52 97.8 F 59 L 18 149/68 H 95 03/28/20 08:37 59 L 149/68 H 03/28/20 08:36 132/55 L 03/28/20 08:35 59 L 149/68 H 03/28/20 08:00 95 Weight Admit Weight 147 lb 1.6 oz Weight 126 lb 15.78 oz I&O: 03/27/20 03/28/20 03/29/20 06:59 06:59 06:59 Intake Total 1450 1280 Output Total 0 Balance 1450 1280 Result Diagrams: 03/28/20 13:22 03/28/20 08:14 Additional Labs: Accuchecks 03/28/20 03/28/20 03/28/20 16:42 12:55 04:21 POC Glucose 89 232 H 131 H 03/27/20 19:19 POC Glucose 181 H Hospitalist ROS - Review of Systems Respiratory: denies: cough, dry, shortness of breath, hemoptysis, SOB with excertion, pleuritic pain, sputum, wheezing, other Cardiovascular: denies: chest pain, palpitations, orthopnea, paroxysmal noc. dyspnea, edema, light headedness, other - Medication Medications: Active Medications Generic Name Dose Route Start Last Admin Trade Name Freq PRN Reason Stop Dose Admin Acetaminophen 650 mg 03/11/20 17:26 03/28/20 00:58 Tylenol PO 650 mg Q4H PRN Administration Headache/Fever/Mild Pain (1-3) Acetaminophen 650 mg 03/18/20 21:00 03/28/20 15:13 Tylenol PO 650 mg TID LINDA Administration Aspirin 81 mg 03/15/20 09:00 03/27/20 08:24 Ecotrin PO 81 mg DAILY LINDA Administration Calcitriol 0.25 mcg 03/12/20 09:00 03/28/20 08:36 Rocaltrol PO 0.25 mcg DAILY LINDA Administration Calcium Carbonate 1,000 mg 03/12/20 10:04 03/26/20 20:12 Tums PO 1,000 mg Q4H PRN Administration Heartburn or Indigestion Carvedilol 6.25 mg 03/21/20 09:00 03/28/20 08:36 Coreg PO 6.25 mg BID LINDA Administration Clopidogrel Bisulfate 75 mg 03/13/20 09:00 03/28/20 08:36 Plavix PO 75 mg DAILY [facility] Administration Ferrous Sulfate 325 mg 03/12/20 08:00 03/28/20 16:39 Feosol PO 325 mg BID-WM [facility] Administration Finasteride 5 mg 03/12/20 09:00 03/28/20 08:37 Proscar PO 5 mg DAILY [facility]DA Administration Hydralazine HCl 10 mg 03/12/20 10:08 03/19/20 04:14 Apresoline SLOW IVP 10 mg Q4H PRN Administration SBP GREATER THAN 160 Hydralazine HCl 25 mg 03/19/20 20:02 03/28/20 15:13 Apresoline PO 25 mg TID LINDA Administration Insulin Human Lispro 0 units 03/11/20 17:26 03/28/20 12:57 Humalog SC 3 unit .MILD SLIDING SCALE PRN Administration Mild Correctional Scale Insulin Human Lispro 0 units 03/11/20 23:02 03/26/20 20:13 Humalog SC 2 unit .BEDTIME SLIDING SC PRN Administration Bedtime Correctional Scale Isosorbide Mononitrate 60 mg 03/12/20 09:00 03/28/20 08:37 Imdur PO 60 mg DAILY [facility] Administration Labetalol HCl 10 mg 03/12/20 10:04 03/13/20 21:23 Normodyne SLOW IVP 10 mg Q1H PRN Administration Systolic BP > 180 Nicotine 7 mg 03/16/20 15:28 03/22/20 19:36 Nicoderm Patch TD 7 mg Q24HR PRN Administration Smoking Cessation Nifedipine 30 mg 03/12/20 09:00 03/28/20 08:35 Procardia Xl PO 30 mg DAILY [facility] Administration Pantoprazole Sodium 40 mg 03/27/20 21:00 03/28/20 08:37 Protonix IVP 40 mg Q12HR LINDA Administration Polyethylene Glycol 17 gm 03/27/20 21:00 03/27/20 20:45 Miralax PO 17 gm HS LINDA Administration Polyethylene Glycol/Electrolytes 4,000 ml 03/28/20 17:00 03/28/20 16:41 Golytely PO 03/28/20 23:00 4,000 ml 1700 LINDA Administration Saccharomyces Boulardii 250 mg 03/18/20 09:00 03/28/20 08:36 Florastor PO 250 mg DAILY [facility] Administration Senna/Docusate Sodium 2 tab 03/12/20 21:00 03/28/20 08:37 Senokot S PO Not Given BID LINDA Sodium Chloride 10 ml 03/12/20 10:04 03/16/20 20:00 Flush - Normal Saline IVF 10 ml PRN PRN Administration Saline Flush - Exam General Appearance: NAD Heart: RRR, no gallops Respiratory: no wheezes, no ronchi Gastrointestinal: non-tender, normal bowel sounds Extremities: no cyanosis Hosp A/P - Plan DVT proph w/SCDs GI bleeding Toxic metabolic encephalopathy probably due to recent use of baclofen vs UTI vs suspected pneumonia ?Aspirationcompleted antibiotics Rhabdomyolysis Nonsustained ventricular tachycardia Coronary artery disease status post stent placement Chronic systolic heart failure Peripheral vascular disease End-stage renal disease on hemodialysis Diabetes mellitus type II Hypertension Metabolic acidosis 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 GI input appreciated. Monitor H&H. EGD and colonoscopy in a.m. continue PPIs. Transfuse as needed. Continue other medications as above. Plan discussed with the son. Patient accepted at [facility]. 03/27 Completed antibiotics. Await placement. Updatepatient had dark bowel movement. Will monitor H&H and check Hemoccult. Add IV PPIs. Recheck labs in a.m. 03/19 Continue beta-blockers, antibiotics and hypertensive medications. Blood pressure dropped earlier requiring 250 mL of IV fluid bolus. Continue to monitor closely. Dialysis per nephrology. Patient is stable for discharge awaiting placement. 03/18 Continue antibiotics. Continue antiplatelet. Continue current hypertensive medications. Continue beta-blockers. Continue other medications as above. Dialysis per nephrology await placement. 03/17 Continue Omnicef. Add doxycycline. Mentation gradually improving. Continue current antihypertensive medication. Continue aspirin with Plavix. Await placement. Heparin on hold due to significant skin bruising. Dialysis per nephrology. 03/16 I discussed with patient's primary clinical medical assistant Dr. Salgado. Will need event monitor at [place]. Continue dialysis and other medications as above. Will hold subcu heparin for now due to bruising and high risk of bleeding while on aspirin and Plavix. Add nicotine patch as needed. A.m. labs 03/15 Replace potassium. Discontinue vancomycinI verified with infectious disease. Change ceftriaxone to p.o. Await records from patient's clinical medical assistant. Continue carvedilol. Resume hydralazine at low-dose. Continue nitrates. Continue aspirin and Plavix. halfway facility placement. A.m. labs. CK improving. I discussed with cardiology. 03/14 Continue empiric antibiotics. Discontinue IV hypertensive medications. EEG negative. Discontinue IV fluids. Continue sliding scale. Continue carvedilol. Patient is on aspirin/Plavix at home which will be restarted. Dialysis per nephrology. halfway facility placement. Plan discussed with the son. 03/13 Continue empiric antibiotic, continue rectal aspirin, unable to tolerate oral medication including Plavix. Obtain records from Dr. SALGADO office. MRI brain negative. Repeat chest x-ray reviewed. CK improving. Await cardio, neuro and infectious disease input. Dialysis per nephrology. Continue IV medications until patient able to tolerate oral medications. A.m. labs. We will try to place NG tube today. Continue sliding scale. Continue other medications as above. 03/12 Continue ceftriaxone, add vancomycin, monitor vancomycin level, continue aspirin , await urine cultures, dialysis per nephrology, speech therapy evaluation start IV labetalol due to inability to take po meds, recheck chest x-ray in a.m. , consult cardiology, add echocardiogram, labs in a.m Plan discussed with patient's son over the phone.Consider brain MRI if mentation does not improve. Please note that patient has 2 different medical record number. For previous records please refer to
[2020-03-28] MEDS: Polyethylene Glycol 3350 17 GM Packet PO SCH (21:08)
[2020-03-29] MEDS: Carvedilol 6.25 MG TAB PO SCH ×2 (05:54→20:46)
[2020-03-29 05:57] LABS: #Basophils 0.1 thou/uL (0.0-0.2); #Eosinphils 0.3 thou/uL (0.0-0.7); #Lymphocytes 1.6 thou/uL (1.20-3.40); #Monocytes 0.7 thou/uL (0.11-0.59); #Neutrophils 5.9 thou/uL (1.40-6.50); %Basophils 1.2 % (0.0-1.0); %Lymphocytes 18.3 % (21.0-51.0); %Monocytes 8.3 % (0.0-10.0); %Neutrophils 69.1 % (42.0-75.0); Hemoglobin 10.6 g/dL (14.0-18.0); Mean Corpuscular HGB CONC 33.2 g/dL (32.0-36.0); Mean Corpuscular Hemoglobin 39.8 pg (27.0-31.0); Mean Platelet Volume 8.2 fL (7.4-10.4); Platelet Count 228 thou/uL (130-400); RBC Distribution Width 12.7 % (11.5-14.5); Red Blood Cell (RBC) Count 2.67 mill/uL (4.70-6.10); White Blood Cell (WBC) Count 8.5 thou/uL (4.8-10.8)
[2020-03-29 06:29] LABS: Anion Gap 18 mmol/L (10-20); BUN (Urea Nitrogen) 59 mg/dL (8.4-25.7); Calc. Creatinine Clearance 10 mL/min (70-130); Calcium 8.1 mg/dL (7.8-10.44); Carbon Dioxide 26 mmol/L (23-31); Chloride 95 mmol/L (98-107); Estimated GFR-MDRD 11; Glucose 83 mg/dL (83-110); Potassium 4.9 mmol/L (3.5-5.1); Sodium 134 mmol/L (136-145)
--- NOTE | 2020-03-29 07:37 | CON ---
DATE OF CONSULTATION: 03/28/2020 REASON FOR CONSULTATION: Bloody stool. HISTORY OF PRESENT ILLNESS: Mr. Mcintosh is a 79-year-old male with end-stage renal disease on hemodialysis, who was admitted to the hospital initially with delirium. His workup has been essentially negative and baclofen was suspected to be the cause. Since then, his metabolic encephalopathy has resolved and he is fairly lucid at the present time. The patient was awaiting detention placement. Last night, he had a small volume of bloody stool. He slept fairly well without any issue until this morning when he had a large episode of bloody stool witnessed by the nursing staff. He denies having any severe abdominal pain, although he noted some vague lower discomfort. There is no nausea or vomiting. He reports having had colonoscopy many years ago, that was reportedly normal. Exact date and location were not known by the patient. Currently, he feels he is weak, but that has been there this hospitalization. He denies having any previous gastrointestinal bleeding. PAST MEDICAL HISTORY: 1. Adult onset diabetes. 2. Hypertension. 3. End-stage renal disease, on dialysis. 4. Ischemic cardiomyopathy. ALLERGIES: NONE. MEDICATIONS: Include; 1. Plavix. 2. Rocaltrol. 3. Aspirin. 4. Proscar. 5. Apresoline. 6. Insulin. 7. Imdur. 8. Labetalol. 9. Procardia. 10. MiraLAX. 11. Nicotine patch. SOCIAL HISTORY: The patient is a former smoker. He denies any tobacco usage at the present time. He denies any alcohol usage. FAMILY HISTORY: Negative for any known GI problem, liver disease, or GI malignancy. REVIEW OF SYSTEMS: Ten-point review of systems did not show any other pertinent positives or negatives. PHYSICAL EXAMINATION: VITAL SIGNS: Temperature is 97.8, blood pressure 139/58, and pulse of 60. GENERAL: He is alert without distress. HEENT: Shows anicteric sclerae. Oropharynx is dry without lesion. NECK: Supple. CV: Shows normal S1 and S2. Regular rate and rhythm. CHEST: Shows breath sounds. Clear to auscultation. ABDOMEN: Soft and nontender. Active bowel sounds. EXTREMITIES: Shows no edema. DIAGNOSTIC STUDIES: Abdominal pelvic CT performed on 03/15, it showed gallbladder sludge, right renal cyst, and consolidation of right lung base without any other acute findings. LABORATORY DATA: WBCs 8.2, hemoglobin 11.0 (11.3 five days ago), and platelet count of 288. Electrolytes within normal range. Creatinine is 4.2 and BUN of 49. ASSESSMENT: 1. Two episode of hematochezia within the last day. Exam is benign. No evidence of significantly active bleeding at the present time. Possibilities include diverticular bleed and less likely ischemic colitis. Also, less likely is neoplasm or malignancy. Source is undetermined at the present time. 2. Mild anemia, stable blood count. 3. End-stage renal disease on hemodialysis. 4. Hypertension/diabetes. RECOMMENDATION: 1. GI tract evaluation with EGD and colonoscopy tomorrow. 2. Bowel prep today. 3. Continue to trend blood count. 4. Continue Plavix for now, no indication to stop as the patient does not appear to have any severe bleeding at the present time. Job ID: [id number]
[2020-03-29] MEDS: Acetaminophen 325 MG TAB PO SCH ×3 (07:51→20:46)
[2020-03-29] MEDS: Finasteride 5 MG TAB PO SCH (07:51)
[2020-03-29] MEDS: hydrALAZINE 25 MG TAB PO SCH ×3 (07:52→20:45)
[2020-03-29] MEDS: Ferrous Sulfate 325 MG TAB PO SCH ×3 (07:52→18:42)
[2020-03-29] MEDS: Pantoprazole 40 MG VIAL IVP SCH (07:52)
[2020-03-29] MEDS: Senokot S 8.6-50 MG TAB PO SCH (07:53)
[2020-03-29] MEDS: NIFEdipine XL 30 MG TAB PO SCH (07:55)
[2020-03-29] MEDS ORDERED: PROPOFOL 200 MG/20 ML VIAL ONE (10:12)
[2020-03-29] MEDS ORDERED: Ketamine 50 MG/ML (10ML VIAL) ONE (10:12)
[2020-03-29] MEDS ORDERED: Lidocaine 1% PF 5 ML VIAL ONE (10:12)
[2020-03-29] MEDS: Saccharomyces boulardii 250 MG CAP PO SCH (14:56)
[2020-03-29] MEDS: Calcitriol 0.25 MCG CAP PO SCH (14:56)
[2020-03-29] MEDS ORDERED: Epoetin (ESRD) 20,000 UNITS/ML SC SCH (16:00)
--- NOTE | 2020-03-29 16:08 | OP ---
DATE OF PROCEDURE: 03/29/2020 PREPROCEDURE DIAGNOSES: 1. Rectal bleeding. 2. Gastrointestinal bleeding. 3. Reported small vein bloody stool yesterday. Hemoglobins remained stable since admission. PROCEDURES PERFORMED: 1. Esophagogastroduodenoscopy. 2. Colonoscopy. POSTPROCEDURE DIAGNOSES: 1. Normal esophagogastroduodenoscopy. 2. Colonoscopy with diverticulosis coli throughout the left colon. No active bleeding sites seen. 3. Diminutive polyp in the ascending colon, not removed secondary to age and comorbidities. 4. No overt bleeding seen. RECOMMENDATIONS: Advance diet as tolerated. We will sign off. Please call if you have any further assistance in care of this patient. ANESTHESIA: TIVA. PROCEDURE IN DETAIL: After the patient was informed of the risks, benefits, and possible complications of endoscopy including perforation, bleeding, reaction to medication, and aspiration, informed consent was obtained. The patient was brought to endoscopy suite where he was sedated in gradual fashion. One he was comfortable, a bite block was placed inside the orifices. The endoscope was advanced to the esophagus, stomach, and second and third portions of the duodenum and slowly removed. The esophagus, stomach, and duodenum were normal in 2nd and 3rd portions. Stomach was normal in forward and retroflexed views. There was clear bile. There was noted some heme staining bleeding sites or previous stigmata of bleeding. Retroflexed views were normal. The scope was removed. The patient was returned to the room and rectal examination was performed. The colon was very tortuous. The exam had to be completed with an upper adult endoscope as it was too tortuous to permit the passage of the colonoscope. There was diverticulosis coli through the left colon. There was no blood or old blood. There was no heme staining or blood in the diverticula. We reached the cecum, which was normal. The scope was then slowly removed. The prep was good. There was a small diminutive polyp in the ascending colon, which was not removed secondary to the patient's age and comorbidities. The scope was then slowly removed through the remainder of the colon. Retroflexed views in the rectum were normal except for small internal hemorrhoids. The scope was removed. The patient tolerated the procedure well. There were no complications. Bleeding may have been limited diverticular hemorrhoidal bleeding high-fiber diet. Job ID: [id number]
--- NOTE | 2020-03-29 16:18 | PRG ---
DATE OF SERVICE: 03/29/2020 SUBJECTIVE: Mr. Mcintosh is a 79-year-old white male with known history of ESRD and currently on maintenance hemodialysis. He is currently undergoing hemodialysis today. We are minimizing fluid removal due to decreased p.o. intake. He also underwent an endoscopy this morning. Official results are pending. No complaints of chest pain or shortness of breath. OBJECTIVE: VITAL SIGNS: Blood pressure is 146/63 with a heart rate of 58, respiratory rate 18, temperature 98, O2 saturation 94%. GENERAL: Patient is awake, comfortable, not in distress. SKIN: Adequate turgor. HEENT: He has slightly pale conjunctivae. Anicteric sclerae. NECK: No neck mass. No carotid bruits. No JVD. CHEST: No deformities. LUNGS: Clear breath sounds. HEART: Normal sinus rhythm. No murmur. No gallops. No rubs. ABDOMEN: Globular, soft, nontender. No masses. EXTREMITIES: No edema, no deformities. MEDICATIONS: March 29, 2020, reviewed. LABORATORY DATA: March 29, 2020, white count 8.5, hemoglobin 10.6. Sodium 134, potassium 4.9, chloride 95, carbon dioxide 26, BUN 59, creatinine 4.93. GFR 11 mL/minute. Calcium 8.1. ASSESSMENT AND PLAN: 1. Endstage renal disease, stable. Currently undergoing hemodialysis. Fluid removal only as tolerated. Continue Friday, Friday, and Friday dialysis. 2. Anemia. We will start Epogen. 3. Hematochezia ? - status post endoscopy. Awaiting official results. 4. Continue supportive care. Job ID: [id number]
[2020-03-29] MEDS ORDERED: EPOETIN ALFA-EPBX (ESRD) 4,000 UNIT/ML VIAL SC SCH (17:00)
--- NOTE | 2020-03-29 18:45 | PDOC.HOSPP ---
- Subjective Encounter Date: 03/29/20 Encounter Time: 14:00 Subjective: Patient seen and examined for GI bleeding. Underwent EGD and colonoscopy. No new hematemesis or melena. - Objective Vital Signs & Weight: Vital Signs (12 hours) Temp Pulse Resp BP BP BP Pulse Ox 03/29/20 14:57 58 L 147/57 H 03/29/20 12:45 146/63 H 03/29/20 12:16 98.0 F 58 L 18 177/61 H 94 L 03/29/20 12:15 59 L 16 161/63 H 94 L 03/29/20 08:00 97 03/29/20 07:55 62 175/63 H 03/29/20 07:52 62 175/63 H 03/29/20 07:18 97.9 F 62 16 184/66 H 97 Weight Admit Weight 147 lb 1.6 oz Weight 126 lb 15.78 oz I&O: 03/28/20 03/29/20 03/30/20 06:59 06:59 06:59 Intake Total 1280 4700 675 Balance 1280 4700 675 Result Diagrams: 03/29/20 05:42 03/29/20 05:42 Additional Labs: Accuchecks 03/29/20 03/28/20 12:41 20:39 POC Glucose 118 H 147 H Hospitalist ROS - Review of Systems Respiratory: denies: cough, dry, shortness of breath, hemoptysis, SOB with excertion, pleuritic pain, sputum, wheezing, other Cardiovascular: denies: chest pain, palpitations, orthopnea, paroxysmal noc. dyspnea, edema, light headedness, other - Medication Medications: Active Medications Generic Name Dose Route Start Last Admin Trade Name Freq PRN Reason Stop Dose Admin Acetaminophen 650 mg 03/11/20 17:26 03/28/20 00:58 Tylenol PO 650 mg Q4H PRN Administration Headache/Fever/Mild Pain (1-3) Acetaminophen 650 mg 03/18/20 21:00 03/29/20 14:56 Tylenol PO 650 mg TID LINDA Administration Aspirin 81 mg 03/15/20 09:00 03/27/20 08:24 Ecotrin PO 81 mg DAILY [facility] Administration Calcitriol 0.25 mcg 03/12/20 09:00 03/29/20 14:56 Rocaltrol PO 0.25 mcg DAILY [facility] Administration Calcium Carbonate 1,000 mg 03/12/20 10:04 03/26/20 20:12 Tums PO 1,000 mg Q4H PRN Administration Heartburn or Indigestion Carvedilol 6.25 mg 03/21/20 09:00 03/29/20 05:54 Coreg PO 6.25 mg BID LINDA Administration Clopidogrel Bisulfate 75 mg 03/13/20 09:00 03/28/20 08:36 Plavix PO 75 mg DAILY [facility] Administration Ferrous Sulfate 325 mg 03/12/20 08:00 03/29/20 18:42 Feosol PO 325 mg BID-WM [facility] Administration Finasteride 5 mg 03/12/20 09:00 03/29/20 07:51 Proscar PO 5 mg DAILY [facility] Administration Hydralazine HCl 10 mg 03/12/20 10:08 03/19/20 04:14 Apresoline SLOW IVP 10 mg Q4H PRN Administration SBP GREATER THAN 160 Hydralazine HCl 25 mg 03/19/20 20:02 03/29/20 14:57 Apresoline PO 25 mg TID LINDA Administration Insulin Human Lispro 0 units 03/11/20 17:26 03/28/20 12:57 Humalog SC 3 unit .MILD SLIDING SCALE PRN Administration Mild Correctional Scale Insulin Human Lispro 0 units 03/11/20 23:02 03/26/20 20:13 Humalog SC 2 unit .BEDTIME SLIDING SC PRN Administration Bedtime Correctional Scale Isosorbide Mononitrate 60 mg 03/12/20 09:00 03/29/20 07:51 Imdur PO 60 mg DAILY [facility] Administration Labetalol HCl 10 mg 03/12/20 10:04 03/13/20 21:23 Normodyne SLOW IVP 10 mg Q1H PRN Administration Systolic BP > 180 Nicotine 7 mg 03/16/20 15:28 03/22/20 19:36 Nicoderm Patch TD 7 mg Q24HR PRN Administration Smoking Cessation Nifedipine 30 mg 03/12/20 09:00 03/29/20 07:55 Procardia Xl PO 30 mg DAILY [facility] Administration Polyethylene Glycol 17 gm 03/27/20 21:00 03/28/20 21:08 Miralax PO Not Given HS [facility] Saccharomyces Boulardii 250 mg 03/18/20 09:00 03/29/20 14:56 Florastor PO 250 mg DAILY [facility] Administration Sodium Chloride 10 ml 03/12/20 10:04 03/16/20 20:00 Flush - Normal Saline IVF 10 ml PRN PRN Administration Saline Flush - Exam General Appearance: NAD Neck: supple, no JVD Heart: RRR, no gallops Respiratory: no wheezes, no ronchi Gastrointestinal: soft, non-tender, normal bowel sounds, no guarding, no rigidity Extremities: no cyanosis, no clubbing Psychiatric: normal affect, A&O x 3 Hosp A/P - Plan DVT proph w/SCDs GI bleedingMost likely due to diverticular versus hemorrhoidal bleeding Toxic metabolic encephalopathy probably due to recent use of baclofen vs UTI vs suspected pneumonia ?Aspirationcompleted antibiotics Rhabdomyolysis Nonsustained ventricular tachycardia Coronary artery disease status post stent placement Chronic systolic heart failure Peripheral vascular disease End-stage renal disease on hemodialysis Diabetes mellitus type II Hypertension Metabolic acidosis 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 Discontinue PPIs. Continue current antihypertensive medication. Monitor overnight. Recheck hemoglobin in a.m. DC to alf facility in a.m. if no overnight events. 03/28 Aspirin and Plavix on hold. GI input appreciated. Monitor H&H. EGD and colonoscopy in a.m. continue PPIs. Transfuse as needed. Continue other medications as above. Plan discussed with the son. Patient accepted at alf facility. 03/27 Completed antibiotics. Await placement. Updatepatient had dark bowel movement. Will monitor H&H and check Hemoccult. Add IV PPIs. Recheck labs in a.m. 03/19 Continue beta-blockers, antibiotics and hypertensive medications. Blood pressure dropped earlier requiring 250 mL of IV fluid bolus. Continue to monitor closely. Dialysis per nephrology. Patient is stable for discharge awaiting placement. 03/18 Continue antibiotics. Continue antiplatelet. Continue current hypertensive medications. Continue beta-blockers. Continue other medications as above. Dialysis per nephrology await placement. 03/17 Continue Omnicef. Add doxycycline. Mentation gradually improving. Continue current antihypertensive medication. Continue aspirin with Plavix. Await placement. Heparin on hold due to significant skin bruising. Dialysis per nephrology. 03/16 I discussed with patient's primary parcel post delivery Dr. Salgado. Will need event monitor at [place]. Continue dialysis and other medications as above. Will hold subcu heparin for now due to bruising and high risk of bleeding while on aspirin and Plavix. Add nicotine patch as needed. A.m. labs 03/15 Replace potassium. Discontinue vancomycinI verified with infectious disease. Change ceftriaxone to p.o. Await records from patient's parcel post delivery. Continue carvedilol. Resume hydralazine at low-dose. Continue nitrates. Continue aspirin and Plavix. correction facility placement. A.m. labs. CK improving. I discussed with cardiology. 03/14 Continue empiric antibiotics. Discontinue IV hypertensive medications. EEG negative. Discontinue IV fluids. Continue sliding scale. Continue carvedilol. Patient is on aspirin/Plavix at home which will be restarted. Dialysis per nephrology. correction facility placement. Plan discussed with the son. 03/13 Continue empiric antibiotic, continue rectal aspirin, unable to tolerate oral medication including Plavix. Obtain records from Dr. SALGADO office. MRI brain negative. Repeat chest x-ray reviewed. CK improving. Await cardio, neuro and infectious disease input. Dialysis per nephrology. Continue IV medications until patient able to tolerate oral medications. A.m. labs. We will try to place NG tube today. Continue sliding scale. Continue other medications as above. 03/12 Continue ceftriaxone, add vancomycin, monitor vancomycin level, continue aspirin , await urine cultures, dialysis per nephrology, speech therapy evaluation start IV labetalol due to inability to take po meds, recheck chest x-ray in a.m. , consult cardiology, add echocardiogram, labs in a.m Plan discussed with patient's son over the phone.Consider brain MRI if mentation does not improve. Please note that patient has 2 different medical record number. For previous records please refer to
[2020-03-29 20:12] VITALS: TEMP 98.1
[2020-03-29] MEDS: Famotidine 20 MG TAB PO SCH (20:45)
[2020-03-29] MEDS: Polyethylene Glycol 3350 17 GM Packet PO SCH (20:46)
[2020-03-30 05:58] LABS: #Basophils 0.1 thou/uL (0.0-0.2); #Eosinphils 0.1 thou/uL (0.0-0.7); #Lymphocytes 1.1 thou/uL (1.20-3.40); #Monocytes 0.7 thou/uL (0.11-0.59); #Neutrophils 7.3 thou/uL (1.40-6.50); %Basophils 0.7 % (0.0-1.0); %Eosinophils 0.8 % (0.0-10.0); %Monocytes 7.2 % (0.0-10.0); %Neutrophils 79.3 % (42.0-75.0); Hemoglobin 9.9 g/dL (14.0-18.0); Mean Corpuscular HGB CONC 32.3 g/dL (32.0-36.0); Mean Corpuscular Hemoglobin 39.4 pg (27.0-31.0); Platelet Count 190 thou/uL (130-400); RBC Distribution Width 12.3 % (11.5-14.5); Red Blood Cell (RBC) Count 2.52 mill/uL (4.70-6.10); White Blood Cell (WBC) Count 9.3 thou/uL (4.8-10.8)
[2020-03-30 06:21] LABS: Anion Gap 15 mmol/L (10-20); BUN (Urea Nitrogen) 36 mg/dL (8.4-25.7); Calc. Creatinine Clearance 12 mL/min (70-130); Calcium 8.4 mg/dL (7.8-10.44); Carbon Dioxide 27 mmol/L (23-31); Chloride 99 mmol/L (98-107); Estimated GFR-MDRD 14; Glucose 138 mg/dL (83-110); Potassium 4.9 mmol/L (3.5-5.1); Sodium 136 mmol/L (136-145)
[2020-03-30 07:17] VITALS: BP 169/60
[2020-03-30] MEDS ORDERED: Citrucel 500 MG TAB PO SCH (07:30)
[2020-03-30] MEDS: Acetaminophen 325 MG TAB PO SCH (08:21)
[2020-03-30] MEDS: Calcitriol 0.25 MCG CAP PO SCH (08:21)
[2020-03-30] MEDS: hydrALAZINE 25 MG TAB PO SCH (08:22)
[2020-03-30] MEDS: Carvedilol 6.25 MG TAB PO SCH (08:22)
[2020-03-30] MEDS: Saccharomyces boulardii 250 MG CAP PO SCH (08:22)
[2020-03-30] MEDS: Famotidine 20 MG TAB PO SCH (08:22)
[2020-03-30] MEDS: Ferrous Sulfate 325 MG TAB PO SCH (08:22)
[2020-03-30] MEDS: Finasteride 5 MG TAB PO SCH (08:22)
[2020-03-30] MEDS: NIFEdipine XL 30 MG TAB PO SCH (08:23)
--- NOTE | 2020-03-30 11:33 | DIS ---
DATE OF ADMISSION: 03/11/2020 DATE OF DISCHARGE: 03/30/2020 DISCHARGE DISPOSITION: [facility]. ALLERGIES: NO KNOWN DRUG ALLERGIES. THE PATIENT WAS SEEN AND EXAMINED ON THE DAY OF DISCHARGE. DENIES ANY NEW COMPLAINTS. NO CHEST PAIN, SHORTNESS OF BREATH, FEVER, CHILLS, OR GI BLEEDING REPORTED. DISCHARGE MEDICATIONS: 1. Vitamin D3 2000 units daily. 2. Plavix 75 mg daily. 3. Flomax 0.4 mg b.i.d. 4. Tylenol as needed. 5. Aspirin 81 mg daily. 6. Calcitriol 0.25 mcg daily. 7. Carvedilol 6.25 mg b.i.d. 8. Citrucel 500 mg daily. 9. Pepcid 20 mg b.i.d. 10. Ferrous sulfate 325 mg b.i.d. 11. Finasteride 5 mg daily. 12. Hydralazine 25 mg t.i.d. 13. Imdur 60 mg daily. 14. Procardia XL 30 mg daily. 15. MiraLAX 17 g daily. 16. Florastor 250 mg daily. FOLLOWUP: 1. Follow up with primary care physician, Dr. Deysi Church in 1 week. 2. Follow up with Dr. Salgado in 2 weeks. 3. Follow up with Neurology and Nephrology in 1 to 2 weeks. BRIEF HOSPITAL COURSE: The patient is a 79-year-old male with end-stage renal disease, on hemodialysis; hypertension; coronary artery disease and peripheral vascular disease; presented to the hospital with altered mentation with generalized weakness and fall. He was recently started on baclofen. Please refer to the history and physical for further details. The patient was monitored in the telemetry unit with above diagnosis. His mentation very slowly improved. He underwent a CT scan of the brain that was negative for acute findings. It showed atrophy and chronic white matter changes. He was also evaluated by Neurology. An MRI of the brain was performed that was negative for acute CVA. An EEG showed moderate generalized nonspecific cerebral dysfunction. The patient was evaluated by Infectious Disease as well. He was started on broad-spectrum antibiotics that was later discontinued. His blood culture was positive for coagulase-negative Staph, one of two probably contamination. The patient also had rhabdomyolysis on admission probably due to fall. His CK gradually improved. The patient has extensive cardiac history, followed by Dr. Salgado. He had nonsustained ventricular tachycardia on this admission. An echocardiogram showed ejection fraction of 30% to 35% with moderate to severe concentric left ventricular hypertrophy and moderate to severe tricuspid regurgitation. I discussed with Dr. Salgado, who recommended an outpatient event monitor. Dr. Salgado's office needs to be notified about his discharge. The patient was awaiting transfer to [facility] for almost a week due to insurance reason. Two days ago, he had a large dark bowel movement. For this reason, he was evaluated by Gastroenterology. His EGD was normal. Colonoscopy showed diverticula throughout the left colon without any active bleeding. Due to extensive coronary artery disease, peripheral vascular disease, he will be restarted back on aspirin and Plavix. He has been started on stool softeners. He has been cleared by consultants for discharge. FINAL DIAGNOSES: 1. Toxic metabolic encephalopathy, multifactorial. 2. Urinary tract infection, completed antibiotics. 3. Aspiration pneumonia, completed antibiotics. 4. Rhabdomyolysis. 5. Nonsustained ventricular tachycardia. Please notify Dr. Salgado for event monitor. 6. Coronary artery disease status post stent. 7. Chronic systolic heart failure. 8. Peripheral vascular disease. 9. End-stage renal disease, on hemodialysis. 10. Diabetes mellitus, type 2. 11. Hypertension. 12. Metabolic acidosis. 13. Acute on chronic anemia due to gastrointestinal bleeding, status post esophagogastroduodenoscopy and colonoscopy this admission. 14. History of chronic anemia due to end-stage renal disease. 15. History of left carotid endarterectomy. 16. Chronic pain syndrome. 17. Tobacco dependence, the patient was counseled. 18. One of two blood culture positive for coagulase-negative Staph, probably contamination. TIME SPENT: Time coordinating the discharge of this patient was 38 minutes. Job ID: [id number]
--- NOTE | 2020-04-01 11:37 | PQF ---
CLINICAL DOCUMENTATION CLARIFICATION FORM: Dear : eDan Knox Date / Time: 04/01/2020 Please exercise your independent, professional judgment in responding to the clarification form. Clinical indicators are provided on the bottom of this form for your review Please check appropriate box(es): [ ] Aspiration pneumonia is due to baclofen overdose [ x ] Aspiration pneumonia is not due to baclofen overdose [ ] Other diagnosis [ ] Unable to determine In addition, please specify: Present on Admission (POA): [ x ] Yes [ ] No [ ] Unable to determine To be completed by CDI/Coding staff for physician review: Present Clinical Indicators - Signs / Symptoms / Labs Results and Location in Medical Record [ x ] Metabolic encephalopathy/drug overdose from baclofen-much improved mentation Progress note 03/24 by Shabbir Jason MD [ x ] Found to have metabolic encephalopathy and may have also overdosed on his baclofen Progress note 03/25 by Shabbir Jason MD [ x ] Toxic metabolic encephalopathy probably due to recent use of baclofen versus infectious etiology Progress note 03/16 by Dean Knox MD [ x ] Mental status change, secondary to metabolic encephalopathy with the drug overdose Progress note 03/26 by Shabbir Jason MD [ x ] Aspiration pneumonia, resolved, present on admission Progress note 03/26 by Jack Carranza Present Risk Factors Results and Location in Medical Record [ x ] Baclofen overdose Progress note 03/24 by Shabbir Jason MD [ x ] Toxic metabolic encephalopathy, multifactorial, chronic systolic heart failure Discharge summary Present Treatments Results and Location in Medical Record [ x ] IV Rocephin 03/11-03/15 Medications [ x ] IV Vancomycin 03/12-03/15 Medications CDS/Pca Signature: [id number] Phone #: Date/ Time: 04/01/2020 This is a permanent part of the Medical Record [facility]
--- NOTE | 2020-04-04 14:34 | EKG ---
Test Reason : Blood Pressure : / mmHG Vent. Rate : 076 BPM Atrial Rate : 076 BPM P-R Int : 170 ms QRS Dur : 104 ms QT Int : 448 ms P-R-T Axes : 074 -51 130 degrees QTc Int : 504 ms Normal sinus rhythm Incomplete right bundle branch block Left anterior fascicular block Septal infarct , age undetermined Prolonged QT Abnormal ECG Confirmed by SHAWN RODNEY DO ([id number]), proposal editor MARILU LALA ([id number]) on 04/04/2020 2:34:18 PM Referred By: Confirmed By:SHAWN RODNEY DO
== END 2020-03-30 09:30 | DRG 177 ==
LOC: ERS 13:22 → EDBD 13:22 → 2NO 20:26 → T4-A 03-24 22:12
PROVIDERS: ADMIT Internal Medicine; ATTEND Internal Medicine
PROC: 5A1D70Z Performance of Urinary Filtration, Intermittent, Less than 6 Hours Per Day (ICD-10-PCS; 2020-03-12)
PROC: 5A1D70Z Performance of Urinary Filtration, Intermittent, Less than 6 Hours Per Day (ICD-10-PCS; 2020-03-13)
PROC: 5A1D70Z Performance of Urinary Filtration, Intermittent, Less than 6 Hours Per Day (ICD-10-PCS; 2020-03-15)
PROC: 5A1D70Z Performance of Urinary Filtration, Intermittent, Less than 6 Hours Per Day (ICD-10-PCS; 2020-03-17)
PROC: 5A1D70Z Performance of Urinary Filtration, Intermittent, Less than 6 Hours Per Day (ICD-10-PCS; 2020-03-20)
PROC: 5A1D70Z Performance of Urinary Filtration, Intermittent, Less than 6 Hours Per Day (ICD-10-PCS; 2020-03-22)
PROC: 5A1D70Z Performance of Urinary Filtration, Intermittent, Less than 6 Hours Per Day (ICD-10-PCS; 2020-03-24)
PROC: 5A1D70Z Performance of Urinary Filtration, Intermittent, Less than 6 Hours Per Day (ICD-10-PCS; 2020-03-27)
PROC: 0DJ08ZZ Inspection of Upper Intestinal Tract, Via Natural or Artificial Opening Endoscopic (ICD-10-PCS; principal; 2020-03-29)
PROC: 0DJD8ZZ Inspection of Lower Intestinal Tract, Via Natural or Artificial Opening Endoscopic (ICD-10-PCS; 2020-03-29)
PROC: 5A1D70Z Performance of Urinary Filtration, Intermittent, Less than 6 Hours Per Day (ICD-10-PCS; 2020-03-29)
DX: J69.0 Pneumonitis due to inhalation of food and vomit (principal); G92 Toxic encephalopathy; N18.6 End stage renal disease; K57.31 Diverticulosis of large intestine without perforation or abscess with bleeding; N39.0 Urinary tract infection, site not specified; M62.82 Rhabdomyolysis; I47.2 Ventricular tachycardia; I50.22 Chronic systolic (congestive) heart failure; E87.2 Acidosis; I13.2 Hypertensive heart and chronic kidney disease with heart failure and with stage 5 chronic kidney disease, or end stage renal disease; N25.81 Secondary hyperparathyroidism of renal origin; Z20.828 Contact with and (suspected) exposure to other viral communicable diseases; I25.10 Atherosclerotic heart disease of native coronary artery without angina pectoris; E11.22 Type 2 diabetes mellitus with diabetic chronic kidney disease; E78.5 Hyperlipidemia, unspecified; I25.5 Ischemic cardiomyopathy; D63.1 Anemia in chronic kidney disease; G89.4 Chronic pain syndrome; N40.0 Benign prostatic hyperplasia without lower urinary tract symptoms; Y90.0 Blood alcohol level of less than 20 mg/100 ml; T42.8X1A Poisoning by antiparkinsonism drugs and other central muscle-tone depressants, accidental (unintentional), initial encounter; R79.89 Other specified abnormal findings of blood chemistry; F10.10 Alcohol abuse, uncomplicated; E11.51 Type 2 diabetes mellitus with diabetic peripheral angiopathy without gangrene; R62.7 Adult failure to thrive; R40.2352 Coma scale, best motor response, localizes pain, at arrival to emergency department; R40.2132 Coma scale, eyes open, to sound, at arrival to emergency department; R40.2242 Coma scale, best verbal response, confused conversation, at arrival to emergency department; G93.89 Other specified disorders of brain; K63.5 Polyp of colon; R53.81 Other malaise; F17.210 Nicotine dependence, cigarettes, uncomplicated; Z95.5 Presence of coronary angioplasty implant and graft; Z99.2 Dependence on renal dialysis; Z98.890 Other specified postprocedural states; Z71.6 Tobacco abuse counseling; Z79.82 Long term (current) use of aspirin; Z79.4 Long term (current) use of insulin; Z91.15 Patient's noncompliance with renal dialysis; Y92.89 Other specified places as the place of occurrence of the external cause
CPT/HCPCS: 36415; 36416; 36600; 51701; 70450; 70551; 71045; 74018; 74177; 80048; 80053; 80076; 80202; 80306; 80307; 81003; 81015; 82140; 82274; 82533; 82550; 82553; 82607; 82746; 83605; 83735; 83880; 83970; 84100; 84443; 84484; 85014; 85018; 85025; 85610; 85730; 86850; 86900; 86901; 87040; 87086; 87149; 87340; 90471; 90670; 90935; 93005; 93306; 94760; 95712; 95819; 95957; 96361; 96365; C9113; G0009; G0257; J0360; J0696; J1644; J2704; J3370; J3490; J7050; Q5105; Q9967; S0028; U0002